=== PATIENT | male | born 1950 | race Two or more races ===

== ENCOUNTER 2016-05-16 18:52 | Inpatient (IN) | payer MEDICARE, MEDICAID ==
--- NOTE | 2016-05-16 19:26 | ED Physician Chart ---
Chief Complaint/HPI - Patient Information Date Seen:: 05/16/16 Time Seen:: 19:21 Chief Complaint:: agitation History of Present Illness:: [place] sent from [place] for difficult behavior w aggression and outbursts. pt reportely broke a window today. pt denies any major pmh. he denies any pain or recent illness or injury pt is easily aroused/upset per staff notes Allergies:: Allergies Allergy/AdvReac Type Severity Reaction Status Date / Time aspirin Allergy Verified 05/16/16 19:10 Vitals:: Vital Signs - 8 hr 05/16/16 19:12 Temp 98 F HR 63 RR 16 BP 138/62 O2 Sat % 99 Historian:: Patient, Medical Records Review:: Transfer documents Reviewed Review of Systems - Review of Systems General/Constitutional: No fever, No chills, No weight loss, No weakness, No diaphoresis, No edema, No loss of appetite Skin: No skin lesions, No rash, No bruising Head: No headache, No light-headedness Eyes: No loss of vision, No pain, No diplopia ENT: No earache, No nasal drainage, No sore throat, No tinnitus Neck: No neck pain, No swelling, No thyromegaly, No stiffness, No mass noted Cardio Vascular: No chest pain, No palpitations, No PND, No orthopnea, No edema Pulmonary: No SOB, No cough, No sputum, No wheezing GI: No nausea, No vomiting, No diarrhea, No pain, No melena, No hematochezia, No constipation, No hematemesis G/U: No dysuria, No frequency, No hematuria Musculoskeletal: No bone or joint pain, No back pain, No muscle pain Endocrine: No polyuria, No polydipsia Psychiatric: Prior psych history, No depression, No anxiety, No suicidal ideation, Other (agitation) Hematopoietic: No bruising, No lymphadenopathy Allergic/Immuno: No urticaria, No angioedema Neurological: No syncope, No focal symptoms, No weakness, No paresthesia, No headache, No seizure, No dizziness, No confusion, No vertigo Past Medical History - Past Medical History Past Medical History: DM Social History: Care Facility Psychiatricy History: Depression, Other (psychosis) Medication: Reviewed Family Medical History - Family Member Mother History Unknown: Yes Physical Exam - Physical Examination General/Constitutional: Awake, Well-developed, well-nourished, Alert, No distress, GCS 15, Non-toxic appearing, Ambulatory Other Gen/Cons comments:: currently calm and cooperative. nad oriented Head: Atraumatic Eyes: Lids, conjuctiva normal, PERRL, EOMI Skin: Nl inspection, No rash, No skin lesions, No ecchymosis, Well hydrated, No lymphadenopathy ENMT: External ears, nose nl, Nasal exam nl, Lips, teeth, gums nl Neck: Nontender, Full ROM w/o pain, No JVD, No nuchal rigidity, No bruit, No mass, No stridor Respiratory: Nl effort/Exclusion, Clear to Auscultation, No Wheeze/Rhonchi/Rales Cardio Vascular: RRR, No murmur, gallop, rubs, NL S1 S2 GI: No tenderness/rebounding/guarding, No organomegaly, No hernia, Normal BS's, Nondistended, No mass/bruits, No McBurney tenderness : No CVA tenderness Extremities: No tenderness or effusion, Full ROM, normal strength in all extremities, No edema, Normal digits & nails Neuro/Psych: Alert/oriented, DTR's symmetric, Normal sensory exam, Normal motor strength, Judgement/insight normal, Mood normal, Normal gait, No focal deficits Misc: normal gait, Normal back, No paraspinal tenderness Labs/Radiology/EKG Results - Lab Results Results: Laboratory Tests 05/16/16 05/16/16 05/16/16 19:35 19:35 19:35 WBC 6.9 RBC 4.51 Hgb 13.1 Hct 38.8 L MCV 86.1 MCH 29.1 MCHC Differential 33.8 RDW 12.5 Plt Count 222 MPV 7.9 Neutrophils % 69.3 Lymphocytes % 19.8 L Monocytes % 7.8 Eosinophils % 2.5 Basophils % 0.6 Sodium 137 Potassium 4.4 Chloride 101 Carbon Dioxide 29.8 Anion Gap 10.6 BUN 17 Creatinine 1.1 Est GFR ( Amer) > 60.0 Est GFR (Non-Af Amer) > 60.0 BUN/Creatinine Ratio 15.5 Glucose 111 H Calcium 9.7 Total Bilirubin 1.0 AST 12 L ALT 6 L Alkaline Phosphatase 91 Total Protein 7.2 Albumin 4.0 L Globulin 3.2 Albumin/Globulin Ratio 1.3 Triglycerides 179 H Cholesterol 166 LDL Cholesterol Direct 118 HDL Cholesterol 36 Urine Source CLEAN C Urine Color YELLOW Urine Clarity CLEAR Urine pH 5.5 Ur Specific Streeter 1.025 Urine Protein NEGATIVE Urine Glucose (UA) NEGATIVE Urine Ketones NEGATIVE Urine Blood NEGATIVE Urine Nitrate NEGATIVE Urine Bilirubin NEGATIVE Urine Urobilinogen 1.0 Ur Leukocyte Esterase NEGATIVE - EKG Interpretations EKG Time:: 19:45 Rhythm: nsr 60 [place]: 65 Rate: 60 Comments:: wnl ED Septic Shock - . Is Septic Shock (SBP<90, OR Lactate>4 mmol\L) present?: No - <6hrs of presentation: Vital Signs: Vital Signs - 8 hr 05/16/16 19:12 Temp 98 F HR 63 RR 16 BP 138/62 O2 Sat % 99 Reassessment (Disposition) - Reassessment Reassessment Condition:: Unchanged - Diagnosis Diagnosis:: 1 aggressive behavior 2 pt medically cleared for geripsych admission - Patient Disposition Admitted to:: [facility] Condition at Disposition:: Stable
[2016-05-16 19:49] LABS: % BASOPHILS 0.6 % (0.0-2.0); % EOSINOPHILS 2.5 % (0.0-5.0); % LYMPHOCYTES 19.8 % (20.0-50.0); % MONOCYTES 7.8 % (2.0-10.0); % NEUTROPHILS 69.3 % (40.0-80.0); HEMATOCRIT 38.8 % (39.0-49.0); HEMOGLOBIN 13.1 gm/dL (12.6-17.4); MEAN CELL VOLUME 86.1 fl (80-99); MEAN CORPUSCULAR HEMOGLOBIN 29.1 pg (27.0-31.0); MEAN CORPUSCULAR HGB CONC 33.8 pg (28.0-36.0); MEAN PLATELET VOLUME 7.9 fl; NEUTROPHILE ABSOLUTE 4.8 Th/cmm (1.8-8.0); PLATELET COUNT 222 Th/cmm (150-400); RED BLOOD COUNT 4.51 Mil/cmm (3.80-5.80); RED CELL DISTRIBUTION WIDTH 12.5 % (11.5-20.0); WHITE BLOOD COUNT 6.9 Th/cmm (4.8-10.8)
[2016-05-16 20:13] LABS: URINE BILIRUBIN NEGATIVE (NEGATIVE); URINE BLOOD NEGATIVE (NEGATIVE); URINE COLOR YELLOW; URINE GLUCOSE (UA) NEGATIVE (NEGATIVE); URINE KETONE NEGATIVE (NEGATIVE); URINE PH 5.5; URINE PROTEIN NEGATIVE (NEGATIVE)
[2016-05-16 20:14] LABS: ALB/GLOB RATIO 1.3 (1.0-1.8); ALKALINE PHOSPHATASE 91 U/L (34-104); ANION GAP 10.6 (7.0-16.0); BUN - UREA NITROGEN 17 mg/dL (7-25); BUN/CREATININE RATIO 15.5; CALCIUM SERUM 9.7 mg/dL (8.6-10.3); CARBON DIOXIDE 29.8 mEq/L (21.0-31.0); CHLORIDE 101 mEq/L (98-107); CHOLESTEROL 166 mg/dL (<200); CREATININE - SERUM 1.1 mg/dL (0.7-1.3); GLUCOSE 111 mg/dL (70-105); POTASSIUM SERUM 4.4 mEq/L (3.5-5.1); SGOT 12 U/L (13-39); SGPT/ALT 6 U/L (7-52); SODIUM SERUM 137 mEq/L (136-145); TRIGLYCERIDES 179 mg/dL (<150)
[2016-05-16] MEDS ORDERED: Maalox 30 mL Cup PO PRN (21:35)
[2016-05-16] MEDS ORDERED: Magnesium Hydroxide (MOM) 30 mL UDC PO PRN (21:35)
[2016-05-17 00:03] VITALS: BP 137/76
--- NOTE | 2016-05-17 09:42 | Psychosocial Evaluation ---
IDENTIFYING INFORMATION: The patient is a 65-year-old male. CHIEF COMPLAINT: No information from the patient. HISTORY OF PRESENT ILLNESS: The patient from [place] as the patient apparently get agitated, broke a window, he was aggressive, anger outburst, broke a window. The patient himself denies any such thing. He was a poor historian. He knew however, he is in the hospital, he knew the date. The patient reports he sleeps well and eats well. He denies any auditory or visual hallucinations. The patient is a well known case to me. I have been seeing him for the past 2 years while he was at [place]. He used to be at [place] in the past once. The patient has been demented and confused. PAST PSYCHIATRIC HISTORY: The patient was hospitalized at [place] before because of confusion and dementia. MEDICAL HISTORY: Deferred to the medical doctor. FAMILY AND SOCIAL HISTORY: The patient is . He has two children. He used to work in [employer]. He is retired. He has the [employer]. He reports he has a family that is very supportive. ALLERGIES: The patient is allergic to aspirin. MENTAL STATUS EXAMINATION: The patient is appropriately dressed, not well groomed. His mood is depressed. Affect is constricted. Thoughts are concrete. Speech is coherent. He was alert. He was oriented to place, person and time, but not to situation. He reports he sleep well and eat well. He denies any intent to harm himself or anybody though he broke a window. He was very agitated. He does not acknowledge that. He denies any auditory or visual hallucination. He is impulsive and unpredictable. Long and short term is good. He can remember his age, but recent memory is poor. He cannot remember the events led to coming here. His insight and judgment is impaired. He is impulsive, unpredictable. IMPRESSION: AXIS I: Dementia with behavior disturbances. MEDICAL DIAGNOSES: Deferred to the medical doctor. His assets he is accepting and negative poor coping ____. INITIAL TREATMENT PLAN: The patient will continue with Aricept 10 mg at bedtime. We will do group therapy, milieu therapy and individual therapy. We will watch his behavior and make sure the patient is safe. ESTIMATED LENGTH OF STAY: 3-7 days. DISCHARGE CRITERIA: Decreased agitation, no longer threatening. After discharge, outpatient treatment. [facility]# [id number]
[2016-05-17] MEDS: Multivitamin Tab PO SCH (10:09)
[2016-05-17 12:15] LABS: HEP B CORE IGM Negative (Negative); HEP C ANTIBODY <0.1 s/co ratio (0.0-0.9)
--- NOTE | 2016-05-17 14:03 | History & Physical ---
HISTORY OF PRESENT ILLNESS: The patient is a 65-year-old male with long history of chronic constipation, degenerative joint disease, dementia, admitted to [facility] under Dr. Sahh's service for evaluation and treatment. The patient has been very confused, combative. No chest pain, no shortness of breath, no nausea, no vomiting, no fever, no chills. PAST MEDICAL HISTORY: Significant for chronic constipation, degenerative joint disease, dementia. PAST SURGICAL HISTORY: No recent surgery. ALLERGIES: Aspirin. SOCIAL HISTORY: No smoking, no alcohol, no drug. FAMILY HISTORY: Noncontributory. MEDICATIONS: Follow admission reconciliation. REVIEW OF SYSTEMS: RENAL SYSTEM: No history of chronic renal disorder. CARDIOVASCULAR SYSTEM: No coronary artery disease. ENDOCRINE SYSTEM: No diabetes or thyroid problem. GASTROINTESTINAL SYSTEM: No upper or lower gastrointestinal bleed. NEUROLOGICAL: He has history of dementia. PHYSICAL EXAMINATION: GENERAL: He is awake, not coherent. VITAL SIGNS: Temperature 98, heart rate 78, blood pressure 134/84. HEENT: Normocephalic. Pupils reacting equal to light and accommodation. Sclerae clear. NECK: Supple. Negative for lymphadenopathy, JVD or bruit. CHEST: Bilateral normal. No rhonchi or wheezing. HEART: S1, S2 normal. No murmur or gallop. ABDOMEN: Soft. Bowel sounds positive. EXTREMITIES: No edema. BACK: No tenderness. SKIN: Intact. GENITALIA AND RECTAL: No complaint, ____ primary physician. NEUROLOGIC: He is awake, alert, not fully oriented. No focal motor or sensory deficits. Cranial nerves 2-12 intact. ASSESSMENT: 1. Chronic constipation. 2. Degenerative joint disease. 3. Dementia. PLAN: The patient will be admitted to the hospital under Dr. Shah's service. Medical problems to be addressed during hospitalization is dementia and psychosis. Medical problems to be addressed at discharge is constipation and degenerative joint disease. The patient is medically stable for activity. Thank you, Dr. Shah for asking me to see your patient. JOB# [id number]
[2016-05-18] MEDS: Multivitamin Tab PO SCH (09:35)
--- NOTE | 2016-05-19 03:43 | Progress Notes ---
Case was discussed with staff of the patient, reviewed records. The patient continues to be confused and depressed. Continues to stay to himself, unable to carry on a conversation or make safe plan for self-care. He is sleeping well and eating well. He is compliant with the medication with no side effects. He looked disheveled, disorganized, and internally preoccupied. I will be adding Lexapro to his medication to help with his depression, and so far, no side effects with the current medication, no sedation, no nausea, and we will continue to work with the patient in group therapy, milieu therapy, and adjust the medications as needed. JOB# [id number]
[2016-05-19] MEDS: Escitalopram Oxalate 5 mg Tab PO SCH (08:59)
[2016-05-19] MEDS: Multivitamin Tab PO SCH (09:00)
--- NOTE | 2016-05-20 01:00 | Progress Notes ---
Case was discussed with staff of the patient, reviewed records. The patient continues to be depressed, isolating himself, feeling irritable at times, unpredictable, impulsive, needing redirection. He is sleeping well and eating better. He is compliant. He still gets agitated at times, but so far, he is compliant with the medication with no side effects, no sedation, no nausea, and I initiated Lexapro on the patient for the covering psychiatrist, medication may need to be adjusted and watched for side effects. We will continue to work with the patient in group therapy, milieu therapy, and adjust medication as needed. JOB# [id number]
[2016-05-20] MEDS: Multivitamin Tab PO SCH (09:08)
[2016-05-20] MEDS: Escitalopram Oxalate 5 mg Tab PO SCH (09:08)
--- NOTE | 2016-05-20 19:26 | Progress Notes ---
SUBJECTIVE: The patient seen, chart reviewed, discussed with staff. The patient currently __in__ the hospital. Again, the patient currently in the hospital, agitation, broke window, aggressive, angry outbursts. The patient is a poor historian, history of dementia, noted to be with wandering episodes, states he is here because, "I fell down." _AO___ to name, place, not situation and he knows the year and the month. Dr. Shah has been adjusting and titrating medications. The patient is isolative, not quite sure where he is going to go upon discharge. Eating with prompting. Sleeping fairly well. ASSESSMENT: The patient remains symptomatic, wanders, history of agitation and aggression, remains impulsive and unpredictable. PLAN: Continue to monitor. The patient unable to participate in self-care planning discussions at this time due to the severity of his confusion. PLAN: We will continue to monitor and titrate medications as tolerated. [facility]# [id number]
[2016-05-21] MEDS: Escitalopram Oxalate 5 mg Tab PO SCH (09:24)
[2016-05-21] MEDS: Multivitamin Tab PO SCH (09:25)
--- NOTE | 2016-05-21 21:42 | Progress Notes ---
SUBJECTIVE: The patient was seen, chart reviewed, and discussed with staff. The patient is currently in the hospital, agitation, aggressive, angry outbursts, and history of depression. On [id number], the patient is sleeping, arousable, but not really talking to me. He remains pretty confused, disoriented, and still with the wandering episodes. Staff noting he continues to require a lot of prompting and redirection. Still isolative. Eating is with prompting. Sleeping fairly well. No overt side effects noted to the medications. ASSESSMENT: The patient remains impulsive and unpredictable. History of agitation and aggression. PLAN: Due to the persistence of the patient's symptoms that are continued with concerns for safety, we will continue to monitor and titrate his medications. The patient is to follow up with Dr. Shah in the morning. JOB# [id number]
[2016-05-22] MEDS: Escitalopram Oxalate 5 mg Tab PO SCH (09:48)
[2016-05-22] MEDS: Multivitamin Tab PO SCH (09:49)
--- NOTE | 2016-05-23 04:59 | Progress Notes ---
Case discussed with staff of the patient, reviewed records. The patient is reported by the staff that he has been isolating himself. He continues to be unpredictable, impulsive. His family wanting to be in the place where they could pacify him on the way home in [place]. I asked the staff to make sure that the case picker work on it. The patient so far is compliant with the medication with no side effects, no sedation, no nausea, ____ placement for him and he has been compliant with the medication with no side effects and his RPR is reactive and testing for ____ has been sent. His hepatitis panel was negative. His TSH within normal range. His CBC shows a low hematocrit and low lymphocytes, the rest within normal range. Urinalysis within normal range. Chemistry panel with high blood sugar. The rest is within normal range. Triglyceride is high at 179. I will be consulting the medical doctor regarding abnormal lab work and we will continue to work with the patient in group therapy, milieu therapy, adjust the medication as needed. JOB# [id number]
[2016-05-23] MEDS: Multivitamin Tab PO SCH (09:11)
[2016-05-23] MEDS: Escitalopram Oxalate 5 mg Tab PO SCH (09:11)
[2016-05-23 20:09] LABS: FTA ABS TREPONEMA PALLIDUM Non Reactive (Non Reactive)
--- NOTE | 2016-05-24 00:45 | Progress Notes ---
Case was discussed with staff of the patient, reviewed records. The patient is showing some progress. He is able to talk about his feelings. He is participating in groups. He is depressed. He wants to live on his own, though he is demented, cannot live on his own. His brother wanted him to live in a place where he could come and visit him daily and to be on his way home, which is in [place], and I asked the staff to ____ wish for the brother, so the patient could get to see his family more often and he was at [place] and I will be increasing Lexapro to 10 mg a day to help with his depression and will continue to work with the patient in group therapy, milieu therapy, and adjust medications as needed. JOB# [id number]
[2016-05-24] MEDS: Multivitamin Tab PO SCH (10:13)
--- NOTE | 2016-05-25 00:50 | Progress Notes ---
Case was discussed with staff of the patient. The patient has been described to be sundowning, continues to have episodes of confusion, continues to need redirection. He is already on Aricept 10 mg at bedtime. I increased the dose of Lexapro to 10 mg a day. I will be adding Namenda to his medication and so far, no side effects with the medication, no sedation, and no nausea. We will continue to work with the patient in group therapy, milieu therapy, and adjust the medication as needed. JOB# [id number]
[2016-05-25] MEDS: Multivitamin Tab PO SCH (09:43)
--- NOTE | 2016-05-26 02:29 | Progress Notes ---
Case was discussed with staff of the patient, reviewed records. The patient continues to be reported to have episodes where he sundowns and continues to have episodes of confusion and irritability. I did initiate Namenda on the patient. I discussed with Yadira, the chart nurse, the situation where the patient has a positive RPR; however, we do not have the results of , and I do not see any orders from Dr. Morse so far. He was informed 3 days ago about this and no side effects with the medication, no sedation, no nausea, and no extrapyramidal symptoms. We will continue to work with the patient in group therapy, milieu therapy, and adjust medication as needed. JOB# [id number]
[2016-05-26] MEDS: Multivitamin Tab PO SCH (08:55)
--- NOTE | 2016-05-27 02:43 | Progress Notes ---
Case was discussed with staff of the patient, reviewed records. The patient continues to be confused, demented with the episodes of sundowning. He continues to be unpredictable, impulsive, needing redirection. I initiated Namenda on him. Also, he started on penicillin because of the positive RPR because of syphilis. He is compliant with the medication with no side effects, no sedation, no nausea, and we will continue to work with the patient in group therapy, milieu therapy, and adjust medications as needed. JOB# [id number]
[2016-05-27] MEDS: Multivitamin Tab PO SCH (08:41)
--- NOTE | 2016-05-28 01:46 | Progress Notes ---
Dr. Jose is covering for Dr. Shah. SUBJECTIVE: Chart was reviewed and the patient interviewed. Also discussed the patient's condition with the staff and reviewed records and labs. The patient remains depressed. The patient is still pacing up and down the unit. Also, he is isolative and withdrawn. Also during my interview, the patient is guarded and he does not want to talk much. The patient's brother called me yesterday and he refused to answer his call and when asked about reasons, he said, "I do not want to do this." The patient is still extremely angry and depressed. He is still guarded. Otherwise, he is compliant with taking his medications with no side effects of medications. ASSESSMENT: The patient is still depressed and confused. TREATMENT PLAN: We will continue to monitor his behavior and his condition closely. Also, continue to work on his depression and anger, and we will continue to follow up with you. JOB# [id number]
[2016-05-28] MEDS: Multivitamin Tab PO SCH (08:47)
--- NOTE | 2016-05-29 01:54 | Progress Notes ---
SUBJECTIVE: Chart reviewed and the patient interviewed. Also, discussed the patient's condition with the staff and reviewed records and labs. The patient is still anxious and still seems to be paranoid and suspicious. The patient also is still depressed and wants to be left alone. The patient also still does not want to talk about his family and the reason for his anger towards them____. The patient also is still isolative. Otherwise, the patient continued to comply with taking his medications and the patient denies any side effects of medications. ASSESSMENT: The patient is still depressed. TREATMENT PLAN: Continue monitoring his behavior and his condition closely. Also, continue to work on his ineffective coping and followup. JOB# [id number]
[2016-05-29] MEDS: Multivitamin Tab PO SCH (08:53)
--- NOTE | 2016-05-30 00:41 | Progress Notes ---
Case was discussed with staff of the patient, reviewed records. The patient has been isolating himself. Continues to have sundowning, continues to stay to himself, poor eye contact. We are working also on placement for this patient. He is compliant with the medication with no side effects, no sedation, and no nausea. I will be increasing his Namenda to 5 mg twice a day to help improve his cognition. Hopefully, that will help him feel better and so far no side effects, no sedation, no nausea, and we will continue to work with the patient in group therapy, milieu therapy, and adjust the medication as needed. JOB# [id number]
[2016-05-30] MEDS: Multivitamin Tab PO SCH (09:02)
--- NOTE | 2016-05-31 00:25 | Progress Notes ---
Case was discussed with staff of the patient, reviewed records. The patient continues to be confused, stays to himself. Continues to be unpredictable and impulsive. He tolerated the increase in Lexapro with no side effects and I have added Namenda and increased the dose yesterday to 5 mg twice a day and so far, no side effects, no sedation, no nausea, and no extrapyramidal symptoms. We will continue to work with the patient in group therapy, milieu therapy, and adjust medication as needed. JOB# [id number]
[2016-05-31] MEDS: Multivitamin Tab PO SCH (08:59)
--- NOTE | 2016-05-31 22:46 | Progress Notes ---
Case discussed with staff of the patient, reviewed records. The patient continues to be confused and demented. Continues to have poor insight. Continues to be unable to make safe plan for self-care. Continues to need redirection, unpredictable, impulsive, depressed, isolate himself and also working on placement for patient and so far no side effects, no sedation, no nausea, no extrapyramidal symptoms and the staff reports finding place ____ see him and I will continue to work with patient in group therapy, milieu therapy, adjust medication as needed. JOB# [id number]
[2016-06-01] MEDS: Multivitamin Tab PO SCH (09:00)
--- NOTE | 2016-06-01 18:57 | Discharge Summary ---
IDENTIFYING INFORMATION: The patient is a 65-year-old male. REASON FOR HOSPITALIZATION: The patient was sent from [place] because of agitation. He has been acting depressed, having crying spells, isolating himself. He has been unable to participate in meaningful conversation or make safe plan for self-care. He has dementia. He is a well known case to me. I have seen him in the past at this facility, also seen him in [place] and also [facility]. COURSE IN THE HOSPITAL: I started the patient for his depression on Lexapro, increased the dose to 10 mg a day. He was continued with the Aricept 10 mg at bedtime and also added Namenda 5 mg, increased to 5 mg twice a day. He was found to have syphilis and he was given benzathine penicillin with the first dose being on the 05/26/2016. The patient also was continued on the thiamine, timolol optic solution. The patient progressively improved. He was sleeping well, eating well. He was no longer acting in anyway dangerous. At the beginning, the family reported that they want the patient to go to a facility in [place]; however, the family changed their mind after the manager of case management called this morning the brother. He said that he is okay with the brother going back to [place], so as we have a placement for him, the patient was discharged to a lesser level of care. FINAL DIAGNOSIS: AXIS I: Dementia with behavioral disturbances. MEDICAL DIAGNOSIS: Syphilis. The patient will be going to [place], will follow up with the psychiatrist, primary care physician and therapist. Also, he needs to get the extra injection of the benzathine penicillin.. EXPECTED OUTCOME: Stable if the patient complies with the above. JOB# [id number]
--- NOTE | 2016-06-01 20:40 | Progress Notes ---
Case was discussed with staff of the patient, reviewed records. The patient seems to be showing progress. Sleeping better and eating better. He has been in general still confused, demented, but he is not acting anyway dangerous. He is sleeping better and eating better. The staff so far is trying to work on placement. I hear it from the staff that home health care case manager was not sure that if his brother wants him to go to [place] or somewhere ____ and she will work on it and if we have a placement available today, he would be discharged. Otherwise, we will do it when the placement becomes available as we cannot live on his own because of his dementia and behavior and we will continue to work with the patient in group therapy, milieu therapy, and adjust medications as needed. JOB# [id number]
== END 2016-06-01 15:15 | DRG 884 ==
LOC: ER 18:52 → EDSEX 18:52 → GERO 20:25
PROVIDERS: ADMIT Psychiatry & Neurology Psychiatry; ATTEND Psychiatry & Neurology Psychiatry
DX: F03.91 Unspecified dementia, unspecified severity, with behavioral disturbance (principal); F32.9 Major depressive disorder, single episode, unspecified; E11.9 Type 2 diabetes mellitus without complications; K59.00 Constipation, unspecified; A53.9 Syphilis, unspecified; M19.90 Unspecified osteoarthritis, unspecified site; Z88.6 Allergy status to analgesic agent
CPT/HCPCS: 36415-UA; 80053-TC; 80061-TC; 80074-90; 81003-TC; 82948-90; 84443-TC; 85025-TC; 86592-TC; 86593-TC; 86780-90; 90899; 93005; G0410; J0561; Z7610

== ENCOUNTER 2017-03-23 17:39 | Inpatient (IN) | payer MEDICARE, MEDICAID ==
[2017-03-23 18:09] LABS: % BASOPHILS 0.3 % (0.0-2.0); % EOSINOPHILS 1.8 % (0.0-5.0); % LYMPHOCYTES 17.4 % (20.0-50.0); % MONOCYTES 6.8 % (2.0-10.0); % NEUTROPHILS 73.7 % (40.0-80.0); HEMOGLOBIN 14.6 gm/dL (12-16); MEAN CELL VOLUME 90.4 fl (80-99); MEAN CORPUSCULAR HEMOGLOBIN 30.7 pg (27.0-31.0); MEAN CORPUSCULAR HGB CONC 33.9 pg (28.0-36.0); MEAN PLATELET VOLUME 8.4 fl; NEUTROPHILE ABSOLUTE 4.1 Th/cmm (1.8-8.0); PLATELET COUNT 162 Th/cmm (150-400); RED BLOOD COUNT 4.76 Mil/cmm (3.80-5.80); RED CELL DISTRIBUTION WIDTH 12.7 % (11.5-20.0); WHITE BLOOD COUNT 5.6 Th/cmm (4.8-10.8)
[2017-03-23 18:25] LABS: URINE BILIRUBIN NEGATIVE (NEGATIVE); URINE BLOOD TRACE (NEGATIVE); URINE GLUCOSE (UA) NEGATIVE (NEGATIVE); URINE KETONE NEGATIVE (NEGATIVE); URINE PH 5.5 (4.6 - 8.0); URINE PROTEIN NEGATIVE (NEGATIVE)
[2017-03-23 18:27] LABS: ALB/GLOB RATIO 1.6 (1.0-1.8); ALKALINE PHOSPHATASE 65 U/L (34-104); ANION GAP 9.2 (7.0-16.0); BILIRUBIN,TOTAL 0.8 mg/dL (0.3-1.0); CALCIUM SERUM 9.3 mg/dL (8.6-10.3); CARBON DIOXIDE 25.7 mEq/L (21.0-31.0); CHLORIDE 104 mEq/L (98-107); CREATININE - SERUM 0.9 mg/dL (0.7-1.3); GLUCOSE 102 mg/dL (70-105); MAGNESIUM 2.1 mg/dL (1.9-2.7); POTASSIUM SERUM 3.9 mEq/L (3.5-5.1); SGOT 13 U/L (13-39); SGPT/ALT 5 U/L (7-52); SODIUM SERUM 135 mEq/L (136-145)
[2017-03-23 18:30] LABS: URINE COLOR YELLOW
[2017-03-23 18:31] LABS: URINE BACTERIA OCCASIONAL /hpf (NONE SEEN); URINE EPITHELIAL CELLS FEW /lpf (FEW); URINE WBC 0-2 /hpf (0-5)
[2017-03-23 19:45] LABS: BUN/CREATININE RATIO 24.4
[2017-03-23 19:47] LABS: BUN - UREA NITROGEN 22 mg/dL (7-25)
[2017-03-23] MEDS ORDERED: Magnesium Hydroxide (MOM) 30 mL UDC PO PRN (22:49)
[2017-03-23 23:49] VITALS: BP 141/84
[2017-03-24] MEDS ORDERED: Maalox 30 mL Cup PO PRN (01:15)
[2017-03-24] MEDS: Multivitamin w/ Minerals Tab PO SCH (08:46)
--- NOTE | 2017-03-24 12:47 | History & Physical ---
ADMIT DATE: 03/24/2017 IDENTIFYING INFORMATION: The patient is a 66-year-old male. CHIEF COMPLAINT: "I wanted to harm myself." HISTORY OF PRESENT ILLNESS: The patient was seen by me yesterday at [place], and he was upset, angry. He reports that he will find a way to kill himself. The patient has been easily agitated, irritable. Today, he was a bit calmer. He was denying any intent to harm self or anybody. He told the staff that he got upset because I keep asking about his suicidal ideation, which I usually have to do all the time. He has been sleeping well, eating well. He denies any current auditory or visual hallucination or paranoia. PAST PSYCHIATRIC HISTORY: Multiple prior admissions for similar reasons. MEDICATIONS: The patient has been on Depakote and Aricept and Namenda. He is getting demented, confused. He is on Aricept 10 mg at bedtime, Lexapro 20 mg daily, Namenda 10 mg twice a day. ALLERGIES: THE PATIENT IS ALLERGIC TO ASPIRIN. MEDICAL HISTORY: Deferred to the medical doctor. FAMILY AND SOCIAL HISTORY: The patient is , has 2 children. He has 1 son who killed himself. He used to work for a [employer]. He is retired, [employer]. Family is supportive. MENTAL STATUS EXAMINATION: The patient is appropriately dressed, appropriately groomed. Mood is depressed. Affect is sad. Thoughts are clear. Speech crying yesterday. He was suicidal today. He is better. He reports that he will be able to contract for safety, but his sleep and appetite varies. He denies any auditory or visual hallucination, not feeling paranoid. Long-term term memory and short term memory are poor. Insight and judgment are impaired. IMPRESSION: AXIS I: Major depression, recurrent, severe with no psychosis, dementia. MEDICAL DIAGNOSES: Deferred to the medical doctor. His assets, he wants to get help. Negative poor coping skills. INITIAL TREATMENT PLAN: The patient will be continued on medication. We will do group therapy, milieu therapy, individual therapy. ESTIMATED LENGTH OF STAY: 3-7 days. DISCHARGE CRITERIA: Decreasing depression, no longer suicidal, after discharge, outpatient treatment. JOB# [id number]
--- NOTE | 2017-03-24 17:00 | History & Physical ---
ADMIT DATE: REFERRING PHYSICIAN: Jordon Liu MD CHIEF COMPLAINT: Agitation. HISTORY OF PRESENT ILLNESS: A 66-year-old male with past medical history significant for diabetes and dementia who presents after apparently getting agitated and aggressive. The patient is a poor historian and denies any medical complaints. PAST MEDICAL HISTORY: The patient has history of diabetes mellitus, traumatic brain injury, dementia, anemia, and glaucoma. MEDICATIONS: As per reconciliation. ALLERGIES: The patient has allergy to aspirin. SOCIAL HISTORY: The patient lives in a [facility]. No tobacco, alcohol, or illicit drug use. FAMILY HISTORY: Noncontributory. REVIEW OF SYSTEMS: IMMUNOLOGIC: No recurrent infection. CARDIOVASCULAR: The patient has no known history of heart disease or hypertension. GI: No nausea, vomiting, or diarrhea. ENDOCRINE: The patient has diabetes. No thyroid disorder. NEUROLOGIC: No seizure or stroke. HEMATOLOGIC: No bleeding or clotting disorder. The patient has chronic anemia. PHYSICAL EXAMINATION: GENERAL: The patient is awake, alert, oriented, and in no acute distress. VITAL SIGNS: Temperature 97.3, pulse 62, respirations 20, and blood pressure 117/76. HEENT: Pupils are equally round. Anicteric sclerae. NECK: Supple. No JVD, mass, or bruit. LUNGS: Clear to auscultation. HEART: S1 and S2. Regular rate and rhythm. ABDOMEN: Soft and nontender. Positive bowel sounds. EXTREMITIES: No clubbing, cyanosis, or edema. NEUROLOGIC: Moves all extremities equally and no lateralizing sign. IMPRESSION: 1. Dementia. 2. History of traumatic brain injury. 3. Diabetes mellitus type 2. 4. Anemia. 5. Glaucoma. PLAN: Continue the patient's current medications. He is to continue his diabetic regimen. He is medically cleared to participate in activities and is to follow up with primary care physician upon discharge. JOB# [id number]
--- NOTE | 2017-03-24 21:19 | ER Physician Documentation ---
DATE OF SERVICE: EMERGENCY ROOM EVALUATION IDENTIFICATION: This patient was sent to this hospital because the patient was depressed and wanting to kill himself. He was sent by [facility], telephone [phone]. The patient has a previous history of diabetes. The patient was sent here by Dr. Chelle Morse. The patient's primary physician is Dr. Morse. Alternate physician, ____. Psychiatrist is Dr. Belen Shah. ENT is Dr. Kalin Dobson. [facility] phone number is [phone]. CHIEF COMPLAINT: The patient has some delusion, verbalizing that he wants to kill himself but he said he did not say that, they asked him and he said yes when the time comes he would kill himself but not right now, why kill now at the present moment, that is what he told me. HISTORY OF PRESENT ILLNESS: The patient seems to be comfortable, lying in bed, not in any acute distress. He has no cardiac complaints. He has no pulmonary complaints. There are no other significant complaints. 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 The other diagnosis that he carries, a diagnosis of diabetes mellitus also he carries with him. Past history otherwise is significant for dementia. PAST SURGICAL HISTORY: None. MEDICATIONS: Please follow the profile that is given. REVIEW OF SYSTEMS: EYES: No history of double vision, blurring, blindness. CENTRAL NERVOUS SYSTEM: No TIA, stroke, encephalitis, meningitis. Grossly normal. PULMONARY: No history of pneumonia, TB, pulmonary embolism. GASTROINTESTINAL: No history of diarrhea, upper or lower GI bleeding. GENERAL: The patient is awake, alert, oriented, not in any acute cardiorespiratory distress. Overall, he looks to be okay. HEENT: Normal. Conjunctivae pink. Sclerae white. Jugular venous pressure is normal. There is no cyanosis, petechia, ecchymosis. CHEST: Clear without any rales, rhonchi, or bronchial breathing. ABDOMEN: Soft, benign and negative. He denied killing himself at the present moment. His past medical problem addressed during hospitalization in the past was psychosis but he was advised cleared for physical activity. PAST PSYCHIATRIC HISTORY: The patient was hospitalized here and also at [facility] because of aggressive behavior. He is impulsive and unpredictable. This is a past history, now which is given to me. MEDICAL HISTORY: Anemia, glaucoma, dementia, and history of traumatic brain injury. ALLERGIC: Aspirin. MEDICATIONS: The patient takes vitamin D, Aricept 10 mg at bedtime, Lexapro 10 mg at bedtime, Namenda 10 mg twice daily, multivitamin, thiamine and timolol. FAMILY AND SOCIAL HISTORY: Reveals that he is . He has 2 sons, 40 years of age. He used to work in [employer]. He occasionally smokes. He occasionally drinks beer. He is retired. [employer]. No family psychiatric history. Family is supportive. The patient was seen here and did not find him to be in any aggressive behavior. Abdomen is soft and benign and negative. Central nervous system is normal. I do not see any definite blood pressure medications that he is taking. In conclusion, the patient has excessive agitation, wanting to kill himself, but he said he does not want to kill himself at the present moment. EKG was done which is within normal limits, normal sinus rhythm. The patient has many other diagnoses which include anemia, unspecified; type 2 diabetes mellitus without any complications; difficulty in walking, not elsewhere classified; unspecified lack of coordination; personal history of traumatic brain injury; unspecified glaucoma; unspecified dementia with behavioral disturbances; major depressive disorder, single episode, unspecified; unspecified psychosis, not due to substance or known physiological conditions; primary generalized osteoarthritis; primary osteoarthritis, right shoulder. The patient had lab workup done. Urine examination was showing negative and had only 2-5 wbc's present. Chemistry is showing sodium 135, potassium 3.9, chloride 104, CO2 of 25.7, BUN is not yet available, creatinine is normal or near-normal I should say at 0.9, glucose is 102, so diabetes if he has it is under control, calcium is 9.3, magnesium 2.1, bilirubin is 0.8, AST is 13, ALT is 5, alkaline phosphatase is 65, total protein 6.6, and albumin is 4.1. The patient's hematology shows white count of 5.6, hemoglobin is 14.6, hematocrit is 43, platelet count 162,000, neutrophils 73.7, lymphocytes 17.4, monocytes 6.8, eosinophils 1.8. So once we get the BUN, probably the patient could be sent to a psychiatric hospital. I do not see any acute medical condition that keeps the patient here. JOB# [id number]
[2017-03-25] MEDS: Multivitamin w/ Minerals Tab PO SCH (08:30)
--- NOTE | 2017-03-25 17:09 | General Progress Note ---
Subjective - Review of Systems Service Date: 03/25/17 Subjective: resting comfortably no distress Objective - Results Result Diagrams: 03/23/17 18:00 03/23/17 18:00 Recent Labs: Laboratory Last Values WBC 5.6 Th/cmm (4.8-10.8) 03/23/17 18:00 RBC 4.76 Mil/cmm (3.80-5.80) 03/23/17 18:00 Hgb 14.6 gm/dL (12-16) 03/23/17 18:00 Hct 43.0 % (41.0-60) 03/23/17 18:00 MCV 90.4 fl (80-99) 03/23/17 18:00 MCH 30.7 pg (27.0-31.0) 03/23/17 18:00 MCHC Differential 33.9 pg (28.0-36.0) 03/23/17 18:00 RDW 12.7 % (11.5-20.0) 03/23/17 18:00 Plt Count 162 Th/cmm (150-400) 03/23/17 18:00 MPV 8.4 fl 03/23/17 18:00 Neutrophils % 73.7 % (40.0-80.0) 03/23/17 18:00 Lymphocytes % 17.4 % (20.0-50.0) L 03/23/17 18:00 Monocytes % 6.8 % (2.0-10.0) 03/23/17 18:00 Eosinophils % 1.8 % (0.0-5.0) 03/23/17 18:00 Basophils % 0.3 % (0.0-2.0) 03/23/17 18:00 Sodium 135 mEq/L (136-145) L 03/23/17 18:00 Potassium 3.9 mEq/L (3.5-5.1) 03/23/17 18:00 Chloride 104 mEq/L (98-107) 03/23/17 18:00 Carbon Dioxide 25.7 mEq/L (21.0-31.0) 03/23/17 18:00 Anion Gap 9.2 (7.0-16.0) 03/23/17 18:00 BUN 22 mg/dL (7-25) 03/23/17 18:00 Creatinine 0.9 mg/dL (0.7-1.3) 03/23/17 18:00 Est GFR ( Amer) > 60.0 ml/min (>90) 03/23/17 18:00 Est GFR (Non-Af Amer) > 60.0 ml/min 03/23/17 18:00 BUN/Creatinine Ratio 24.4 03/23/17 18:00 Glucose 102 mg/dL (70-105) 03/23/17 18:00 POC Glucose 101 MG/DL (70 - 105) 03/25/17 06:30 Calcium 9.3 mg/dL (8.6-10.3) 03/23/17 18:00 Magnesium 2.1 mg/dL (1.9-2.7) 03/23/17 18:00 Total Bilirubin 0.8 mg/dL (0.3-1.0) 03/23/17 18:00 AST 13 U/L (13-39) 03/23/17 18:00 ALT 5 U/L (7-52) L 03/23/17 18:00 Alkaline Phosphatase 65 U/L (34-104) 03/23/17 18:00 Total Protein 6.6 gm/dL (6.0-8.3) 03/23/17 18:00 Albumin 4.1 gm/dL (4.2-5.5) L 03/23/17 18:00 Globulin 2.5 gm/dL 03/23/17 18:00 Albumin/Globulin Ratio 1.6 (1.0-1.8) 03/23/17 18:00 Urine Source CLEAN C 03/23/17 18:20 Urine Color YELLOW 03/23/17 18:20 Urine Clarity CLEAR (CLEAR) 03/23/17 18:20 Urine pH 5.5 (4.6 - 8.0) 03/23/17 18:20 Ur Specific [place] >= 1.030 (1.005-1.030) 03/23/17 18:20 Urine Protein NEGATIVE mg/dL (NEGATIVE) 03/23/17 18:20 Urine Glucose (UA) NEGATIVE mg/dL (NEGATIVE) 03/23/17 18:20 Urine Ketones NEGATIVE mg/dL (NEGATIVE) 03/23/17 18:20 Urine Blood TRACE (NEGATIVE) 03/23/17 18:20 Urine Nitrate NEGATIVE (NEGATIVE) 03/23/17 18:20 Urine Bilirubin NEGATIVE (NEGATIVE) 03/23/17 18:20 Urine Urobilinogen 1.0 E.U./dL (0.2 - 1.0) 03/23/17 18:20 Ur Leukocyte Esterase NEGATIVE (NEGATIVE) 03/23/17 18:20 Urine RBC 2-5 /hpf (0-5) H 03/23/17 18:20 Urine WBC 0-2 /hpf (0-5) 03/23/17 18:20 Ur Epithelial Cells FEW /lpf (FEW) 03/23/17 18:20 Urine Bacteria OCCASIONAL /hpf (NONE SEEN) 03/23/17 18:20 - Physical Exam Vitals and I&O: Vital Signs Temp 97.8 F 03/25/17 16:19 Pulse 90 03/25/17 16:19 Resp 20 03/25/17 16:19 BP 114/88 03/25/17 16:19 Pulse Ox 97 03/25/17 16:19 Intake & Output 03/24/17 03/25/17 03/25/17 18:59 06:59 18:59 Intake Total 700 720 Balance 700 720 Intake: Oral 700 720 Other: # Voids 4 1 # Bowel Movements 2 Stool Characteristics Soft Soft Formed Formed Active Medications: Current Medications Acetaminophen (Tylenol) 650 mg PO Q4HR PRN PRN Reason: Pain Stop: 05/22/17 22:48 Al Hydrox/Mg Hydrox/Simethicone (Maalox) 30 ml PO Q6H PRN PRN Reason: Dyspepsia Stop: 05/23/17 01:14 Cholecalciferol (Vitamin D3) 3,000 iu PO DAILY [facility] Stop: 05/23/17 08:59 Last Admin: 03/25/17 08:29 Dose: 3,000 iu Docusate Sodium (Colace) 100 mg PO BID [facility] Stop: 05/23/17 08:59 Last Admin: 03/25/17 16:42 Dose: 100 mg Donepezil HCl (Aricept) 10 mg PO HS [facility] Stop: 05/23/17 20:59 Last Admin: 03/24/17 21:01 Dose: 10 mg Escitalopram Oxalate (Lexapro) 20 mg PO DAILY [facility] PRN Reason: Protocol Stop: 05/23/17 08:59 Last Admin: 03/25/17 08:29 Dose: 20 mg Lorazepam (Ativan) 0.5 mg PO Q6H PRN; Protocol PRN Reason: Anxiety/Agitation Stop: 05/23/17 01:14 Magnesium Hydroxide (Milk Of Magnesia) 30 ml PO DAILY PRN PRN Reason: Constipation Stop: 05/22/17 22:48 Memantine (Namenda) 10 mg PO BID [facility] Stop: 05/23/17 08:59 Last Admin: 03/25/17 16:42 Dose: 10 mg Thiamine HCl (Vitamin B1) 100 mg PO DAILY [facility] Stop: 05/23/17 08:59 Last Admin: 03/25/17 08:30 Dose: 100 mg Timolol Maleate (Timoptic 0.5% Oph Soln) 1 drop EACH EYE BID [facility] Stop: 05/23/17 08:59 Last Admin: 03/25/17 16:42 Dose: 1 drop Zolpidem Tartrate (Ambien) 5 mg PO HS PRN PRN Reason: Insomnia Stop: 05/23/17 01:14 General: Alert HEENT: Atraumatic, PERRLA, EOMI Neck: Supple, JVD Cardiovascular: Regular rate, Normal S1, Normal S2 Lungs: Clear to auscultation Abdomen: Bowel sounds, Soft Assessment/Plan - Assessment Assessment: 1. Dementia. 2. History of traumatic brain injury. 3. Diabetes mellitus type 2. 4. Anemia. 5. Glaucoma. - Plan Plan: cont current treatment
--- NOTE | 2017-03-25 23:41 | Progress Notes ---
DATE: 03/25/2017 Case was discussed with staff of the patient. The patient is minimizing the events that led to coming here. He is sleeping better, eating better. He is demented, confused. He is on Lexapro 10 mg a day, Aricept 10 mg at bedtime. No side effects with the medication, no sedation, no nausea. No extrapyramidal symptoms. We will continue to work with the patient in group therapy, milieu therapy, and adjust the medication as needed. JOB# [id number]
[2017-03-26] MEDS: Multivitamin w/ Minerals Tab PO SCH (08:47)
--- NOTE | 2017-03-26 16:43 | Internal Medicine Prog Note ---
Internal Medicine Subjective - Subjective Service Date: 03/26/17 Patient seen and examined:: with staff Patient is:: awake, verbal, in bed, talking, confused Per staff patient has:: no adverse event Internal Medicine Objective - Results Result Diagrams: 03/23/17 18:00 03/23/17 18:00 Recent Labs: Laboratory Last Values WBC 5.6 Th/cmm (4.8-10.8) 03/23/17 18:00 RBC 4.76 Mil/cmm (3.80-5.80) 03/23/17 18:00 Hgb 14.6 gm/dL (12-16) 03/23/17 18:00 Hct 43.0 % (41.0-60) 03/23/17 18:00 MCV 90.4 fl (80-99) 03/23/17 18:00 MCH 30.7 pg (27.0-31.0) 03/23/17 18:00 MCHC Differential 33.9 pg (28.0-36.0) 03/23/17 18:00 RDW 12.7 % (11.5-20.0) 03/23/17 18:00 Plt Count 162 Th/cmm (150-400) 03/23/17 18:00 MPV 8.4 fl 03/23/17 18:00 Neutrophils % 73.7 % (40.0-80.0) 03/23/17 18:00 Lymphocytes % 17.4 % (20.0-50.0) L 03/23/17 18:00 Monocytes % 6.8 % (2.0-10.0) 03/23/17 18:00 Eosinophils % 1.8 % (0.0-5.0) 03/23/17 18:00 Basophils % 0.3 % (0.0-2.0) 03/23/17 18:00 Sodium 135 mEq/L (136-145) L 03/23/17 18:00 Potassium 3.9 mEq/L (3.5-5.1) 03/23/17 18:00 Chloride 104 mEq/L (98-107) 03/23/17 18:00 Carbon Dioxide 25.7 mEq/L (21.0-31.0) 03/23/17 18:00 Anion Gap 9.2 (7.0-16.0) 03/23/17 18:00 BUN 22 mg/dL (7-25) 03/23/17 18:00 Creatinine 0.9 mg/dL (0.7-1.3) 03/23/17 18:00 Est GFR ( Amer) > 60.0 ml/min (>90) 03/23/17 18:00 Est GFR (Non-Af Amer) > 60.0 ml/min 03/23/17 18:00 BUN/Creatinine Ratio 24.4 03/23/17 18:00 Glucose 102 mg/dL (70-105) 03/23/17 18:00 POC Glucose 99 MG/DL (70 - 105) 03/26/17 06:20 Calcium 9.3 mg/dL (8.6-10.3) 03/23/17 18:00 Magnesium 2.1 mg/dL (1.9-2.7) 03/23/17 18:00 Total Bilirubin 0.8 mg/dL (0.3-1.0) 03/23/17 18:00 AST 13 U/L (13-39) 03/23/17 18:00 ALT 5 U/L (7-52) L 03/23/17 18:00 Alkaline Phosphatase 65 U/L (34-104) 03/23/17 18:00 Total Protein 6.6 gm/dL (6.0-8.3) 03/23/17 18:00 Albumin 4.1 gm/dL (4.2-5.5) L 03/23/17 18:00 Globulin 2.5 gm/dL 03/23/17 18:00 Albumin/Globulin Ratio 1.6 (1.0-1.8) 03/23/17 18:00 Urine Source CLEAN C 03/23/17 18:20 Urine Color YELLOW 03/23/17 18:20 Urine Clarity CLEAR (CLEAR) 03/23/17 18:20 Urine pH 5.5 (4.6 - 8.0) 03/23/17 18:20 Ur Specific [place] >= 1.030 (1.005-1.030) 03/23/17 18:20 Urine Protein NEGATIVE mg/dL (NEGATIVE) 03/23/17 18:20 Urine Glucose (UA) NEGATIVE mg/dL (NEGATIVE) 03/23/17 18:20 Urine Ketones NEGATIVE mg/dL (NEGATIVE) 03/23/17 18:20 Urine Blood TRACE (NEGATIVE) 03/23/17 18:20 Urine Nitrate NEGATIVE (NEGATIVE) 03/23/17 18:20 Urine Bilirubin NEGATIVE (NEGATIVE) 03/23/17 18:20 Urine Urobilinogen 1.0 E.U./dL (0.2 - 1.0) 03/23/17 18:20 Ur Leukocyte Esterase NEGATIVE (NEGATIVE) 03/23/17 18:20 Urine RBC 2-5 /hpf (0-5) H 03/23/17 18:20 Urine WBC 0-2 /hpf (0-5) 03/23/17 18:20 Ur Epithelial Cells FEW /lpf (FEW) 03/23/17 18:20 Urine Bacteria OCCASIONAL /hpf (NONE SEEN) 03/23/17 18:20 - Physical Exam Vitals and I&O: Vital Signs Temp 98.2 F 03/26/17 16:35 Pulse 69 03/26/17 16:35 Resp 18 03/26/17 16:35 BP 120/78 03/26/17 16:35 Pulse Ox 98 03/26/17 16:35 Intake & Output 03/25/17 03/26/17 03/26/17 18:59 06:59 18:59 Intake Total 900 480 Balance 900 480 Intake: Oral 900 480 Other: # Voids 3 2 # Bowel Movements 1 Active Medications: Current Medications Acetaminophen (Tylenol) 650 mg PO Q4HR PRN PRN Reason: Pain Stop: 05/22/17 22:48 Al Hydrox/Mg Hydrox/Simethicone (Maalox) 30 ml PO Q6H PRN PRN Reason: Dyspepsia Stop: 05/23/17 01:14 Aripiprazole (Abilify) 2.5 mg PO DAILY [facility] PRN Reason: Protocol Stop: 05/26/17 08:59 Cholecalciferol (Vitamin D3) 3,000 iu PO DAILY [facility] Stop: 05/23/17 08:59 Last Admin: 03/26/17 08:47 Dose: 3,000 iu Docusate Sodium (Colace) 100 mg PO BID [facility] Stop: 05/23/17 08:59 Last Admin: 03/26/17 09:25 Dose: Not Given Donepezil HCl (Aricept) 10 mg PO HS [facility] Stop: 05/23/17 20:59 Last Admin: 03/25/17 20:55 Dose: 10 mg Escitalopram Oxalate (Lexapro) 20 mg PO DAILY [facility] PRN Reason: Protocol Stop: 05/23/17 08:59 Last Admin: 03/26/17 08:47 Dose: 20 mg Lorazepam (Ativan) 0.5 mg PO Q6H PRN; Protocol PRN Reason: Anxiety/Agitation Stop: 05/23/17 01:14 Magnesium Hydroxide (Milk Of Magnesia) 30 ml PO DAILY PRN PRN Reason: Constipation Stop: 05/22/17 22:48 Memantine (Namenda) 10 mg PO BID [facility] Stop: 05/23/17 08:59 Last Admin: 03/26/17 08:47 Dose: 10 mg Thiamine HCl (Vitamin B1) 100 mg PO DAILY [facility] Stop: 05/23/17 08:59 Last Admin: 03/26/17 08:48 Dose: 100 mg Timolol Maleate (Timoptic 0.5% Ophth Soln) 1 drop EACH EYE BID [facility] Stop: 05/23/17 08:59 Last Admin: 03/26/17 08:47 Dose: 1 drop Zolpidem Tartrate (Ambien) 5 mg PO HS PRN PRN Reason: Insomnia Stop: 05/23/17 01:14 General: demented HEENT: NC/AT, PERRLA, EOMI, anicteric sclerae, throat clear Neck: Supple, No JVD, No thyromegaly, +2 carotid pulse wo bruit, No LAD Lungs: CTAB Cardiovascular: RRR, Normal S1, Normal S2, without murmur Abdomen: soft, non-tender, non-distended Extremities: clear Neurological: no change Internal Medicine Assmt/Plan - Assessment Assessment: 1.DM. 2.TBI. 3.ANEMIA. 4.DEMENTIA. - Plan Plan: CONTINUE ON CURRENT MEDICATION AND DIET.
--- NOTE | 2017-03-26 21:49 | Progress Notes ---
DATE: 03/26/2017 The patient has been isolating himself. He is sleeping well. He is eating well. He tends to smile when I approach him. He is minimizing that he wants to harm himself, not the way he presented the first day when he was admitted here. He was very angry, irritable, easily agitated. He is compliant with the medication with no side effects, no sedation, no nausea, and no extrapyramidal symptoms. Because of the history of the severe depression, I will be initiating Abilify on him. As the patient is at high suicide risk especially with his son killing himself and that is something that bother him a lot. We will continue to work with the patient in group therapy, milieu therapy, adjust the medication as needed. JOB# [id number]
[2017-03-27] MEDS: Multivitamin w/ Minerals Tab PO SCH (09:00)
--- NOTE | 2017-03-27 19:47 | Internal Medicine Prog Note ---
Internal Medicine Subjective - Subjective Service Date: 03/27/17 Patient seen and examined:: with staff Patient is:: awake, verbal, in bed, talking, confused Per staff patient has:: no adverse event Internal Medicine Objective - Results Result Diagrams: 03/23/17 18:00 03/23/17 18:00 Recent Labs: Laboratory Last Values WBC 5.6 Th/cmm (4.8-10.8) 03/23/17 18:00 RBC 4.76 Mil/cmm (3.80-5.80) 03/23/17 18:00 Hgb 14.6 gm/dL (12-16) 03/23/17 18:00 Hct 43.0 % (41.0-60) 03/23/17 18:00 MCV 90.4 fl (80-99) 03/23/17 18:00 MCH 30.7 pg (27.0-31.0) 03/23/17 18:00 MCHC Differential 33.9 pg (28.0-36.0) 03/23/17 18:00 RDW 12.7 % (11.5-20.0) 03/23/17 18:00 Plt Count 162 Th/cmm (150-400) 03/23/17 18:00 MPV 8.4 fl 03/23/17 18:00 Neutrophils % 73.7 % (40.0-80.0) 03/23/17 18:00 Lymphocytes % 17.4 % (20.0-50.0) L 03/23/17 18:00 Monocytes % 6.8 % (2.0-10.0) 03/23/17 18:00 Eosinophils % 1.8 % (0.0-5.0) 03/23/17 18:00 Basophils % 0.3 % (0.0-2.0) 03/23/17 18:00 Sodium 135 mEq/L (136-145) L 03/23/17 18:00 Potassium 3.9 mEq/L (3.5-5.1) 03/23/17 18:00 Chloride 104 mEq/L (98-107) 03/23/17 18:00 Carbon Dioxide 25.7 mEq/L (21.0-31.0) 03/23/17 18:00 Anion Gap 9.2 (7.0-16.0) 03/23/17 18:00 BUN 22 mg/dL (7-25) 03/23/17 18:00 Creatinine 0.9 mg/dL (0.7-1.3) 03/23/17 18:00 Est GFR ( Amer) > 60.0 ml/min (>90) 03/23/17 18:00 Est GFR (Non-Af Amer) > 60.0 ml/min 03/23/17 18:00 BUN/Creatinine Ratio 24.4 03/23/17 18:00 Glucose 102 mg/dL (70-105) 03/23/17 18:00 POC Glucose 99 MG/DL (70 - 105) 03/26/17 06:20 Calcium 9.3 mg/dL (8.6-10.3) 03/23/17 18:00 Magnesium 2.1 mg/dL (1.9-2.7) 03/23/17 18:00 Total Bilirubin 0.8 mg/dL (0.3-1.0) 03/23/17 18:00 AST 13 U/L (13-39) 03/23/17 18:00 ALT 5 U/L (7-52) L 03/23/17 18:00 Alkaline Phosphatase 65 U/L (34-104) 03/23/17 18:00 Total Protein 6.6 gm/dL (6.0-8.3) 03/23/17 18:00 Albumin 4.1 gm/dL (4.2-5.5) L 03/23/17 18:00 Globulin 2.5 gm/dL 03/23/17 18:00 Albumin/Globulin Ratio 1.6 (1.0-1.8) 03/23/17 18:00 Urine Source CLEAN C 03/23/17 18:20 Urine Color YELLOW 03/23/17 18:20 Urine Clarity CLEAR (CLEAR) 03/23/17 18:20 Urine pH 5.5 (4.6 - 8.0) 03/23/17 18:20 Ur Specific [place] >= 1.030 (1.005-1.030) 03/23/17 18:20 Urine Protein NEGATIVE mg/dL (NEGATIVE) 03/23/17 18:20 Urine Glucose (UA) NEGATIVE mg/dL (NEGATIVE) 03/23/17 18:20 Urine Ketones NEGATIVE mg/dL (NEGATIVE) 03/23/17 18:20 Urine Blood TRACE (NEGATIVE) 03/23/17 18:20 Urine Nitrate NEGATIVE (NEGATIVE) 03/23/17 18:20 Urine Bilirubin NEGATIVE (NEGATIVE) 03/23/17 18:20 Urine Urobilinogen 1.0 E.U./dL (0.2 - 1.0) 03/23/17 18:20 Ur Leukocyte Esterase NEGATIVE (NEGATIVE) 03/23/17 18:20 Urine RBC 2-5 /hpf (0-5) H 03/23/17 18:20 Urine WBC 0-2 /hpf (0-5) 03/23/17 18:20 Ur Epithelial Cells FEW /lpf (FEW) 03/23/17 18:20 Urine Bacteria OCCASIONAL /hpf (NONE SEEN) 03/23/17 18:20 - Physical Exam Vitals and I&O: Vital Signs Temp 97.4 F 03/27/17 14:00 Pulse 69 03/27/17 14:00 Resp 20 03/27/17 14:00 BP 122/67 03/27/17 14:00 Pulse Ox 97 03/27/17 14:00 Intake & Output 03/27/17 03/27/17 03/28/17 06:59 18:59 06:59 Intake Total 480 700 Balance 480 700 Intake: Oral 480 700 Other: # Voids 3 3 # Bowel Movements 0 1 Active Medications: Current Medications Acetaminophen (Tylenol) 650 mg PO Q4HR PRN PRN Reason: Pain Stop: 05/22/17 22:48 Al Hydrox/Mg Hydrox/Simethicone (Maalox) 30 ml PO Q6H PRN PRN Reason: Dyspepsia Stop: 05/23/17 01:14 Aripiprazole (Abilify) 2.5 mg PO DAILY [facility] PRN Reason: Protocol Stop: 05/26/17 08:59 Last Admin: 03/27/17 09:00 Dose: 2.5 mg Cholecalciferol (Vitamin D3) 3,000 iu PO DAILY [facility] Stop: 05/23/17 08:59 Last Admin: 03/27/17 09:00 Dose: 3,000 iu Docusate Sodium (Colace) 100 mg PO BID [facility] Stop: 05/23/17 08:59 Last Admin: 03/27/17 17:51 Dose: 100 mg Donepezil HCl (Aricept) 10 mg PO HS [facility] Stop: 05/23/17 20:59 Last Admin: 03/26/17 20:47 Dose: 10 mg Escitalopram Oxalate (Lexapro) 20 mg PO DAILY [facility] Stop: 05/27/17 08:59 Lorazepam (Ativan) 0.5 mg PO Q6H PRN PRN Reason: Anxiety/Agitation Stop: 05/26/17 10:42 Magnesium Hydroxide (Milk Of Magnesia) 30 ml PO DAILY PRN PRN Reason: Constipation Stop: 05/22/17 22:48 Memantine (Namenda) 10 mg PO BID [facility] Stop: 05/23/17 08:59 Last Admin: 03/27/17 17:51 Dose: 10 mg Thiamine HCl (Vitamin B1) 100 mg PO DAILY [facility] Stop: 05/23/17 08:59 Last Admin: 03/27/17 09:00 Dose: 100 mg Timolol Maleate (Timoptic 0.5% Ophth Soln) 1 drop EACH EYE BID [facility] Stop: 05/23/17 08:59 Last Admin: 03/27/17 17:51 Dose: 1 drop Zolpidem Tartrate (Ambien) 5 mg PO HS PRN PRN Reason: Insomnia Stop: 05/23/17 01:14 Last Admin: 03/26/17 20:47 Dose: 5 mg General: demented HEENT: NC/AT, PERRLA, EOMI, anicteric sclerae, throat clear Neck: Supple, No JVD, No thyromegaly, +2 carotid pulse wo bruit, No LAD Lungs: CTAB Cardiovascular: RRR, Normal S1, Normal S2, without murmur Abdomen: soft, non-tender, non-distended Extremities: clear Neurological: no change Internal Medicine Assmt/Plan - Assessment Assessment: 1.DM. 2.TBI. 3.ANEMIA. 4.DEMENTIA. - Plan Plan: CONTINUE ON CURRENT MEDICATION AND DIET.
--- NOTE | 2017-03-27 22:43 | Progress Notes ---
DATE: 03/27/2017 Case was discussed with staff of the patient, reviewed records. The patient tolerated the Abilify with no side effects. He has been, however, isolating himself. He is minimizing any current intent to harm self or anybody, sleeping better, eating better. No side effects of the medication, no sedation, no nausea, no extrapyramidal symptoms. We will continue outpatient group therapy, milieu therapy, adjust medication as needed. JOB# [id number]
[2017-03-28] MEDS: Multivitamin w/ Minerals Tab PO SCH (09:08)
--- NOTE | 2017-03-28 10:37 | Progress Notes ---
DATE: 03/28/2017 Case was discussed with staff of patient, reviewed records. The patient continues to be depressed, isolating himself. Continues to have poor insight. Unable to make safe plan for self-care. He is sleeping well, eating well. No side effects from the medication, no sedation, no nausea, no extrapyramidal symptoms. He tolerated the Abilify. We continue to work the patient in group therapy, milieu therapy and adjust medications as needed. JOB# [id number]
--- NOTE | 2017-03-28 19:50 | Internal Medicine Prog Note ---
Internal Medicine Subjective - Subjective Service Date: 03/28/17 Patient seen and examined:: without staff Patient is:: awake, verbal, in bed, talking, confused Per staff patient has:: no adverse event Internal Medicine Objective - Results Result Diagrams: 03/23/17 18:00 03/23/17 18:00 Recent Labs: Laboratory Last Values WBC 5.6 Th/cmm (4.8-10.8) 03/23/17 18:00 RBC 4.76 Mil/cmm (3.80-5.80) 03/23/17 18:00 Hgb 14.6 gm/dL (12-16) 03/23/17 18:00 Hct 43.0 % (41.0-60) 03/23/17 18:00 MCV 90.4 fl (80-99) 03/23/17 18:00 MCH 30.7 pg (27.0-31.0) 03/23/17 18:00 MCHC Differential 33.9 pg (28.0-36.0) 03/23/17 18:00 RDW 12.7 % (11.5-20.0) 03/23/17 18:00 Plt Count 162 Th/cmm (150-400) 03/23/17 18:00 MPV 8.4 fl 03/23/17 18:00 Neutrophils % 73.7 % (40.0-80.0) 03/23/17 18:00 Lymphocytes % 17.4 % (20.0-50.0) L 03/23/17 18:00 Monocytes % 6.8 % (2.0-10.0) 03/23/17 18:00 Eosinophils % 1.8 % (0.0-5.0) 03/23/17 18:00 Basophils % 0.3 % (0.0-2.0) 03/23/17 18:00 Sodium 135 mEq/L (136-145) L 03/23/17 18:00 Potassium 3.9 mEq/L (3.5-5.1) 03/23/17 18:00 Chloride 104 mEq/L (98-107) 03/23/17 18:00 Carbon Dioxide 25.7 mEq/L (21.0-31.0) 03/23/17 18:00 Anion Gap 9.2 (7.0-16.0) 03/23/17 18:00 BUN 22 mg/dL (7-25) 03/23/17 18:00 Creatinine 0.9 mg/dL (0.7-1.3) 03/23/17 18:00 Est GFR ( Amer) > 60.0 ml/min (>90) 03/23/17 18:00 Est GFR (Non-Af Amer) > 60.0 ml/min 03/23/17 18:00 BUN/Creatinine Ratio 24.4 03/23/17 18:00 Glucose 102 mg/dL (70-105) 03/23/17 18:00 POC Glucose 96 MG/DL (70 - 105) 03/28/17 06:39 Calcium 9.3 mg/dL (8.6-10.3) 03/23/17 18:00 Magnesium 2.1 mg/dL (1.9-2.7) 03/23/17 18:00 Total Bilirubin 0.8 mg/dL (0.3-1.0) 03/23/17 18:00 AST 13 U/L (13-39) 03/23/17 18:00 ALT 5 U/L (7-52) L 03/23/17 18:00 Alkaline Phosphatase 65 U/L (34-104) 03/23/17 18:00 Total Protein 6.6 gm/dL (6.0-8.3) 03/23/17 18:00 Albumin 4.1 gm/dL (4.2-5.5) L 03/23/17 18:00 Globulin 2.5 gm/dL 03/23/17 18:00 Albumin/Globulin Ratio 1.6 (1.0-1.8) 03/23/17 18:00 Urine Source CLEAN C 03/23/17 18:20 Urine Color YELLOW 03/23/17 18:20 Urine Clarity CLEAR (CLEAR) 03/23/17 18:20 Urine pH 5.5 (4.6 - 8.0) 03/23/17 18:20 Ur Specific [place] >= 1.030 (1.005-1.030) 03/23/17 18:20 Urine Protein NEGATIVE mg/dL (NEGATIVE) 03/23/17 18:20 Urine Glucose (UA) NEGATIVE mg/dL (NEGATIVE) 03/23/17 18:20 Urine Ketones NEGATIVE mg/dL (NEGATIVE) 03/23/17 18:20 Urine Blood TRACE (NEGATIVE) 03/23/17 18:20 Urine Nitrate NEGATIVE (NEGATIVE) 03/23/17 18:20 Urine Bilirubin NEGATIVE (NEGATIVE) 03/23/17 18:20 Urine Urobilinogen 1.0 E.U./dL (0.2 - 1.0) 03/23/17 18:20 Ur Leukocyte Esterase NEGATIVE (NEGATIVE) 03/23/17 18:20 Urine RBC 2-5 /hpf (0-5) H 03/23/17 18:20 Urine WBC 0-2 /hpf (0-5) 03/23/17 18:20 Ur Epithelial Cells FEW /lpf (FEW) 03/23/17 18:20 Urine Bacteria OCCASIONAL /hpf (NONE SEEN) 03/23/17 18:20 - Physical Exam Vitals and I&O: Vital Signs Temp 98.2 F 03/28/17 14:00 Pulse 79 03/28/17 14:00 Resp 20 03/28/17 14:00 BP 127/80 03/28/17 14:00 Pulse Ox 97 03/28/17 14:00 Intake & Output 03/28/17 03/28/17 03/29/17 06:59 18:59 06:59 Intake Total 180 800 Balance 180 800 Intake: Oral 180 800 Other: # Voids 1 3 # Bowel Movements 0 0 Stool Characteristics Soft Formed Active Medications: Current Medications Acetaminophen (Tylenol) 650 mg PO Q4HR PRN PRN Reason: Pain Stop: 05/22/17 22:48 Al Hydrox/Mg Hydrox/Simethicone (Maalox) 30 ml PO Q6H PRN PRN Reason: Dyspepsia Stop: 05/23/17 01:14 Aripiprazole (Abilify) 2.5 mg PO DAILY [facility] PRN Reason: Protocol Stop: 05/26/17 08:59 Last Admin: 03/28/17 09:08 Dose: 2.5 mg Cholecalciferol (Vitamin D3) 3,000 iu PO DAILY [facility] Stop: 05/23/17 08:59 Last Admin: 03/28/17 09:07 Dose: 3,000 iu Docusate Sodium (Colace) 100 mg PO BID [facility] Stop: 05/23/17 08:59 Last Admin: 03/28/17 16:27 Dose: 100 mg Donepezil HCl (Aricept) 10 mg PO HS [facility] Stop: 05/23/17 20:59 Last Admin: 03/27/17 21:23 Dose: 10 mg Escitalopram Oxalate (Lexapro) 20 mg PO DAILY [facility] Stop: 05/27/17 08:59 Last Admin: 03/28/17 09:08 Dose: 20 mg Lorazepam (Ativan) 0.5 mg PO Q6H PRN PRN Reason: Anxiety/Agitation Stop: 05/26/17 10:42 Magnesium Hydroxide (Milk Of Magnesia) 30 ml PO DAILY [facility] PRN Reason: Constipation Stop: 05/22/17 22:48 Memantine (Namenda) 10 mg PO BID [facility] Stop: 05/23/17 08:59 Last Admin: 03/28/17 16:27 Dose: 10 mg Thiamine HCl (Vitamin B1) 100 mg PO DAILY [facility] Stop: 05/23/17 08:59 Last Admin: 03/28/17 09:08 Dose: 100 mg Timolol Maleate (Timoptic 0.5% Oph Soln) 1 drop EACH EYE BID [facility] Stop: 05/23/17 08:59 Last Admin: 03/28/17 16:27 Dose: 1 drop Zolpidem Tartrate (Ambien) 5 mg PO HS PRN PRN Reason: Insomnia Stop: 05/23/17 01:14 Last Admin: 03/27/17 21:23 Dose: 5 mg General: demented HEENT: NC/AT, PERRLA, EOMI, anicteric sclerae, throat clear Neck: Supple, No JVD, No thyromegaly, +2 carotid pulse wo bruit, No LAD Lungs: CTAB Cardiovascular: RRR, Normal S1, Normal S2, without murmur Abdomen: soft, non-tender, non-distended Extremities: clear Neurological: no change Internal Medicine Assmt/Plan - Assessment Assessment: 1.DM. 2.TBI. 3.ANEMIA. 4.DEMENTIA. - Plan Plan: CONTINUE ON CURRENT MEDICATION AND DIET. Nutritional Asmnt/Malnutr-PDOC - Dietary Evaluation Malnutrition Findings (Please click <Entered> for more info): Nutritional Asmnt/Malnutrition Start: 03/28/17 12: 36 Text: Status: Complete Freq: Document 03/28/17 12:36 REBECCA (Rec: 03/28/17 12:53 LCHENG [email or web address]) Nutritional Asmnt/Malnutrition Patient General Information Nutritional Screening Moderate Risk Diagnosis psychosis, agitation Pertinent Medical Hx/Surgical Hx DM, traumatic brain injury, dementia, anemia, glaucoma Subjective Information Pt seen lying on bed in his room. Spoke to nurse, pt did not eat breakfast this morning . Visited again during lunch time, pt was eating burgers brought by his brother. Per note, PO intake 100%. YUNIOR Sun reported pt POC 90-100 WNL, considering regular diet. Current Diet Order/ [facility] Pertinent Medications Vit D3, Vit B1 Pertinent Labs 03/23 Na 135L, ALT 5 L, Alb 4. 1L, Glu 102 POC 92-101 Nutritional Hx/Data Height 1.65 m Height (Calculated Centimeters) 165.1 Current Weight (lbs) 75.296 kg Weight (Calculated Kilograms) 75.3 Weight (Calculated Grams) 62422.3 [place] Body Weight 136 % [place] Body Weight 122 Body Mass Index (BMI) 27.6 Weight Status Overweight GI Symptoms GI Symptoms None Last BM 03/27 Difficult in: None Food Allergies No Usual diet at home not able to obtain Skin Integrity/Comment: intact Current %PO Fair (50-74%) Estimated Nutritional Goals BEE in Kcals: Using Current wt Calories/Kcals/Kg 25-30 Kcals Calculated 6600-6411 Protein: Using Current wt Protein g/k.8-1 Protein Calculated 60-75 Fluid: ml 0506-5694 Nutritional Problem No current Nutrition Prob Problem N/A Malnutrition Alert Protein-Calorie Malnutrition N/A Is there a minimum of two criteria No selected? Query Text:Check all the applicable criteria. A minimum of two criteria are recommended for diagnosis of either severe or non-severe malnutrition. Intervention/Recommendation Comments 1. Recommended regular diet d/ t pt has normal glucose level. YUNIOR Sun will notify when MD is here this afternoon. 2. monitor wt weekly, glucose, skin integrity 3. F/U as moderate risk in 3-5 days, 03/31-04/02 Expected Outcomes/Goals Expected Outcomes/Goals 1. PO intake continue to meet 100% of nutritional needs 2. wt stability, skin to remain intact, glucose WNL
[2017-03-29] MEDS: Multivitamin w/ Minerals Tab PO SCH (08:05)
--- NOTE | 2017-03-29 21:43 | Progress Notes ---
DATE: 03/29/2017 Case was discussed with staff of the patient, reviewed records. The patient has been isolating himself, continues to have poor insight, unable to make safe plan for self-care. He is minimizing any current intent to harm self or anybody. Denies any illicit hallucinations or paranoia. He is sleeping well, eating well. No side effects of the medication, no sedation, no nausea, no extrapyramidal symptoms and we will continue to work with the patient in group therapy, milieu therapy, adjust medication as needed. JOB# [id number]
--- NOTE | 2017-03-29 23:42 | Internal Medicine Prog Note ---
Internal Medicine Subjective - Subjective Service Date: 03/29/17 Patient seen and examined:: without staff Patient is:: awake, verbal, in bed, talking, confused Per staff patient has:: no adverse event Internal Medicine Objective - Results Result Diagrams: 03/23/17 18:00 03/23/17 18:00 Recent Labs: Laboratory Last Values WBC 5.6 Th/cmm (4.8-10.8) 03/23/17 18:00 RBC 4.76 Mil/cmm (3.80-5.80) 03/23/17 18:00 Hgb 14.6 gm/dL (12-16) 03/23/17 18:00 Hct 43.0 % (41.0-60) 03/23/17 18:00 MCV 90.4 fl (80-99) 03/23/17 18:00 MCH 30.7 pg (27.0-31.0) 03/23/17 18:00 MCHC Differential 33.9 pg (28.0-36.0) 03/23/17 18:00 RDW 12.7 % (11.5-20.0) 03/23/17 18:00 Plt Count 162 Th/cmm (150-400) 03/23/17 18:00 MPV 8.4 fl 03/23/17 18:00 Neutrophils % 73.7 % (40.0-80.0) 03/23/17 18:00 Lymphocytes % 17.4 % (20.0-50.0) L 03/23/17 18:00 Monocytes % 6.8 % (2.0-10.0) 03/23/17 18:00 Eosinophils % 1.8 % (0.0-5.0) 03/23/17 18:00 Basophils % 0.3 % (0.0-2.0) 03/23/17 18:00 Sodium 135 mEq/L (136-145) L 03/23/17 18:00 Potassium 3.9 mEq/L (3.5-5.1) 03/23/17 18:00 Chloride 104 mEq/L (98-107) 03/23/17 18:00 Carbon Dioxide 25.7 mEq/L (21.0-31.0) 03/23/17 18:00 Anion Gap 9.2 (7.0-16.0) 03/23/17 18:00 BUN 22 mg/dL (7-25) 03/23/17 18:00 Creatinine 0.9 mg/dL (0.7-1.3) 03/23/17 18:00 Est GFR ( Amer) > 60.0 ml/min (>90) 03/23/17 18:00 Est GFR (Non-Af Amer) > 60.0 ml/min 03/23/17 18:00 BUN/Creatinine Ratio 24.4 03/23/17 18:00 Glucose 102 mg/dL (70-105) 03/23/17 18:00 POC Glucose 108 MG/DL (70 - 105) H 03/28/17 21:07 Calcium 9.3 mg/dL (8.6-10.3) 03/23/17 18:00 Magnesium 2.1 mg/dL (1.9-2.7) 03/23/17 18:00 Total Bilirubin 0.8 mg/dL (0.3-1.0) 03/23/17 18:00 AST 13 U/L (13-39) 03/23/17 18:00 ALT 5 U/L (7-52) L 03/23/17 18:00 Alkaline Phosphatase 65 U/L (34-104) 03/23/17 18:00 Total Protein 6.6 gm/dL (6.0-8.3) 03/23/17 18:00 Albumin 4.1 gm/dL (4.2-5.5) L 03/23/17 18:00 Globulin 2.5 gm/dL 03/23/17 18:00 Albumin/Globulin Ratio 1.6 (1.0-1.8) 03/23/17 18:00 Urine Source CLEAN C 03/23/17 18:20 Urine Color YELLOW 03/23/17 18:20 Urine Clarity CLEAR (CLEAR) 03/23/17 18:20 Urine pH 5.5 (4.6 - 8.0) 03/23/17 18:20 Ur Specific [place] >= 1.030 (1.005-1.030) 03/23/17 18:20 Urine Protein NEGATIVE mg/dL (NEGATIVE) 03/23/17 18:20 Urine Glucose (UA) NEGATIVE mg/dL (NEGATIVE) 03/23/17 18:20 Urine Ketones NEGATIVE mg/dL (NEGATIVE) 03/23/17 18:20 Urine Blood TRACE (NEGATIVE) 03/23/17 18:20 Urine Nitrate NEGATIVE (NEGATIVE) 03/23/17 18:20 Urine Bilirubin NEGATIVE (NEGATIVE) 03/23/17 18:20 Urine Urobilinogen 1.0 E.U./dL (0.2 - 1.0) 03/23/17 18:20 Ur Leukocyte Esterase NEGATIVE (NEGATIVE) 03/23/17 18:20 Urine RBC 2-5 /hpf (0-5) H 03/23/17 18:20 Urine WBC 0-2 /hpf (0-5) 03/23/17 18:20 Ur Epithelial Cells FEW /lpf (FEW) 03/23/17 18:20 Urine Bacteria OCCASIONAL /hpf (NONE SEEN) 03/23/17 18:20 - Physical Exam Vitals and I&O: Vital Signs Temp 98.3 F 03/29/17 21:23 Pulse 83 03/29/17 21:23 Resp 19 03/29/17 21:23 BP 131/77 03/29/17 21:23 Pulse Ox 97 03/29/17 21:23 Intake & Output 03/29/17 03/29/17 03/30/17 06:59 18:59 06:59 Intake Total 120 1100 Balance 120 1100 Intake: Oral 120 1100 Other: # Voids 3 4 # Bowel Movements 1 Active Medications: Current Medications Acetaminophen (Tylenol) 650 mg PO Q4HR PRN PRN Reason: Pain Stop: 05/22/17 22:48 Al Hydrox/Mg Hydrox/Simethicone (Maalox) 30 ml PO Q6H PRN PRN Reason: Dyspepsia Stop: 05/23/17 01:14 Aripiprazole (Abilify) 2.5 mg PO DAILY [facility] PRN Reason: Protocol Stop: 05/26/17 08:59 Last Admin: 03/29/17 08:05 Dose: 2.5 mg Cholecalciferol (Vitamin D3) 3,000 iu PO DAILY [facility] Stop: 05/23/17 08:59 Last Admin: 03/29/17 08:05 Dose: 3,000 iu Docusate Sodium (Colace) 100 mg PO BID [facility] Stop: 05/23/17 08:59 Last Admin: 03/29/17 16:13 Dose: 100 mg Donepezil HCl (Aricept) 10 mg PO HS [facility] Stop: 05/23/17 20:59 Last Admin: 03/29/17 20:41 Dose: 10 mg Escitalopram Oxalate (Lexapro) 20 mg PO DAILY [facility] Stop: 05/27/17 08:59 Last Admin: 03/29/17 08:05 Dose: 20 mg Lorazepam (Ativan) 0.5 mg PO Q6H PRN PRN Reason: Anxiety/Agitation Stop: 05/26/17 10:42 Magnesium Hydroxide (Milk Of Magnesia) 30 ml PO DAILY [facility] PRN Reason: Constipation Stop: 05/22/17 22:48 Memantine (Namenda) 10 mg PO BID [facility] Stop: 05/23/17 08:59 Last Admin: 03/29/17 16:13 Dose: 10 mg Thiamine HCl (Vitamin B1) 100 mg PO DAILY [facility] Stop: 05/23/17 08:59 Last Admin: 03/29/17 08:04 Dose: 100 mg Timolol Maleate (Timoptic 0.5% Ophth Soln) 1 drop EACH EYE BID [facility] Stop: 05/23/17 08:59 Last Admin: 03/29/17 16:13 Dose: 1 drop Zolpidem Tartrate (Ambien) 5 mg PO HS PRN PRN Reason: Insomnia Stop: 05/23/17 01:14 Last Admin: 03/27/17 21:23 Dose: 5 mg General: demented HEENT: NC/AT, PERRLA, EOMI, anicteric sclerae, throat clear Neck: Supple, No JVD, No thyromegaly, +2 carotid pulse wo bruit, No LAD Lungs: CTAB Cardiovascular: RRR, Normal S1, Normal S2, without murmur Abdomen: soft, non-tender, non-distended Extremities: clear Neurological: no change Internal Medicine Assmt/Plan - Assessment Assessment: 1.DM. 2.TBI. 3.ANEMIA. 4.DEMENTIA. - Plan Plan: CONTINUE ON CURRENT MEDICATION AND DIET. Nutritional Asmnt/Malnutr-PDOC - Dietary Evaluation Malnutrition Findings (Please click <Entered> for more info): Nutritional Asmnt/Malnutrition Start: 03/28/17 12: 36 Text: Status: Complete Freq: Document 03/28/17 12:36 LCHENG (Rec: 03/28/17 12:53 LCHENG [email or web address]) Nutritional Asmnt/Malnutrition Patient General Information Nutritional Screening Moderate Risk Diagnosis psychosis, agitation Pertinent Medical Hx/Surgical Hx DM, traumatic brain injury, dementia, anemia, glaucoma Subjective Information Pt seen lying on bed in his room. Spoke to nurse, pt did not eat breakfast this morning . Visited again during lunch time, pt was eating burgers brought by his brother. Per note, PO intake 100%. YUNIOR Sun reported pt POC 90-100 WNL, considering regular diet. Current Diet Order/ Nutrition Support [facility] with HS snack Pertinent Medications Vit D3, Vit B1 Pertinent Labs 03/23 Na 135L, ALT 5 L, Alb 4. 1L, Glu 102 POC 92-101 Nutritional Hx/Data Height 1.65 m Height (Calculated Centimeters) 165.1 Current Weight (lbs) 75.296 kg Weight (Calculated Kilograms) 75.3 Weight (Calculated Grams) 84038.3 [place] Body Weight 136 % [place] Body Weight 122 Body Mass Index (BMI) 27.6 Weight Status Overweight GI Symptoms GI Symptoms None Last BM 03/27 Difficult in: None Food Allergies No Usual diet at home not able to obtain Skin Integrity/Comment: intact Current %PO Fair (50-74%) Estimated Nutritional Goals BEE in Kcals: Using Current wt Calories/Kcals/Kg 25-30 Kcals Calculated 1817-3586 Protein: Using Current wt Protein g/k.8-1 Protein Calculated 60-75 Fluid: ml [id number] Nutritional Problem No current Nutrition Prob Problem N/A Malnutrition Alert Protein-Calorie Malnutrition N/A Is there a minimum of two criteria No selected? Query Text:Check all the applicable criteria. A minimum of two criteria are recommended for diagnosis of either severe or non-severe malnutrition. Intervention/Recommendation Comments 1. Recommended regular diet d/ t pt has normal glucose level. YUN[facility] Sun will notify when MD is here this afternoon. 2. monitor wt weekly, glucose, skin integrity 3. F/U as moderate risk in 3-5 days, 03/31-04/02 Expected Outcomes/Goals Expected Outcomes/Goals 1. PO intake continue to meet 100% of nutritional needs 2. wt stability, skin to remain intact, glucose WNL
[2017-03-30] MEDS: Multivitamin w/ Minerals Tab PO SCH (08:18)
--- NOTE | 2017-03-30 20:46 | Internal Medicine Prog Note ---
Internal Medicine Subjective - Subjective Service Date: 03/30/17 Patient seen and examined:: with staff Patient is:: awake, verbal, in bed, talking, confused Per staff patient has:: no adverse event Internal Medicine Objective - Results Result Diagrams: 03/23/17 18:00 03/23/17 18:00 Recent Labs: Laboratory Last Values WBC 5.6 Th/cmm (4.8-10.8) 03/23/17 18:00 RBC 4.76 Mil/cmm (3.80-5.80) 03/23/17 18:00 Hgb 14.6 gm/dL (12-16) 03/23/17 18:00 Hct 43.0 % (41.0-60) 03/23/17 18:00 MCV 90.4 fl (80-99) 03/23/17 18:00 MCH 30.7 pg (27.0-31.0) 03/23/17 18:00 MCHC Differential 33.9 pg (28.0-36.0) 03/23/17 18:00 RDW 12.7 % (11.5-20.0) 03/23/17 18:00 Plt Count 162 Th/cmm (150-400) 03/23/17 18:00 MPV 8.4 fl 03/23/17 18:00 Neutrophils % 73.7 % (40.0-80.0) 03/23/17 18:00 Lymphocytes % 17.4 % (20.0-50.0) L 03/23/17 18:00 Monocytes % 6.8 % (2.0-10.0) 03/23/17 18:00 Eosinophils % 1.8 % (0.0-5.0) 03/23/17 18:00 Basophils % 0.3 % (0.0-2.0) 03/23/17 18:00 Sodium 135 mEq/L (136-145) L 03/23/17 18:00 Potassium 3.9 mEq/L (3.5-5.1) 03/23/17 18:00 Chloride 104 mEq/L (98-107) 03/23/17 18:00 Carbon Dioxide 25.7 mEq/L (21.0-31.0) 03/23/17 18:00 Anion Gap 9.2 (7.0-16.0) 03/23/17 18:00 BUN 22 mg/dL (7-25) 03/23/17 18:00 Creatinine 0.9 mg/dL (0.7-1.3) 03/23/17 18:00 Est GFR ( Amer) > 60.0 ml/min (>90) 03/23/17 18:00 Est GFR (Non-Af Amer) > 60.0 ml/min 03/23/17 18:00 BUN/Creatinine Ratio 24.4 03/23/17 18:00 Glucose 102 mg/dL (70-105) 03/23/17 18:00 POC Glucose 99 MG/DL (70 - 105) 03/30/17 16:54 Calcium 9.3 mg/dL (8.6-10.3) 03/23/17 18:00 Magnesium 2.1 mg/dL (1.9-2.7) 03/23/17 18:00 Total Bilirubin 0.8 mg/dL (0.3-1.0) 03/23/17 18:00 AST 13 U/L (13-39) 03/23/17 18:00 ALT 5 U/L (7-52) L 03/23/17 18:00 Alkaline Phosphatase 65 U/L (34-104) 03/23/17 18:00 Total Protein 6.6 gm/dL (6.0-8.3) 03/23/17 18:00 Albumin 4.1 gm/dL (4.2-5.5) L 03/23/17 18:00 Globulin 2.5 gm/dL 03/23/17 18:00 Albumin/Globulin Ratio 1.6 (1.0-1.8) 03/23/17 18:00 Urine Source CLEAN C 03/23/17 18:20 Urine Color YELLOW 03/23/17 18:20 Urine Clarity CLEAR (CLEAR) 03/23/17 18:20 Urine pH 5.5 (4.6 - 8.0) 03/23/17 18:20 Ur Specific [place] >= 1.030 (1.005-1.030) 03/23/17 18:20 Urine Protein NEGATIVE mg/dL (NEGATIVE) 03/23/17 18:20 Urine Glucose (UA) NEGATIVE mg/dL (NEGATIVE) 03/23/17 18:20 Urine Ketones NEGATIVE mg/dL (NEGATIVE) 03/23/17 18:20 Urine Blood TRACE (NEGATIVE) 03/23/17 18:20 Urine Nitrate NEGATIVE (NEGATIVE) 03/23/17 18:20 Urine Bilirubin NEGATIVE (NEGATIVE) 03/23/17 18:20 Urine Urobilinogen 1.0 E.U./dL (0.2 - 1.0) 03/23/17 18:20 Ur Leukocyte Esterase NEGATIVE (NEGATIVE) 03/23/17 18:20 Urine RBC 2-5 /hpf (0-5) H 03/23/17 18:20 Urine WBC 0-2 /hpf (0-5) 03/23/17 18:20 Ur Epithelial Cells FEW /lpf (FEW) 03/23/17 18:20 Urine Bacteria OCCASIONAL /hpf (NONE SEEN) 03/23/17 18:20 - Physical Exam Vitals and I&O: Vital Signs Temp 97.6 F 03/30/17 15:34 Pulse 66 03/30/17 15:34 Resp 18 03/30/17 15:34 BP 120/75 03/30/17 15:34 Pulse Ox 97 03/30/17 15:34 Intake & Output 03/30/17 03/30/17 03/31/17 06:59 18:59 06:59 Intake Total 1200 Balance 1200 Intake: Oral 1200 Other: # Voids 5 # Bowel Movements 1 Active Medications: Current Medications Acetaminophen (Tylenol) 650 mg PO Q4HR PRN PRN Reason: Pain Stop: 05/22/17 22:48 Al Hydrox/Mg Hydrox/Simethicone (Maalox) 30 ml PO Q6H PRN PRN Reason: Dyspepsia Stop: 05/23/17 01:14 Aripiprazole (Abilify) 5 mg PO DAILY [facility] PRN Reason: Protocol Stop: 05/29/17 10:58 Cholecalciferol (Vitamin D3) 3,000 iu PO DAILY [facility] Stop: 05/23/17 08:59 Last Admin: 03/30/17 08:19 Dose: 3,000 iu Docusate Sodium (Colace) 100 mg PO BID [facility] Stop: 05/23/17 08:59 Last Admin: 03/30/17 16:22 Dose: 100 mg Donepezil HCl (Aricept) 10 mg PO HS [facility] Stop: 05/23/17 20:59 Last Admin: 03/29/17 20:41 Dose: 10 mg Escitalopram Oxalate (Lexapro) 20 mg PO DAILY [facility] Stop: 05/27/17 08:59 Last Admin: 03/30/17 08:18 Dose: 20 mg Lorazepam (Ativan) 0.5 mg PO Q6H PRN PRN Reason: Anxiety/Agitation Stop: 05/26/17 10:42 Magnesium Hydroxide (Milk Of Magnesia) 30 ml PO DAILY PRN PRN Reason: Constipation Stop: 05/22/17 22:48 Memantine (Namenda) 10 mg PO BID [facility] Stop: 05/23/17 08:59 Last Admin: 03/30/17 16:22 Dose: 10 mg Thiamine HCl (Vitamin B1) 100 mg PO DAILY [facility] Stop: 05/23/17 08:59 Last Admin: 03/30/17 08:20 Dose: 100 mg Timolol Maleate (Timoptic 0.5% Ophth Soln) 1 drop EACH EYE BID [facility] Stop: 05/23/17 08:59 Last Admin: 03/30/17 16:24 Dose: 1 drop Zolpidem Tartrate (Ambien) 5 mg PO HS PRN PRN Reason: Insomnia Stop: 05/23/17 01:14 Last Admin: 03/27/17 21:23 Dose: 5 mg General: demented HEENT: NC/AT, PERRLA, EOMI, anicteric sclerae, throat clear Neck: Supple, No JVD, No thyromegaly, +2 carotid pulse wo bruit, No LAD Lungs: CTAB Cardiovascular: RRR, Normal S1, Normal S2, without murmur Abdomen: soft, non-tender, non-distended Extremities: clear Neurological: no change Internal Medicine Assmt/Plan - Assessment Assessment: 1.DM. 2.TBI. 3.ANEMIA. 4.DEMENTIA. - Plan Plan: CONTINUE ON CURRENT MEDICATION AND DIET. Nutritional Asmnt/Malnutr-PDOC - Dietary Evaluation Malnutrition Findings (Please click <Entered> for more info): Nutritional Asmnt/Malnutrition Start: 03/28/17 12: 36 Text: Status: Complete Freq: Document 03/28/17 12:36 MARLEN (Rec: 03/28/17 12:53 MARLEN [email or web address]) Nutritional Asmnt/Malnutrition Patient General Information Nutritional Screening Moderate Risk Diagnosis psychosis, agitation Pertinent Medical Hx/Surgical Hx DM, traumatic brain injury, dementia, anemia, glaucoma Subjective Information Pt seen lying on bed in his room. Spoke to nurse, pt did not eat breakfast this morning . Visited again during lunch time, pt was eating burgers brought by his brother. Per note, PO intake 100%. YUNIOR Sun reported pt POC 90-100 WNL, considering regular diet. Current Diet Order/ Nutrition Support CCHO with HS snack Pertinent Medications Vit D3, Vit B1 Pertinent Labs 03/23 Na 135L, ALT 5 L, Alb 4. 1L, Glu 102 POC 92-101 Nutritional Hx/Data Height 1.65 m Height (Calculated Centimeters) 165.1 Current Weight (lbs) 75.296 kg Weight (Calculated Kilograms) 75.3 Weight (Calculated Grams) 21021.3 [place] Body Weight 136 % [place] Body Weight 122 Body Mass Index (BMI) 27.6 Weight Status Overweight GI Symptoms GI Symptoms None Last BM 03/27 Difficult in: None Food Allergies No Usual diet at home not able to obtain Skin Integrity/Comment: intact Current %PO Fair (50-74%) Estimated Nutritional Goals BEE in Kcals: Using Current wt Calories/Kcals/Kg 25-30 Kcals Calculated 8542-0565 Protein: Using Current wt Protein g/k.8-1 Protein Calculated 60-75 Fluid: ml 0071-9514 Nutritional Problem No current Nutrition Prob Problem N/A Malnutrition Alert Protein-Calorie Malnutrition N/A Is there a minimum of two criteria No selected? Query Text:Check all the applicable criteria. A minimum of two criteria are recommended for diagnosis of either severe or non-severe malnutrition. Intervention/Recommendation Comments 1. Recommended regular diet d/ t pt has normal glucose level. YUNIOR Sun will notify when MD is here this afternoon. 2. monitor wt weekly, glucose, skin integrity 3. F/U as moderate risk in 3-5 days, 03/31-04/02 Expected Outcomes/Goals Expected Outcomes/Goals 1. PO intake continue to meet 100% of nutritional needs 2. wt stability, skin to remain intact, glucose WNL
--- NOTE | 2017-03-31 02:08 | Progress Notes ---
DATE: 03/30/2017 Case was discussed with staff of patient's records. The patient continues to stay in bed. He tends to minimize his symptoms. He continues to be unpredictable, impulsive, needing redirection, internally preoccupied, but he denies that he is hearing voices or seeing things. He is already on Lexapro 20 mg a day, and I did initiate Abilify on him because of his severe depression. I will be increasing the dose to 5 mg a day and so far no side effects, no sedation, no nausea and no extrapyramidal symptoms. We will continue to work with the patient in group therapy, milieu therapy, adjust the medication as needed. JOB# [id number]
[2017-03-31] MEDS: Multivitamin w/ Minerals Tab PO SCH (09:59)
--- NOTE | 2017-03-31 16:36 | Internal Medicine Prog Note ---
Internal Medicine Subjective - Subjective Service Date: 03/31/17 Patient seen and examined:: without staff Patient is:: awake, verbal, in bed, talking, confused Per staff patient has:: no adverse event Internal Medicine Objective - Results Result Diagrams: 03/23/17 18:00 03/23/17 18:00 Recent Labs: Laboratory Last Values WBC 5.6 Th/cmm (4.8-10.8) 03/23/17 18:00 RBC 4.76 Mil/cmm (3.80-5.80) 03/23/17 18:00 Hgb 14.6 gm/dL (12-16) 03/23/17 18:00 Hct 43.0 % (41.0-60) 03/23/17 18:00 MCV 90.4 fl (80-99) 03/23/17 18:00 MCH 30.7 pg (27.0-31.0) 03/23/17 18:00 MCHC Differential 33.9 pg (28.0-36.0) 03/23/17 18:00 RDW 12.7 % (11.5-20.0) 03/23/17 18:00 Plt Count 162 Th/cmm (150-400) 03/23/17 18:00 MPV 8.4 fl 03/23/17 18:00 Neutrophils % 73.7 % (40.0-80.0) 03/23/17 18:00 Lymphocytes % 17.4 % (20.0-50.0) L 03/23/17 18:00 Monocytes % 6.8 % (2.0-10.0) 03/23/17 18:00 Eosinophils % 1.8 % (0.0-5.0) 03/23/17 18:00 Basophils % 0.3 % (0.0-2.0) 03/23/17 18:00 Sodium 135 mEq/L (136-145) L 03/23/17 18:00 Potassium 3.9 mEq/L (3.5-5.1) 03/23/17 18:00 Chloride 104 mEq/L (98-107) 03/23/17 18:00 Carbon Dioxide 25.7 mEq/L (21.0-31.0) 03/23/17 18:00 Anion Gap 9.2 (7.0-16.0) 03/23/17 18:00 BUN 22 mg/dL (7-25) 03/23/17 18:00 Creatinine 0.9 mg/dL (0.7-1.3) 03/23/17 18:00 Est GFR ( Amer) > 60.0 ml/min (>90) 03/23/17 18:00 Est GFR (Non-Af Amer) > 60.0 ml/min 03/23/17 18:00 BUN/Creatinine Ratio 24.4 03/23/17 18:00 Glucose 102 mg/dL (70-105) 03/23/17 18:00 POC Glucose 101 MG/DL (70 - 105) 03/30/17 21:49 Calcium 9.3 mg/dL (8.6-10.3) 03/23/17 18:00 Magnesium 2.1 mg/dL (1.9-2.7) 03/23/17 18:00 Total Bilirubin 0.8 mg/dL (0.3-1.0) 03/23/17 18:00 AST 13 U/L (13-39) 03/23/17 18:00 ALT 5 U/L (7-52) L 03/23/17 18:00 Alkaline Phosphatase 65 U/L (34-104) 03/23/17 18:00 Total Protein 6.6 gm/dL (6.0-8.3) 03/23/17 18:00 Albumin 4.1 gm/dL (4.2-5.5) L 03/23/17 18:00 Globulin 2.5 gm/dL 03/23/17 18:00 Albumin/Globulin Ratio 1.6 (1.0-1.8) 03/23/17 18:00 Urine Source CLEAN C 03/23/17 18:20 Urine Color YELLOW 03/23/17 18:20 Urine Clarity CLEAR (CLEAR) 03/23/17 18:20 Urine pH 5.5 (4.6 - 8.0) 03/23/17 18:20 Ur Specific [place] >= 1.030 (1.005-1.030) 03/23/17 18:20 Urine Protein NEGATIVE mg/dL (NEGATIVE) 03/23/17 18:20 Urine Glucose (UA) NEGATIVE mg/dL (NEGATIVE) 03/23/17 18:20 Urine Ketones NEGATIVE mg/dL (NEGATIVE) 03/23/17 18:20 Urine Blood TRACE (NEGATIVE) 03/23/17 18:20 Urine Nitrate NEGATIVE (NEGATIVE) 03/23/17 18:20 Urine Bilirubin NEGATIVE (NEGATIVE) 03/23/17 18:20 Urine Urobilinogen 1.0 E.U./dL (0.2 - 1.0) 03/23/17 18:20 Ur Leukocyte Esterase NEGATIVE (NEGATIVE) 03/23/17 18:20 Urine RBC 2-5 /hpf (0-5) H 03/23/17 18:20 Urine WBC 0-2 /hpf (0-5) 03/23/17 18:20 Ur Epithelial Cells FEW /lpf (FEW) 03/23/17 18:20 Urine Bacteria OCCASIONAL /hpf (NONE SEEN) 03/23/17 18:20 - Physical Exam Vitals and I&O: Vital Signs Temp 97.6 F 03/30/17 15:34 Pulse 66 03/30/17 15:34 Resp 18 03/30/17 15:34 BP 120/75 03/30/17 15:34 Pulse Ox 97 03/30/17 15:34 Intake & Output 03/30/17 03/31/17 03/31/17 18:59 06:59 18:59 Intake Total 1200 Balance 1200 Intake: Oral 1200 Other: # Voids 5 # Bowel Movements 1 Active Medications: Current Medications Acetaminophen (Tylenol) 650 mg PO Q4HR PRN PRN Reason: Pain Stop: 05/22/17 22:48 Al Hydrox/Mg Hydrox/Simethicone (Maalox) 30 ml PO Q6H PRN PRN Reason: Dyspepsia Stop: 05/23/17 01:14 Aripiprazole (Abilify) 5 mg PO DAILY [facility] PRN Reason: Protocol Stop: 05/29/17 10:58 Last Admin: 03/31/17 09:59 Dose: 5 mg Cholecalciferol (Vitamin D3) 3,000 iu PO DAILY [facility] Stop: 05/23/17 08:59 Last Admin: 03/31/17 09:59 Dose: 3,000 iu Docusate Sodium (Colace) 100 mg PO BID [facility] Stop: 05/23/17 08:59 Last Admin: 03/31/17 16:09 Dose: 100 mg Donepezil HCl (Aricept) 10 mg PO HS [facility] Stop: 05/23/17 20:59 Last Admin: 03/30/17 21:28 Dose: 10 mg Escitalopram Oxalate (Lexapro) 20 mg PO DAILY [facility] Stop: 05/27/17 08:59 Last Admin: 03/31/17 09:59 Dose: 20 mg Lorazepam (Ativan) 0.5 mg PO Q6H PRN PRN Reason: Anxiety/Agitation Stop: 05/26/17 10:42 Magnesium Hydroxide (Milk Of Magnesia) 30 ml PO DAILY PRN PRN Reason: Constipation Stop: 05/22/17 22:48 Memantine (Namenda) 10 mg PO BID [facility] Stop: 05/23/17 08:59 Last Admin: 03/31/17 16:09 Dose: 10 mg Thiamine HCl (Vitamin B1) 100 mg PO DAILY [facility] Stop: 05/23/17 08:59 Last Admin: 03/31/17 09:59 Dose: 100 mg Timolol Maleate (Timoptic 0.5% Ophth Soln) 1 drop EACH EYE BID [facility] Stop: 05/23/17 08:59 Last Admin: 03/31/17 16:09 Dose: 1 drop Zolpidem Tartrate (Ambien) 5 mg PO HS PRN PRN Reason: Insomnia Stop: 05/23/17 01:14 Last Admin: 03/27/17 21:23 Dose: 5 mg General: demented HEENT: NC/AT, PERRLA, EOMI, anicteric sclerae, throat clear Neck: Supple, No JVD, No thyromegaly, +2 carotid pulse wo bruit, No LAD Lungs: CTAB Cardiovascular: RRR, Normal S1, Normal S2, without murmur Abdomen: soft, non-tender, non-distended Extremities: clear Neurological: no change Internal Medicine Assmt/Plan - Assessment Assessment: 1.DM. 2.TBI. 3.ANEMIA. 4.DEMENTIA. - Plan Plan: CONTINUE ON CURRENT MEDICATION AND DIET. Nutritional Asmnt/Malnutr-PDOC - Dietary Evaluation Malnutrition Findings (Please click <Entered> for more info): Nutritional Asmnt/Malnutrition Start: 03/28/17 12: 36 Text: Status: Complete Freq: Document 03/28/17 12:36 DIANA (Rec: 03/28/17 12:53 DIANA MARIN-FN) Nutritional Asmnt/Malnutrition Patient General Information Nutritional Screening Moderate Risk Diagnosis psychosis, agitation Pertinent Medical Hx/Surgical Hx DM, traumatic brain injury, dementia, anemia, glaucoma Subjective Information Pt seen lying on bed in his room. Spoke to nurse, pt did not eat breakfast this morning . Visited again during lunch time, pt was eating burgers brought by his brother. Per note, PO intake 100%. YUNIOR Sun reported pt POC 90-100 WNL, considering regular diet. Current Diet Order/ Nutrition Support CCHO with HS snack Pertinent Medications Vit D3, Vit B1 Pertinent Labs 03/23 Na 135L, ALT 5 L, Alb 4. 1L, Glu 102 POC 92-101 Nutritional Hx/Data Height 1.65 m Height (Calculated Centimeters) 165.1 Current Weight (lbs) 75.296 kg Weight (Calculated Kilograms) 75.3 Weight (Calculated Grams) 10885.3 [place] Body Weight 136 % [place] Body Weight 122 Body Mass Index (BMI) 27.6 Weight Status Overweight GI Symptoms GI Symptoms None Last BM 03/27 Difficult in: None Food Allergies No Usual diet at home not able to obtain Skin Integrity/Comment: intact Current %PO Fair (50-74%) Estimated Nutritional Goals BEE in Kcals: Using Current wt Calories/Kcals/Kg 25-30 Kcals Calculated Protein: Using Current wt Protein g/k.8-1 Protein Calculated 60-75 Fluid: ml 5024-8268 Nutritional Problem No current Nutrition Prob Problem N/A Malnutrition Alert Protein-Calorie Malnutrition N/A Is there a minimum of two criteria No selected? Query Text:Check all the applicable criteria. A minimum of two criteria are recommended for diagnosis of either severe or non-severe malnutrition. Intervention/Recommendation Comments 1. Recommended regular diet d/ t pt has normal glucose level. YUNIOR Sun will notify when MD is here this afternoon. 2. monitor wt weekly, glucose, skin integrity 3. F/U as moderate risk in 3-5 days, 03/31-04/02 Expected Outcomes/Goals Expected Outcomes/Goals 1. PO intake continue to meet 100% of nutritional needs 2. wt stability, skin to remain intact, glucose WNL
[2017-04-01] MEDS: Multivitamin w/ Minerals Tab PO SCH (08:20)
--- NOTE | 2017-04-01 21:53 | Internal Medicine Prog Note ---
Internal Medicine Subjective - Subjective Service Date: 04/01/17 Patient seen and examined:: without staff Patient is:: awake, verbal, in bed, talking, confused Per staff patient has:: no adverse event Internal Medicine Objective - Results Result Diagrams: 03/23/17 18:00 03/23/17 18:00 Recent Labs: Laboratory Last Values WBC 5.6 Th/cmm (4.8-10.8) 03/23/17 18:00 RBC 4.76 Mil/cmm (3.80-5.80) 03/23/17 18:00 Hgb 14.6 gm/dL (12-16) 03/23/17 18:00 Hct 43.0 % (41.0-60) 03/23/17 18:00 MCV 90.4 fl (80-99) 03/23/17 18:00 MCH 30.7 pg (27.0-31.0) 03/23/17 18:00 MCHC Differential 33.9 pg (28.0-36.0) 03/23/17 18:00 RDW 12.7 % (11.5-20.0) 03/23/17 18:00 Plt Count 162 Th/cmm (150-400) 03/23/17 18:00 MPV 8.4 fl 03/23/17 18:00 Neutrophils % 73.7 % (40.0-80.0) 03/23/17 18:00 Lymphocytes % 17.4 % (20.0-50.0) L 03/23/17 18:00 Monocytes % 6.8 % (2.0-10.0) 03/23/17 18:00 Eosinophils % 1.8 % (0.0-5.0) 03/23/17 18:00 Basophils % 0.3 % (0.0-2.0) 03/23/17 18:00 Sodium 135 mEq/L (136-145) L 03/23/17 18:00 Potassium 3.9 mEq/L (3.5-5.1) 03/23/17 18:00 Chloride 104 mEq/L (98-107) 03/23/17 18:00 Carbon Dioxide 25.7 mEq/L (21.0-31.0) 03/23/17 18:00 Anion Gap 9.2 (7.0-16.0) 03/23/17 18:00 BUN 22 mg/dL (7-25) 03/23/17 18:00 Creatinine 0.9 mg/dL (0.7-1.3) 03/23/17 18:00 Est GFR ( Amer) > 60.0 ml/min (>90) 03/23/17 18:00 Est GFR (Non-Af Amer) > 60.0 ml/min 03/23/17 18:00 BUN/Creatinine Ratio 24.4 03/23/17 18:00 Glucose 102 mg/dL (70-105) 03/23/17 18:00 POC Glucose 86 MG/DL (70 - 105) 04/01/17 05:56 Calcium 9.3 mg/dL (8.6-10.3) 03/23/17 18:00 Magnesium 2.1 mg/dL (1.9-2.7) 03/23/17 18:00 Total Bilirubin 0.8 mg/dL (0.3-1.0) 03/23/17 18:00 AST 13 U/L (13-39) 03/23/17 18:00 ALT 5 U/L (7-52) L 03/23/17 18:00 Alkaline Phosphatase 65 U/L (34-104) 03/23/17 18:00 Total Protein 6.6 gm/dL (6.0-8.3) 03/23/17 18:00 Albumin 4.1 gm/dL (4.2-5.5) L 03/23/17 18:00 Globulin 2.5 gm/dL 03/23/17 18:00 Albumin/Globulin Ratio 1.6 (1.0-1.8) 03/23/17 18:00 Urine Source CLEAN C 03/23/17 18:20 Urine Color YELLOW 03/23/17 18:20 Urine Clarity CLEAR (CLEAR) 03/23/17 18:20 Urine pH 5.5 (4.6 - 8.0) 03/23/17 18:20 Ur Specific [place] >= 1.030 (1.005-1.030) 03/23/17 18:20 Urine Protein NEGATIVE mg/dL (NEGATIVE) 03/23/17 18:20 Urine Glucose (UA) NEGATIVE mg/dL (NEGATIVE) 03/23/17 18:20 Urine Ketones NEGATIVE mg/dL (NEGATIVE) 03/23/17 18:20 Urine Blood TRACE (NEGATIVE) 03/23/17 18:20 Urine Nitrate NEGATIVE (NEGATIVE) 03/23/17 18:20 Urine Bilirubin NEGATIVE (NEGATIVE) 03/23/17 18:20 Urine Urobilinogen 1.0 E.U./dL (0.2 - 1.0) 03/23/17 18:20 Ur Leukocyte Esterase NEGATIVE (NEGATIVE) 03/23/17 18:20 Urine RBC 2-5 /hpf (0-5) H 03/23/17 18:20 Urine WBC 0-2 /hpf (0-5) 03/23/17 18:20 Ur Epithelial Cells FEW /lpf (FEW) 03/23/17 18:20 Urine Bacteria OCCASIONAL /hpf (NONE SEEN) 03/23/17 18:20 - Physical Exam Vitals and I&O: Vital Signs Temp 98.5 F 04/01/17 20:52 Pulse 75 04/01/17 20:52 Resp 19 04/01/17 20:52 BP 111/66 04/01/17 20:52 Pulse Ox 96 04/01/17 20:52 Intake & Output 04/01/17 04/01/17 04/02/17 06:59 18:59 06:59 Intake Total 120 120 Balance 120 120 Intake: Oral 120 120 Other: # Voids 3 3 # Bowel Movements 0 Stool Characteristics Formed Formed [place] Active Medications: Current Medications Acetaminophen (Tylenol) 650 mg PO Q4HR PRN PRN Reason: Pain Stop: 05/22/17 22:48 Al Hydrox/Mg Hydrox/Simethicone (Maalox) 30 ml PO Q6H PRN PRN Reason: Dyspepsia Stop: 05/23/17 01:14 Aripiprazole (Abilify) 5 mg PO DAILY [facility] PRN Reason: Protocol Stop: 05/29/17 10:58 Last Admin: 04/01/17 08:19 Dose: 5 mg Cholecalciferol (Vitamin D3) 3,000 iu PO DAILY [facility] Stop: 05/23/17 08:59 Last Admin: 04/01/17 08:21 Dose: 3,000 iu Docusate Sodium (Colace) 100 mg PO BID [facility] Stop: 05/23/17 08:59 Last Admin: 04/01/17 17:35 Dose: 100 mg Donepezil HCl (Aricept) 10 mg PO HS [facility] Stop: 05/23/17 20:59 Last Admin: 04/01/17 20:53 Dose: 10 mg Escitalopram Oxalate (Lexapro) 20 mg PO DAILY [facility] Stop: 05/27/17 08:59 Last Admin: 04/01/17 08:20 Dose: 20 mg Lorazepam (Ativan) 0.5 mg PO Q6H PRN PRN Reason: Anxiety/Agitation Stop: 05/26/17 10:42 Magnesium Hydroxide (Milk Of Magnesia) 30 ml PO DAILY [facility]N PRN Reason: Constipation Stop: 05/22/17 22:48 Memantine (Namenda) 10 mg PO BID [facility] Stop: 05/23/17 08:59 Last Admin: 04/01/17 17:35 Dose: 10 mg Thiamine HCl (Vitamin B1) 100 mg PO DAILY [facility] Stop: 05/23/17 08:59 Last Admin: 04/01/17 08:20 Dose: 100 mg Timolol Maleate (Timoptic 0.5% Ophth Soln) 1 drop EACH EYE BID [facility] Stop: 05/23/17 08:59 Last Admin: 04/01/17 17:37 Dose: 1 drop Zolpidem Tartrate (Ambien) 5 mg PO HS PRN PRN Reason: Insomnia Stop: 05/23/17 01:14 Last Admin: 03/27/17 21:23 Dose: 5 mg General: demented HEENT: NC/AT, PERRLA, EOMI, anicteric sclerae, throat clear Neck: Supple, No JVD, No thyromegaly, +2 carotid pulse wo bruit, No LAD Lungs: CTAB Cardiovascular: RRR, Normal S1, Normal S2, without murmur Abdomen: soft, non-tender, non-distended Extremities: clear Neurological: no change Internal Medicine Assmt/Plan - Assessment Assessment: 1.DM. 2.TBI. 3.ANEMIA. 4.DEMENTIA. - Plan Plan: CONTINUE ON CURRENT MEDICATION AND DIET. Nutritional Asmnt/Malnutr-PDOC - Dietary Evaluation Malnutrition Findings (Please click <Entered> for more info): Nutritional Asmnt/Malnutrition Start: 03/28/17 12: 36 Text: Status: Complete Freq: Document 03/28/17 12:36 LCHENG (Rec: 03/28/17 12:53 LCHENG [email or web address]) Nutritional Asmnt/Malnutrition Patient General Information Nutritional Screening Moderate Risk Diagnosis psychosis, agitation Pertinent Medical Hx/Surgical Hx DM, traumatic brain injury, dementia, anemia, glaucoma Subjective Information Pt seen lying on bed in his room. Spoke to nurse, pt did not eat breakfast this morning . Visited again during lunch time, pt was eating burgers brought by his brother. Per note, PO intake 100%. YUNIOR Sun reported pt POC 90-100 WNL, considering regular diet. Current Diet Order/ Nutrition Support CCHO with HS snack Pertinent Medications Vit D3, Vit B1 Pertinent Labs 03/23 Na 135L, ALT 5 L, Alb 4. 1L, Glu 102 POC 92-101 Nutritional Hx/Data Height 1.65 m Height (Calculated Centimeters) 165.1 Current Weight (lbs) 75.296 kg Weight (Calculated Kilograms) 75.3 Weight (Calculated Grams) 98367.3 Pratts Body Weight 136 % Pratts Body Weight 122 Body Mass Index (BMI) 27.6 Weight Status Overweight GI Symptoms GI Symptoms None Last BM 03/27 Difficult in: None Food Allergies No Usual diet at home not able to obtain Skin Integrity/Comment: intact Current %PO Fair (50-74%) Estimated Nutritional Goals BEE in Kcals: Using Current wt Calories/Kcals/Kg 25-30 Kcals Calculated 9261-4228 Protein: Using Current wt Protein g/k.8-1 Protein Calculated 60-75 Fluid: ml 7573-5765 Nutritional Problem No current Nutrition Prob Problem N/A Malnutrition Alert Protein-Calorie Malnutrition N/A Is there a minimum of two criteria No selected? Query Text:Check all the applicable criteria. A minimum of two criteria are recommended for diagnosis of either severe or non-severe malnutrition. Intervention/Recommendation Comments 1. Recommended regular diet d/ t pt has normal glucose level. YUNIOR Sun will notify when MD is here this afternoon. 2. monitor wt weekly, glucose, skin integrity 3. F/U as moderate risk in 3-5 days, 03/31-04/02 Expected Outcomes/Goals Expected Outcomes/Goals 1. PO intake continue to meet 100% of nutritional needs 2. wt stability, skin to remain intact, glucose WNL
--- NOTE | 2017-04-02 02:32 | Progress Notes ---
DATE: 03/31/2017 Dr. Jose covering for Dr. Shah. SUBJECTIVE: Chart reviewed and the patient interviewed. Also discussed the patient's condition with the staff and reviewed records and labs. The patient is still isolative and withdrawn. The patient also is still in a depressed mood. She also wants to be left alone. She is complaining about her roommate and she does not like her roommate. The patient also is impulsive and unpredictable behavior continues. ASSESSMENT: The patient is still psychotic. TREATMENT PLAN: We will continue to monitor her behavior and her condition closely. Also, continue ___ and psychotropic medications and the patient is compliant with taking Lexapro in a dose of 20 mg every day as well as Aricept 10 mg at bedtime and Abilify 5 mg everyday and we will continue to follow up closely. JOB# [id number]
--- NOTE | 2017-04-02 03:48 | Progress Notes ---
DATE: 04/01/2017 PSYCHIATRIC PROGRESS NOTE SUBJECTIVE: Chart reviewed and the patient interviewed. Also discussed the patient's condition with the staff and reviewed records and labs. The patient is still impulsive and he is still intrusive and needs lots of redirections. The patient also has been having unpredictable behavior and he is still reporting auditory hallucinations and seeing things that were not there. The patient also is still suspicious and is still paranoid. He also is still easily agitated and restless. Otherwise, the patient is compliant with taking his medications with no side effect of medications. ASSESSMENT: The patient is still psychotic. TREATMENT PLAN: We will continue to monitor his behavior and his condition closely. Also, continue adjusting psychotropic medications and work on behavioral agitation and continue to follow up. JOB# [id number]
[2017-04-02] MEDS: Multivitamin w/ Minerals Tab PO SCH (08:09)
--- NOTE | 2017-04-02 20:40 | Internal Medicine Prog Note ---
Internal Medicine Subjective - Subjective Service Date: 04/02/17 Patient seen and examined:: with staff Patient is:: awake, verbal, in bed, talking, confused Per staff patient has:: no adverse event Internal Medicine Objective - Results Result Diagrams: 03/23/17 18:00 03/23/17 18:00 Recent Labs: Laboratory Last Values WBC 5.6 Th/cmm (4.8-10.8) 03/23/17 18:00 RBC 4.76 Mil/cmm (3.80-5.80) 03/23/17 18:00 Hgb 14.6 gm/dL (12-16) 03/23/17 18:00 Hct 43.0 % (41.0-60) 03/23/17 18:00 MCV 90.4 fl (80-99) 03/23/17 18:00 MCH 30.7 pg (27.0-31.0) 03/23/17 18:00 MCHC Differential 33.9 pg (28.0-36.0) 03/23/17 18:00 RDW 12.7 % (11.5-20.0) 03/23/17 18:00 Plt Count 162 Th/cmm (150-400) 03/23/17 18:00 MPV 8.4 fl 03/23/17 18:00 Neutrophils % 73.7 % (40.0-80.0) 03/23/17 18:00 Lymphocytes % 17.4 % (20.0-50.0) L 03/23/17 18:00 Monocytes % 6.8 % (2.0-10.0) 03/23/17 18:00 Eosinophils % 1.8 % (0.0-5.0) 03/23/17 18:00 Basophils % 0.3 % (0.0-2.0) 03/23/17 18:00 Sodium 135 mEq/L (136-145) L 03/23/17 18:00 Potassium 3.9 mEq/L (3.5-5.1) 03/23/17 18:00 Chloride 104 mEq/L (98-107) 03/23/17 18:00 Carbon Dioxide 25.7 mEq/L (21.0-31.0) 03/23/17 18:00 Anion Gap 9.2 (7.0-16.0) 03/23/17 18:00 BUN 22 mg/dL (7-25) 03/23/17 18:00 Creatinine 0.9 mg/dL (0.7-1.3) 03/23/17 18:00 Est GFR ( Amer) > 60.0 ml/min (>90) 03/23/17 18:00 Est GFR (Non-Af Amer) > 60.0 ml/min 03/23/17 18:00 BUN/Creatinine Ratio 24.4 03/23/17 18:00 Glucose 102 mg/dL (70-105) 03/23/17 18:00 POC Glucose 104 MG/DL (70 - 105) 04/01/17 20:55 Calcium 9.3 mg/dL (8.6-10.3) 03/23/17 18:00 Magnesium 2.1 mg/dL (1.9-2.7) 03/23/17 18:00 Total Bilirubin 0.8 mg/dL (0.3-1.0) 03/23/17 18:00 AST 13 U/L (13-39) 03/23/17 18:00 ALT 5 U/L (7-52) L 03/23/17 18:00 Alkaline Phosphatase 65 U/L (34-104) 03/23/17 18:00 Total Protein 6.6 gm/dL (6.0-8.3) 03/23/17 18:00 Albumin 4.1 gm/dL (4.2-5.5) L 03/23/17 18:00 Globulin 2.5 gm/dL 03/23/17 18:00 Albumin/Globulin Ratio 1.6 (1.0-1.8) 03/23/17 18:00 Urine Source CLEAN C 03/23/17 18:20 Urine Color YELLOW 03/23/17 18:20 Urine Clarity CLEAR (CLEAR) 03/23/17 18:20 Urine pH 5.5 (4.6 - 8.0) 03/23/17 18:20 Ur Specific [place] >= 1.030 (1.005-1.030) 03/23/17 18:20 Urine Protein NEGATIVE mg/dL (NEGATIVE) 03/23/17 18:20 Urine Glucose (UA) NEGATIVE mg/dL (NEGATIVE) 03/23/17 18:20 Urine Ketones NEGATIVE mg/dL (NEGATIVE) 03/23/17 18:20 Urine Blood TRACE (NEGATIVE) 03/23/17 18:20 Urine Nitrate NEGATIVE (NEGATIVE) 03/23/17 18:20 Urine Bilirubin NEGATIVE (NEGATIVE) 03/23/17 18:20 Urine Urobilinogen 1.0 E.U./dL (0.2 - 1.0) 03/23/17 18:20 Ur Leukocyte Esterase NEGATIVE (NEGATIVE) 03/23/17 18:20 Urine RBC 2-5 /hpf (0-5) H 03/23/17 18:20 Urine WBC 0-2 /hpf (0-5) 03/23/17 18:20 Ur Epithelial Cells FEW /lpf (FEW) 03/23/17 18:20 Urine Bacteria OCCASIONAL /hpf (NONE SEEN) 03/23/17 18:20 - Physical Exam Vitals and I&O: Vital Signs Temp 98.4 F 04/02/17 20:27 Pulse 70 04/02/17 20:27 Resp 17 04/02/17 20:27 BP 121/76 04/02/17 20:27 Pulse Ox 98 04/02/17 20:27 Intake & Output 04/02/17 04/02/17 04/03/17 06:59 18:59 06:59 Intake Total 240 Balance 240 Intake: Oral 240 Other: # Voids 1 # Bowel Movements 0 Stool Characteristics Formed Soft Formed Brown Formed Brown Active Medications: Current Medications Acetaminophen (Tylenol) 650 mg PO Q4HR PRN PRN Reason: Pain Stop: 05/22/17 22:48 Al Hydrox/Mg Hydrox/Simethicone (Maalox) 30 ml PO Q6H PRN PRN Reason: Dyspepsia Stop: 05/23/17 01:14 Aripiprazole (Abilify) 5 mg PO DAILY [facility] PRN Reason: Protocol Stop: 05/29/17 10:58 Last Admin: 04/02/17 08:09 Dose: 5 mg Cholecalciferol (Vitamin D3) 3,000 iu PO DAILY [facility] Stop: 05/23/17 08:59 Last Admin: 04/02/17 08:09 Dose: 3,000 iu Docusate Sodium (Colace) 100 mg PO BID [facility] Stop: 05/23/17 08:59 Last Admin: 04/02/17 16:45 Dose: 100 mg Donepezil HCl (Aricept) 10 mg PO HS [facility] Stop: 05/23/17 20:59 Last Admin: 04/01/17 20:53 Dose: 10 mg Escitalopram Oxalate (Lexapro) 20 mg PO DAILY [facility] Stop: 05/27/17 08:59 Last Admin: 04/02/17 08:09 Dose: 20 mg Lorazepam (Ativan) 0.5 mg PO Q6H PRN PRN Reason: Anxiety/Agitation Stop: 05/26/17 10:42 Magnesium Hydroxide (Milk Of Magnesia) 30 ml PO DAILY PRN PRN Reason: Constipation Stop: 05/22/17 22:48 Memantine (Namenda) 10 mg PO BID [facility] Stop: 05/23/17 08:59 Last Admin: 04/02/17 16:46 Dose: 10 mg Thiamine HCl (Vitamin B1) 100 mg PO DAILY [facility] Stop: 05/23/17 08:59 Last Admin: 04/02/17 08:09 Dose: 100 mg Timolol Maleate (Timoptic 0.5% Ophth Soln) 1 drop EACH EYE BID [facility] Stop: 05/23/17 08:59 Last Admin: 04/02/17 16:51 Dose: 1 drop Zolpidem Tartrate (Ambien) 5 mg PO HS PRN PRN Reason: Insomnia Stop: 05/23/17 01:14 Last Admin: 03/27/17 21:23 Dose: 5 mg General: demented HEENT: NC/AT, PERRLA, EOMI, anicteric sclerae, throat clear Neck: Supple, No JVD, No thyromegaly, +2 carotid pulse wo bruit, No LAD Lungs: CTAB Cardiovascular: RRR, Normal S1, Normal S2, without murmur Abdomen: soft, non-tender, non-distended Extremities: clear Neurological: no change Internal Medicine Assmt/Plan - Assessment Assessment: 1.DM. 2.TBI. 3.ANEMIA. 4.DEMENTIA. - Plan Plan: CONTINUE ON CURRENT MEDICATION AND DIET. Nutritional Asmnt/Malnutr-PDOC - Dietary Evaluation Malnutrition Findings (Please click <Entered> for more info): Nutritional Asmnt/Malnutrition Start: 03/28/17 12: 36 Text: Status: Complete Freq: Document 03/28/17 12:36 LCHENG (Rec: 03/28/17 12:53 LCHENG [email or web address]) Nutritional Asmnt/Malnutrition Patient General Information Nutritional Screening Moderate Risk Diagnosis psychosis, agitation Pertinent Medical Hx/Surgical Hx DM, traumatic brain injury, dementia, anemia, glaucoma Subjective Information Pt seen lying on bed in his room. Spoke to nurse, pt did not eat breakfast this morning . Visited again during lunch time, pt was eating burgers brought by his brother. Per note, PO intake 100%. YUNIOR Sun reported pt POC 90-100 WNL, considering regular diet. Current Diet Order/ Nutrition Support CCHO with HS snack Pertinent Medications Vit D3, Vit B1 Pertinent Labs 03/23 Na 135L, ALT 5 L, Alb 4. 1L, Glu 102 POC 92-101 Nutritional Hx/Data Height 1.65 m Height (Calculated Centimeters) 165.1 Current Weight (lbs) 75.296 kg Weight (Calculated Kilograms) 75.3 Weight (Calculated Grams) 25848.3 [place] Body Weight 136 % [place] Body Weight 122 Body Mass Index (BMI) 27.6 Weight Status Overweight GI Symptoms GI Symptoms None Last BM 03/27 Difficult in: None Food Allergies No Usual diet at home not able to obtain Skin Integrity/Comment: intact Current %PO Fair (50-74%) Estimated Nutritional Goals BEE in Kcals: Using Current wt Calories/Kcals/Kg 25-30 Kcals Calculated 3692-9516 Protein: Using Current wt Protein g/k.8-1 Protein Calculated 60-75 Fluid: ml 2184-5552 Nutritional Problem No current Nutrition Prob Problem N/A Malnutrition Alert Protein-Calorie Malnutrition N/A Is there a minimum of two criteria No selected? Query Text:Check all the applicable criteria. A minimum of two criteria are recommended for diagnosis of either severe or non-severe malnutrition. Intervention/Recommendation Comments 1. Recommended regular diet d/ t pt has normal glucose level. YUNIOR Sun will notify when MD is here this afternoon. 2. monitor wt weekly, glucose, skin integrity 3. F/U as moderate risk in 3-5 days, 03/31-04/02 Expected Outcomes/Goals Expected Outcomes/Goals 1. PO intake continue to meet 100% of nutritional needs 2. wt stability, skin to remain intact, glucose WNL
--- NOTE | 2017-04-02 21:58 | Progress Notes ---
DATE: 04/02/2017 Case discussed with staff and reviewed records. The patient continually progressed. He is more animated. He is out of his room. He is actually engaging in conversation with another female patient. He seems to be more appropriate, able to smile. He is sleeping well, eating well. He is compliant with the medication with no side effects, no sedation, no nausea, no extrapyramidal symptoms. We will continue outpatient group therapy, milieu therapy, and adjust medication as needed. [facility]# [id number]
[2017-04-03] MEDS: Multivitamin w/ Minerals Tab PO SCH (09:56)
--- NOTE | 2017-04-03 10:37 | Internal Medicine Prog Note ---
Internal Medicine Subjective - Subjective Service Date: 04/03/17 Patient seen and examined:: with staff Patient is:: awake, verbal, in bed, talking, confused Per staff patient has:: no adverse event Internal Medicine Objective - Results Result Diagrams: 03/23/17 18:00 03/23/17 18:00 Recent Labs: Laboratory Last Values WBC 5.6 Th/cmm (4.8-10.8) 03/23/17 18:00 RBC 4.76 Mil/cmm (3.80-5.80) 03/23/17 18:00 Hgb 14.6 gm/dL (12-16) 03/23/17 18:00 Hct 43.0 % (41.0-60) 03/23/17 18:00 MCV 90.4 fl (80-99) 03/23/17 18:00 MCH 30.7 pg (27.0-31.0) 03/23/17 18:00 MCHC Differential 33.9 pg (28.0-36.0) 03/23/17 18:00 RDW 12.7 % (11.5-20.0) 03/23/17 18:00 Plt Count 162 Th/cmm (150-400) 03/23/17 18:00 MPV 8.4 fl 03/23/17 18:00 Neutrophils % 73.7 % (40.0-80.0) 03/23/17 18:00 Lymphocytes % 17.4 % (20.0-50.0) L 03/23/17 18:00 Monocytes % 6.8 % (2.0-10.0) 03/23/17 18:00 Eosinophils % 1.8 % (0.0-5.0) 03/23/17 18:00 Basophils % 0.3 % (0.0-2.0) 03/23/17 18:00 Sodium 135 mEq/L (136-145) L 03/23/17 18:00 Potassium 3.9 mEq/L (3.5-5.1) 03/23/17 18:00 Chloride 104 mEq/L (98-107) 03/23/17 18:00 Carbon Dioxide 25.7 mEq/L (21.0-31.0) 03/23/17 18:00 Anion Gap 9.2 (7.0-16.0) 03/23/17 18:00 BUN 22 mg/dL (7-25) 03/23/17 18:00 Creatinine 0.9 mg/dL (0.7-1.3) 03/23/17 18:00 Est GFR ( Amer) > 60.0 ml/min (>90) 03/23/17 18:00 Est GFR (Non-Af Amer) > 60.0 ml/min 03/23/17 18:00 BUN/Creatinine Ratio 24.4 03/23/17 18:00 Glucose 102 mg/dL (70-105) 03/23/17 18:00 POC Glucose 117 MG/DL (70 - 105) H 04/02/17 20:59 Calcium 9.3 mg/dL (8.6-10.3) 03/23/17 18:00 Magnesium 2.1 mg/dL (1.9-2.7) 03/23/17 18:00 Total Bilirubin 0.8 mg/dL (0.3-1.0) 03/23/17 18:00 AST 13 U/L (13-39) 03/23/17 18:00 ALT 5 U/L (7-52) L 03/23/17 18:00 Alkaline Phosphatase 65 U/L (34-104) 03/23/17 18:00 Total Protein 6.6 gm/dL (6.0-8.3) 03/23/17 18:00 Albumin 4.1 gm/dL (4.2-5.5) L 03/23/17 18:00 Globulin 2.5 gm/dL 03/23/17 18:00 Albumin/Globulin Ratio 1.6 (1.0-1.8) 03/23/17 18:00 Urine Source CLEAN C 03/23/17 18:20 Urine Color YELLOW 03/23/17 18:20 Urine Clarity CLEAR (CLEAR) 03/23/17 18:20 Urine pH 5.5 (4.6 - 8.0) 03/23/17 18:20 Ur Specific [place] >= 1.030 (1.005-1.030) 03/23/17 18:20 Urine Protein NEGATIVE mg/dL (NEGATIVE) 03/23/17 18:20 Urine Glucose (UA) NEGATIVE mg/dL (NEGATIVE) 03/23/17 18:20 Urine Ketones NEGATIVE mg/dL (NEGATIVE) 03/23/17 18:20 Urine Blood TRACE (NEGATIVE) 03/23/17 18:20 Urine Nitrate NEGATIVE (NEGATIVE) 03/23/17 18:20 Urine Bilirubin NEGATIVE (NEGATIVE) 03/23/17 18:20 Urine Urobilinogen 1.0 E.U./dL (0.2 - 1.0) 03/23/17 18:20 Ur Leukocyte Esterase NEGATIVE (NEGATIVE) 03/23/17 18:20 Urine RBC 2-5 /hpf (0-5) H 03/23/17 18:20 Urine WBC 0-2 /hpf (0-5) 03/23/17 18:20 Ur Epithelial Cells FEW /lpf (FEW) 03/23/17 18:20 Urine Bacteria OCCASIONAL /hpf (NONE SEEN) 03/23/17 18:20 - Physical Exam Vitals and I&O: Vital Signs Temp 98.1 F 04/03/17 07:00 Pulse 72 04/03/17 07:00 Resp 18 04/03/17 07:00 BP 124/82 04/03/17 07:00 Pulse Ox 99 04/03/17 07:00 Intake & Output 04/02/17 04/03/17 04/03/17 18:59 06:59 18:59 Other: Stool Characteristics Soft Formed Formed Brown Active Medications: Current Medications Acetaminophen (Tylenol) 650 mg PO Q4HR PRN PRN Reason: Pain Stop: 05/22/17 22:48 Al Hydrox/Mg Hydrox/Simethicone (Maalox) 30 ml PO Q6H PRN PRN Reason: Dyspepsia Stop: 05/23/17 01:14 Aripiprazole (Abilify) 5 mg PO DAILY [facility] PRN Reason: Protocol Stop: 05/29/17 10:58 Last Admin: 04/03/17 09:56 Dose: 5 mg Cholecalciferol (Vitamin D3) 3,000 iu PO DAILY [facility] Stop: 05/23/17 08:59 Last Admin: 04/03/17 09:58 Dose: 3,000 iu Docusate Sodium (Colace) 100 mg PO BID [facility] Stop: 05/23/17 08:59 Last Admin: 04/03/17 09:59 Dose: 100 mg Donepezil HCl (Aricept) 10 mg PO HS [facility] Stop: 05/23/17 20:59 Last Admin: 04/02/17 20:53 Dose: 10 mg Escitalopram Oxalate (Lexapro) 20 mg PO DAILY [facility] Stop: 05/27/17 08:59 Last Admin: 04/03/17 09:58 Dose: 20 mg Lorazepam (Ativan) 0.5 mg PO Q6H PRN PRN Reason: Anxiety/Agitation Stop: 05/26/17 10:42 Magnesium Hydroxide (Milk Of Magnesia) 30 ml PO DAILY PRN PRN Reason: Constipation Stop: 05/22/17 22:48 Memantine (Namenda) 10 mg PO BID [facility] Stop: 05/23/17 08:59 Last Admin: 04/03/17 09:56 Dose: 10 mg Thiamine HCl (Vitamin B1) 100 mg PO DAILY [facility] Stop: 05/23/17 08:59 Last Admin: 04/03/17 09:58 Dose: 100 mg Timolol Maleate (Timoptic 0.5% Ophth Soln) 1 drop EACH EYE BID [facility] Stop: 05/23/17 08:59 Last Admin: 04/03/17 10:00 Dose: 1 drop Zolpidem Tartrate (Ambien) 5 mg PO HS PRN PRN Reason: Insomnia Stop: 05/23/17 01:14 Last Admin: 03/27/17 21:23 Dose: 5 mg General: demented HEENT: NC/AT, PERRLA, EOMI, anicteric sclerae, throat clear Neck: Supple, No JVD, No thyromegaly, +2 carotid pulse wo bruit, No LAD Lungs: CTAB Cardiovascular: RRR, Normal S1, Normal S2, without murmur Abdomen: soft, non-tender, non-distended Extremities: clear Neurological: no change Internal Medicine Assmt/Plan - Assessment Assessment: 1.DM. 2.TBI. 3.ANEMIA. 4.DEMENTIA. - Plan Plan: CONTINUE ON CURRENT MEDICATION AND DIET. Nutritional Asmnt/Malnutr-PDOC - Dietary Evaluation Malnutrition Findings (Please click <Entered> for more info): Nutritional Asmnt/Malnutrition Start: 03/28/17 12: 36 Text: Status: Complete Freq: Document 03/28/17 12:36 MARLEN (Rec: 03/28/17 12:53 MARLEN [email or web address]) Nutritional Asmnt/Malnutrition Patient General Information Nutritional Screening Moderate Risk Diagnosis psychosis, agitation Pertinent Medical Hx/Surgical Hx DM, traumatic brain injury, dementia, anemia, glaucoma Subjective Information Pt seen lying on bed in his room. Spoke to nurse, pt did not eat breakfast this morning . Visited again during lunch time, pt was eating burgers brought by his brother. Per note, PO intake 100%. YUNIOR Sun reported pt POC 90-100 WNL, considering regular diet. Current Diet Order/ Nutrition Support CCHO with HS snack Pertinent Medications Vit D3, Vit B1 Pertinent Labs 03/23 Na 135L, ALT 5 L, Alb 4. 1L, Glu 102 POC 92-101 Nutritional Hx/Data Height 1.65 m Height (Calculated Centimeters) 165.1 Current Weight (lbs) 75.296 kg Weight (Calculated Kilograms) 75.3 Weight (Calculated Grams) 45269.3 [place] Body Weight 136 % [place] Body Weight 122 Body Mass Index (BMI) 27.6 Weight Status Overweight GI Symptoms GI Symptoms None Last BM 03/27 Difficult in: None Food Allergies No Usual diet at home not able to obtain Skin Integrity/Comment: intact Current %PO Fair (50-74%) Estimated Nutritional Goals BEE in Kcals: Using Current wt Calories/Kcals/Kg 25-30 Kcals Calculated 6932-5852 Protein: Using Current wt Protein g/k.8-1 Protein Calculated 60-75 Fluid: ml 2496-9554 Nutritional Problem No current Nutrition Prob Problem N/A Malnutrition Alert Protein-Calorie Malnutrition N/A Is there a minimum of two criteria No selected? Query Text:Check all the applicable criteria. A minimum of two criteria are recommended for diagnosis of either severe or non-severe malnutrition. Intervention/Recommendation Comments 1. Recommended regular diet d/ t pt has normal glucose level. YUNIOR Sun will notify when MD is here this afternoon. 2. monitor wt weekly, glucose, skin integrity 3. F/U as moderate risk in 3-5 days, 03/31-04/02 Expected Outcomes/Goals Expected Outcomes/Goals 1. PO intake continue to meet 100% of nutritional needs 2. wt stability, skin to remain intact, glucose WNL
--- NOTE | 2017-04-03 23:04 | Progress Notes ---
DATE: 04/03/2017 Case was discussed with staff of the patient, reviewed records. The patient is reported by the staff to be unpredictable, impulsive, needing redirection. He has been trying to make friends on some female patients here. However, the staff feel that he needs to be supervised because of his unpredictable behavior. He is sleeping better, eating better. He is compliant with the medication with no side effects, no sedation, no nausea, no extrapyramidal symptoms. We will be increasing Abilify to 7.5 mg a day and we will continue to work with the patient in group therapy, milieu therapy, adjust medication as needed. JOB# [id number]
[2017-04-04] MEDS: Multivitamin w/ Minerals Tab PO SCH (08:35)
--- NOTE | 2017-04-04 09:52 | Progress Notes ---
DATE: The case was discussed with staff and reviewed the records. The patient continues to be ruth, irritable; however, he is able to smile more. He is sleeping better, eating better. He is tolerating increase in Abilify with no side effects, no sedation, no nausea, no extrapyramidal symptoms. He is currently a little bit more mellow and we will continue outpatient group therapy, milieu therapy, adjust medications as required. [facility]# [id number]
--- NOTE | 2017-04-04 19:58 | Internal Medicine Prog Note ---
Internal Medicine Subjective - Subjective Service Date: 04/04/17 Patient seen and examined:: with staff Patient is:: awake, verbal, in bed, talking, confused Per staff patient has:: no adverse event Internal Medicine Objective - Results Result Diagrams: 03/23/17 18:00 03/23/17 18:00 Recent Labs: Laboratory Last Values WBC 5.6 Th/cmm (4.8-10.8) 03/23/17 18:00 RBC 4.76 Mil/cmm (3.80-5.80) 03/23/17 18:00 Hgb 14.6 gm/dL (12-16) 03/23/17 18:00 Hct 43.0 % (41.0-60) 03/23/17 18:00 MCV 90.4 fl (80-99) 03/23/17 18:00 MCH 30.7 pg (27.0-31.0) 03/23/17 18:00 MCHC Differential 33.9 pg (28.0-36.0) 03/23/17 18:00 RDW 12.7 % (11.5-20.0) 03/23/17 18:00 Plt Count 162 Th/cmm (150-400) 03/23/17 18:00 MPV 8.4 fl 03/23/17 18:00 Neutrophils % 73.7 % (40.0-80.0) 03/23/17 18:00 Lymphocytes % 17.4 % (20.0-50.0) L 03/23/17 18:00 Monocytes % 6.8 % (2.0-10.0) 03/23/17 18:00 Eosinophils % 1.8 % (0.0-5.0) 03/23/17 18:00 Basophils % 0.3 % (0.0-2.0) 03/23/17 18:00 Sodium 135 mEq/L (136-145) L 03/23/17 18:00 Potassium 3.9 mEq/L (3.5-5.1) 03/23/17 18:00 Chloride 104 mEq/L (98-107) 03/23/17 18:00 Carbon Dioxide 25.7 mEq/L (21.0-31.0) 03/23/17 18:00 Anion Gap 9.2 (7.0-16.0) 03/23/17 18:00 BUN 22 mg/dL (7-25) 03/23/17 18:00 Creatinine 0.9 mg/dL (0.7-1.3) 03/23/17 18:00 Est GFR ( Amer) > 60.0 ml/min (>90) 03/23/17 18:00 Est GFR (Non-Af Amer) > 60.0 ml/min 03/23/17 18:00 BUN/Creatinine Ratio 24.4 03/23/17 18:00 Glucose 102 mg/dL (70-105) 03/23/17 18:00 POC Glucose 112 MG/DL (70 - 105) H 04/04/17 16:40 Calcium 9.3 mg/dL (8.6-10.3) 03/23/17 18:00 Magnesium 2.1 mg/dL (1.9-2.7) 03/23/17 18:00 Total Bilirubin 0.8 mg/dL (0.3-1.0) 03/23/17 18:00 AST 13 U/L (13-39) 03/23/17 18:00 ALT 5 U/L (7-52) L 03/23/17 18:00 Alkaline Phosphatase 65 U/L (34-104) 03/23/17 18:00 Total Protein 6.6 gm/dL (6.0-8.3) 03/23/17 18:00 Albumin 4.1 gm/dL (4.2-5.5) L 03/23/17 18:00 Globulin 2.5 gm/dL 03/23/17 18:00 Albumin/Globulin Ratio 1.6 (1.0-1.8) 03/23/17 18:00 Urine Source CLEAN C 03/23/17 18:20 Urine Color YELLOW 03/23/17 18:20 Urine Clarity CLEAR (CLEAR) 03/23/17 18:20 Urine pH 5.5 (4.6 - 8.0) 03/23/17 18:20 Ur Specific [place] >= 1.030 (1.005-1.030) 03/23/17 18:20 Urine Protein NEGATIVE mg/dL (NEGATIVE) 03/23/17 18:20 Urine Glucose (UA) NEGATIVE mg/dL (NEGATIVE) 03/23/17 18:20 Urine Ketones NEGATIVE mg/dL (NEGATIVE) 03/23/17 18:20 Urine Blood TRACE (NEGATIVE) 03/23/17 18:20 Urine Nitrate NEGATIVE (NEGATIVE) 03/23/17 18:20 Urine Bilirubin NEGATIVE (NEGATIVE) 03/23/17 18:20 Urine Urobilinogen 1.0 E.U./dL (0.2 - 1.0) 03/23/17 18:20 Ur Leukocyte Esterase NEGATIVE (NEGATIVE) 03/23/17 18:20 Urine RBC 2-5 /hpf (0-5) H 03/23/17 18:20 Urine WBC 0-2 /hpf (0-5) 03/23/17 18:20 Ur Epithelial Cells FEW /lpf (FEW) 03/23/17 18:20 Urine Bacteria OCCASIONAL /hpf (NONE SEEN) 03/23/17 18:20 - Physical Exam Vitals and I&O: Vital Signs Temp 97.9 F 04/04/17 14:00 Pulse 86 04/04/17 14:00 Resp 18 04/04/17 14:00 BP 107/69 04/04/17 14:00 Pulse Ox 97 04/04/17 14:00 Intake & Output 04/04/17 04/04/17 04/05/17 06:59 18:59 06:59 Intake Total 600 1200 Balance 600 1200 Intake: Oral 600 1200 Other: # Voids 1 # Bowel Movements 0 1 Stool Characteristics Formed Brown Active Medications: Current Medications Acetaminophen (Tylenol) 650 mg PO Q4HR PRN PRN Reason: Pain Stop: 05/22/17 22:48 Al Hydrox/Mg Hydrox/Simethicone (Maalox) 30 ml PO Q6H PRN PRN Reason: Dyspepsia Stop: 05/23/17 01:14 Aripiprazole (Abilify) 7.5 mg PO DAILY [facility] PRN Reason: Protocol Stop: 06/02/17 11:50 Last Admin: 04/04/17 08:35 Dose: 7.5 mg Cholecalciferol (Vitamin D3) 3,000 iu PO DAILY [facility] Stop: 05/23/17 08:59 Last Admin: 04/04/17 08:36 Dose: 3,000 iu Docusate Sodium (Colace) 100 mg PO BID [facility] Stop: 05/23/17 08:59 Last Admin: 04/04/17 16:37 Dose: 100 mg Donepezil HCl (Aricept) 10 mg PO HS [facility] Stop: 05/23/17 20:59 Last Admin: 04/03/17 20:33 Dose: 10 mg Escitalopram Oxalate (Lexapro) 20 mg PO DAILY [facility] Stop: 05/27/17 08:59 Last Admin: 04/04/17 08:35 Dose: 20 mg Lorazepam (Ativan) 0.5 mg PO Q6H PRN PRN Reason: Anxiety/Agitation Stop: 05/26/17 10:42 Magnesium Hydroxide (Milk Of Magnesia) 30 ml PO DAILY [facility] PRN Reason: Constipation Stop: 05/22/17 22:48 Memantine (Namenda) 10 mg PO BID [facility] Stop: 05/23/17 08:59 Last Admin: 04/04/17 16:37 Dose: 10 mg Thiamine HCl (Vitamin B1) 100 mg PO DAILY [facility] Stop: 05/23/17 08:59 Last Admin: 04/04/17 08:35 Dose: 100 mg Timolol Maleate (Timoptic 0.5% Oph Soln) 1 drop EACH EYE BID [facility] Stop: 05/23/17 08:59 Last Admin: 04/04/17 16:37 Dose: 1 drop Zolpidem Tartrate (Ambien) 5 mg PO HS PRN PRN Reason: Insomnia Stop: 05/23/17 01:14 Last Admin: 03/27/17 21:23 Dose: 5 mg General: demented HEENT: NC/AT, PERRLA, EOMI, anicteric sclerae, throat clear Neck: Supple, No JVD, No thyromegaly, +2 carotid pulse wo bruit, No LAD Lungs: CTAB Cardiovascular: RRR, Normal S1, Normal S2, without murmur Abdomen: soft, non-tender, non-distended Extremities: clear Neurological: no change Internal Medicine Assmt/Plan - Assessment Assessment: 1.DM. 2.TBI. 3.ANEMIA. 4.DEMENTIA. - Plan Plan: CONTINUE ON CURRENT MEDICATION AND DIET. Nutritional Asmnt/Malnutr-PDOC - Dietary Evaluation Malnutrition Findings (Please click <Entered> for more info): Nutritional Asmnt/Malnutrition Start: 03/28/17 12: 36 Text: Status: Complete Freq: Document 03/28/17 12:36 REBECCA (Rec: 03/28/17 12:53 LCHEN [email or web address]) Nutritional Asmnt/Malnutrition Patient General Information Nutritional Screening Moderate Risk Diagnosis psychosis, agitation Pertinent Medical Hx/Surgical Hx DM, traumatic brain injury, dementia, anemia, glaucoma Subjective Information Pt seen lying on bed in his room. Spoke to nurse, pt did not eat breakfast this morning . Visited again during lunch time, pt was eating burgers brought by his brother. Per note, PO intake 100%. YUNIOR Sun reported pt POC 90-100 WNL, considering regular diet. Current Diet Order/ [facility] Pertinent Medications Vit D3, Vit B1 Pertinent Labs 03/23 Na 135L, ALT 5 L, Alb 4. 1L, Glu 102 POC 92-101 Nutritional Hx/Data Height 1.65 m Height (Calculated Centimeters) 165.1 Current Weight (lbs) 75.296 kg Weight (Calculated Kilograms) 75.3 Weight (Calculated Grams) 05491.3 [place] Body Weight 136 % [place] Body Weight 122 Body Mass Index (BMI) 27.6 Weight Status Overweight GI Symptoms GI Symptoms None Last BM 03/27 Difficult in: None Food Allergies No Usual diet at home not able to obtain Skin Integrity/Comment: intact Current %PO Fair (50-74%) Estimated Nutritional Goals BEE in Kcals: Using Current wt Calories/Kcals/Kg 25-30 Kcals Calculated 1452-1417 Protein: Using Current wt Protein g/k.8-1 Protein Calculated 60-75 Fluid: ml 1698-8838 Nutritional Problem No current Nutrition Prob Problem N/A Malnutrition Alert Protein-Calorie Malnutrition N/A Is there a minimum of two criteria No selected? Query Text:Check all the applicable criteria. A minimum of two criteria are recommended for diagnosis of either severe or non-severe malnutrition. Intervention/Recommendation Comments 1. Recommended regular diet d/ t pt has normal glucose level. YUNIOR Sun will notify when MD is here this afternoon. 2. monitor wt weekly, glucose, skin integrity 3. F/U as moderate risk in 3-5 days, 03/31-04/02 Expected Outcomes/Goals Expected Outcomes/Goals 1. PO intake continue to meet 100% of nutritional needs 2. wt stability, skin to remain intact, glucose WNL
[2017-04-05] MEDS: Multivitamin w/ Minerals Tab PO SCH (08:43)
--- NOTE | 2017-04-05 09:45 | Progress Notes ---
DATE: 04/05/2017 The patient is currently in the hospital. The patient was apparently upset, suicidal, agitated, irritable. On [id number], the patient depressed, still isolating, labile mood, still not daniela for safety, some confusion noted, history of dementia, major depression. Medications were reviewed. No overt side effects. ASSESSMENT: The patient remains symptomatic, depressed, withdrawn, isolative, confusion noted. PLAN: We will continue to monitor given ongoing symptoms, not safe for discharge. [facility]# [id number]
--- NOTE | 2017-04-05 20:21 | General Progress Note ---
Subjective - Review of Systems Service Date: 04/05/17 Subjective: resting comfortably no distress Objective - Results Result Diagrams: 03/23/17 18:00 03/23/17 18:00 Recent Labs: Laboratory Last Values WBC 5.6 Th/cmm (4.8-10.8) 03/23/17 18:00 RBC 4.76 Mil/cmm (3.80-5.80) 03/23/17 18:00 Hgb 14.6 gm/dL (12-16) 03/23/17 18:00 Hct 43.0 % (41.0-60) 03/23/17 18:00 MCV 90.4 fl (80-99) 03/23/17 18:00 MCH 30.7 pg (27.0-31.0) 03/23/17 18:00 MCHC Differential 33.9 pg (28.0-36.0) 03/23/17 18:00 RDW 12.7 % (11.5-20.0) 03/23/17 18:00 Plt Count 162 Th/cmm (150-400) 03/23/17 18:00 MPV 8.4 fl 03/23/17 18:00 Neutrophils % 73.7 % (40.0-80.0) 03/23/17 18:00 Lymphocytes % 17.4 % (20.0-50.0) L 03/23/17 18:00 Monocytes % 6.8 % (2.0-10.0) 03/23/17 18:00 Eosinophils % 1.8 % (0.0-5.0) 03/23/17 18:00 Basophils % 0.3 % (0.0-2.0) 03/23/17 18:00 Sodium 135 mEq/L (136-145) L 03/23/17 18:00 Potassium 3.9 mEq/L (3.5-5.1) 03/23/17 18:00 Chloride 104 mEq/L (98-107) 03/23/17 18:00 Carbon Dioxide 25.7 mEq/L (21.0-31.0) 03/23/17 18:00 Anion Gap 9.2 (7.0-16.0) 03/23/17 18:00 BUN 22 mg/dL (7-25) 03/23/17 18:00 Creatinine 0.9 mg/dL (0.7-1.3) 03/23/17 18:00 Est GFR ( Amer) > 60.0 ml/min (>90) 03/23/17 18:00 Est GFR (Non-Af Amer) > 60.0 ml/min 03/23/17 18:00 BUN/Creatinine Ratio 24.4 03/23/17 18:00 Glucose 102 mg/dL (70-105) 03/23/17 18:00 POC Glucose 118 MG/DL (70 - 105) H 04/05/17 16:29 Calcium 9.3 mg/dL (8.6-10.3) 03/23/17 18:00 Magnesium 2.1 mg/dL (1.9-2.7) 03/23/17 18:00 Total Bilirubin 0.8 mg/dL (0.3-1.0) 03/23/17 18:00 AST 13 U/L (13-39) 03/23/17 18:00 ALT 5 U/L (7-52) L 03/23/17 18:00 Alkaline Phosphatase 65 U/L (34-104) 03/23/17 18:00 Total Protein 6.6 gm/dL (6.0-8.3) 03/23/17 18:00 Albumin 4.1 gm/dL (4.2-5.5) L 03/23/17 18:00 Globulin 2.5 gm/dL 03/23/17 18:00 Albumin/Globulin Ratio 1.6 (1.0-1.8) 03/23/17 18:00 Urine Source CLEAN C 03/23/17 18:20 Urine Color YELLOW 03/23/17 18:20 Urine Clarity CLEAR (CLEAR) 03/23/17 18:20 Urine pH 5.5 (4.6 - 8.0) 03/23/17 18:20 Ur Specific [place] >= 1.030 (1.005-1.030) 03/23/17 18:20 Urine Protein NEGATIVE mg/dL (NEGATIVE) 03/23/17 18:20 Urine Glucose (UA) NEGATIVE mg/dL (NEGATIVE) 03/23/17 18:20 Urine Ketones NEGATIVE mg/dL (NEGATIVE) 03/23/17 18:20 Urine Blood TRACE (NEGATIVE) 03/23/17 18:20 Urine Nitrate NEGATIVE (NEGATIVE) 03/23/17 18:20 Urine Bilirubin NEGATIVE (NEGATIVE) 03/23/17 18:20 Urine Urobilinogen 1.0 E.U./dL (0.2 - 1.0) 03/23/17 18:20 Ur Leukocyte Esterase NEGATIVE (NEGATIVE) 03/23/17 18:20 Urine RBC 2-5 /hpf (0-5) H 03/23/17 18:20 Urine WBC 0-2 /hpf (0-5) 03/23/17 18:20 Ur Epithelial Cells FEW /lpf (FEW) 03/23/17 18:20 Urine Bacteria OCCASIONAL /hpf (NONE SEEN) 03/23/17 18:20 - Physical Exam Vitals and I&O: Vital Signs Temp 98.2 F 04/05/17 14:00 Pulse 78 04/05/17 14:00 Resp 20 04/05/17 14:00 BP 114/75 04/05/17 14:00 Pulse Ox 97 04/05/17 14:00 Intake & Output 04/05/17 04/05/17 04/06/17 06:59 18:59 06:59 Intake Total 120 2400 Balance 120 2400 Intake: Oral 120 2400 Other: # Voids 3 4 # Bowel Movements 0 Active Medications: Current Medications Acetaminophen (Tylenol) 650 mg PO Q4HR PRN PRN Reason: Pain Stop: 05/22/17 22:48 Al Hydrox/Mg Hydrox/Simethicone (Maalox) 30 ml PO Q6H PRN PRN Reason: Dyspepsia Stop: 05/23/17 01:14 Aripiprazole (Abilify) 7.5 mg PO DAILY [facility] PRN Reason: Protocol Stop: 06/02/17 11:50 Last Admin: 04/05/17 08:42 Dose: 7.5 mg Cholecalciferol (Vitamin D3) 3,000 iu PO DAILY [facility] Stop: 05/23/17 08:59 Last Admin: 04/05/17 08:43 Dose: 3,000 iu Docusate Sodium (Colace) 100 mg PO BID [facility] Stop: 05/23/17 08:59 Last Admin: 04/05/17 16:26 Dose: 100 mg Donepezil HCl (Aricept) 10 mg PO HS [facility] Stop: 05/23/17 20:59 Last Admin: 04/04/17 20:39 Dose: 10 mg Escitalopram Oxalate (Lexapro) 20 mg PO DAILY [facility] Stop: 05/27/17 08:59 Last Admin: 04/05/17 08:41 Dose: 20 mg Lorazepam (Ativan) 0.5 mg PO Q6H PRN PRN Reason: Anxiety/Agitation Stop: 05/26/17 10:42 Magnesium Hydroxide (Milk Of Magnesia) 30 ml PO DAILY PRN PRN Reason: Constipation Stop: 05/22/17 22:48 Memantine (Namenda) 10 mg PO BID [facility] Stop: 05/23/17 08:59 Last Admin: 04/05/17 16:26 Dose: 10 mg Thiamine HCl (Vitamin B1) 100 mg PO DAILY [facility] Stop: 05/23/17 08:59 Last Admin: 04/05/17 08:41 Dose: 100 mg Timolol Maleate (Timoptic 0.5% Ophth Soln) 1 drop EACH EYE BID [facility] Stop: 05/23/17 08:59 Last Admin: 04/05/17 16:27 Dose: 1 drop Zolpidem Tartrate (Ambien) 5 mg PO HS PRN PRN Reason: Insomnia Stop: 05/23/17 01:14 Last Admin: 03/27/17 21:23 Dose: 5 mg General: Alert HEENT: Atraumatic, PERRLA, EOMI Neck: Supple, JVD Cardiovascular: Regular rate, Normal S1, Normal S2 Lungs: Clear to auscultation Abdomen: Bowel sounds, Soft Assessment/Plan - Assessment Assessment: 1. Dementia. 2. History of traumatic brain injury. 3. Diabetes mellitus type 2. 4. Anemia. 5. Glaucoma. - Plan Plan: cont current treatment Nutritional Asmnt/Malnutr-PDOC - Dietary Evaluation Malnutrition Findings (Please click <Entered> for more info): Nutritional Asmnt/Malnutrition Start: 03/28/17 12: 36 Text: Status: Complete Freq: Document 03/28/17 12:36 DIANA (Rec: 03/28/17 12:53 DIANA [email or web address]) Nutritional Asmnt/Malnutrition Patient General Information Nutritional Screening Moderate Risk Diagnosis psychosis, agitation Pertinent Medical Hx/Surgical Hx DM, traumatic brain injury, dementia, anemia, glaucoma Subjective Information Pt seen lying on bed in his room. Spoke to nurse, pt did not eat breakfast this morning . Visited again during lunch time, pt was eating burgers brought by his brother. Per note, PO intake 100%. YUNIOR Sun reported pt POC 90-100 WNL, considering regular diet. Current Diet Order/ Nutrition Support [facility] with HS snack Pertinent Medications Vit D3, Vit B1 Pertinent Labs 03/23 Na 135L, ALT 5 L, Alb 4. 1L, Glu 102 POC 92-101 Nutritional Hx/Data Height 1.65 m Height (Calculated Centimeters) 165.1 Current Weight (lbs) 75.296 kg Weight (Calculated Kilograms) 75.3 Weight (Calculated Grams) 88975.3 [place] Body Weight 136 % [place] Body Weight 122 Body Mass Index (BMI) 27.6 Weight Status Overweight GI Symptoms GI Symptoms None Last BM 03/27 Difficult in: None Food Allergies No Usual diet at home not able to obtain Skin Integrity/Comment: intact Current %PO Fair (50-74%) Estimated Nutritional Goals BEE in Kcals: Using Current wt Calories/Kcals/Kg 25-30 Kcals Calculated 1606-7459 Protein: Using Current wt Protein g/k.8-1 Protein Calculated 60-75 Fluid: ml 9984-8289 Nutritional Problem No current Nutrition Prob Problem N/A Malnutrition Alert Protein-Calorie Malnutrition N/A Is there a minimum of two criteria No selected? Query Text:Check all the applicable criteria. A minimum of two criteria are recommended for diagnosis of either severe or non-severe malnutrition. Intervention/Recommendation Comments 1. Recommended regular diet d/ t pt has normal glucose level. YUNIOR Sun will notify when MD is here this afternoon. 2. monitor wt weekly, glucose, skin integrity 3. F/U as moderate risk in 3-5 days, 03/31-04/02 Expected Outcomes/Goals Expected Outcomes/Goals 1. PO intake continue to meet 100% of nutritional needs 2. wt stability, skin to remain intact, glucose WNL
--- NOTE | 2017-04-06 07:57 | Progress Notes ---
DATE: 04/06/2017 SUBJECTIVE: The patient seen, chart reviewed, discussed with staff. The patient remains depressed, isolative, still labile. The patient originally came to the hospital, noted to be upset, angry, wanted to kill himself, highly irritable, suicidal. He was transferred due to suicidal ideations. The patient remains impulsive, unpredictable, still withdrawn, melancholic and sullen, guarded; however, about any SI. Noting these thoughts are dissipating. ASSESSMENT: The patient remains symptomatic, still depressed, withdrawn, but any SI is dissipating. PLAN: We will continue to monitor. Medications were reviewed. We will continue Abilify and Aricept and Lexapro. [facility]# [id number]
[2017-04-06] MEDS: Multivitamin w/ Minerals Tab PO SCH (08:54)
--- NOTE | 2017-04-06 10:19 | General Progress Note ---
Subjective - Review of Systems Service Date: 04/06/17 Subjective: resting comfortably no distress Objective - Results Result Diagrams: 03/23/17 18:00 03/23/17 18:00 Recent Labs: Laboratory Last Values WBC 5.6 Th/cmm (4.8-10.8) 03/23/17 18:00 RBC 4.76 Mil/cmm (3.80-5.80) 03/23/17 18:00 Hgb 14.6 gm/dL (12-16) 03/23/17 18:00 Hct 43.0 % (41.0-60) 03/23/17 18:00 MCV 90.4 fl (80-99) 03/23/17 18:00 MCH 30.7 pg (27.0-31.0) 03/23/17 18:00 MCHC Differential 33.9 pg (28.0-36.0) 03/23/17 18:00 RDW 12.7 % (11.5-20.0) 03/23/17 18:00 Plt Count 162 Th/cmm (150-400) 03/23/17 18:00 MPV 8.4 fl 03/23/17 18:00 Neutrophils % 73.7 % (40.0-80.0) 03/23/17 18:00 Lymphocytes % 17.4 % (20.0-50.0) L 03/23/17 18:00 Monocytes % 6.8 % (2.0-10.0) 03/23/17 18:00 Eosinophils % 1.8 % (0.0-5.0) 03/23/17 18:00 Basophils % 0.3 % (0.0-2.0) 03/23/17 18:00 Sodium 135 mEq/L (136-145) L 03/23/17 18:00 Potassium 3.9 mEq/L (3.5-5.1) 03/23/17 18:00 Chloride 104 mEq/L (98-107) 03/23/17 18:00 Carbon Dioxide 25.7 mEq/L (21.0-31.0) 03/23/17 18:00 Anion Gap 9.2 (7.0-16.0) 03/23/17 18:00 BUN 22 mg/dL (7-25) 03/23/17 18:00 Creatinine 0.9 mg/dL (0.7-1.3) 03/23/17 18:00 Est GFR ( Amer) > 60.0 ml/min (>90) 03/23/17 18:00 Est GFR (Non-Af Amer) > 60.0 ml/min 03/23/17 18:00 BUN/Creatinine Ratio 24.4 03/23/17 18:00 Glucose 102 mg/dL (70-105) 03/23/17 18:00 POC Glucose 93 MG/DL (70 - 105) 04/06/17 06:27 Calcium 9.3 mg/dL (8.6-10.3) 03/23/17 18:00 Magnesium 2.1 mg/dL (1.9-2.7) 03/23/17 18:00 Total Bilirubin 0.8 mg/dL (0.3-1.0) 03/23/17 18:00 AST 13 U/L (13-39) 03/23/17 18:00 ALT 5 U/L (7-52) L 03/23/17 18:00 Alkaline Phosphatase 65 U/L (34-104) 03/23/17 18:00 Total Protein 6.6 gm/dL (6.0-8.3) 03/23/17 18:00 Albumin 4.1 gm/dL (4.2-5.5) L 03/23/17 18:00 Globulin 2.5 gm/dL 03/23/17 18:00 Albumin/Globulin Ratio 1.6 (1.0-1.8) 03/23/17 18:00 Urine Source CLEAN C 03/23/17 18:20 Urine Color YELLOW 03/23/17 18:20 Urine Clarity CLEAR (CLEAR) 03/23/17 18:20 Urine pH 5.5 (4.6 - 8.0) 03/23/17 18:20 Ur Specific [place] >= 1.030 (1.005-1.030) 03/23/17 18:20 Urine Protein NEGATIVE mg/dL (NEGATIVE) 03/23/17 18:20 Urine Glucose (UA) NEGATIVE mg/dL (NEGATIVE) 03/23/17 18:20 Urine Ketones NEGATIVE mg/dL (NEGATIVE) 03/23/17 18:20 Urine Blood TRACE (NEGATIVE) 03/23/17 18:20 Urine Nitrate NEGATIVE (NEGATIVE) 03/23/17 18:20 Urine Bilirubin NEGATIVE (NEGATIVE) 03/23/17 18:20 Urine Urobilinogen 1.0 E.U./dL (0.2 - 1.0) 03/23/17 18:20 Ur Leukocyte Esterase NEGATIVE (NEGATIVE) 03/23/17 18:20 Urine RBC 2-5 /hpf (0-5) H 03/23/17 18:20 Urine WBC 0-2 /hpf (0-5) 03/23/17 18:20 Ur Epithelial Cells FEW /lpf (FEW) 03/23/17 18:20 Urine Bacteria OCCASIONAL /hpf (NONE SEEN) 03/23/17 18:20 - Physical Exam Vitals and I&O: Vital Signs Temp 97.1 F 04/06/17 06:33 Pulse 89 04/06/17 06:33 Resp 20 04/06/17 06:33 BP 140/79 04/06/17 06:33 Pulse Ox 97 04/06/17 06:33 Intake & Output 04/05/17 04/06/17 04/06/17 18:59 06:59 18:59 Intake Total 2400 120 Balance 2400 120 Intake: Oral 2400 120 Other: # Voids 4 3 # Bowel Movements 0 Active Medications: Current Medications Acetaminophen (Tylenol) 650 mg PO Q4HR PRN PRN Reason: Pain Stop: 05/22/17 22:48 Al Hydrox/Mg Hydrox/Simethicone (Maalox) 30 ml PO Q6H PRN PRN Reason: Dyspepsia Stop: 05/23/17 01:14 Aripiprazole (Abilify) 7.5 mg PO DAILY [facility] PRN Reason: Protocol Stop: 06/02/17 11:50 Last Admin: 04/06/17 08:53 Dose: 7.5 mg Cholecalciferol (Vitamin D3) 3,000 iu PO DAILY [facility] Stop: 05/23/17 08:59 Last Admin: 04/06/17 08:53 Dose: 3,000 iu Docusate Sodium (Colace) 100 mg PO BID [facility] Stop: 05/23/17 08:59 Last Admin: 04/06/17 08:54 Dose: 100 mg Donepezil HCl (Aricept) 10 mg PO HS [facility] Stop: 05/23/17 20:59 Last Admin: 04/05/17 21:09 Dose: 10 mg Escitalopram Oxalate (Lexapro) 20 mg PO DAILY [facility] Stop: 05/27/17 08:59 Last Admin: 04/06/17 08:54 Dose: 20 mg Lorazepam (Ativan) 0.5 mg PO Q6H PRN PRN Reason: Anxiety/Agitation Stop: 05/26/17 10:42 Magnesium Hydroxide (Milk Of Magnesia) 30 ml PO DAILY [facility] PRN Reason: Constipation Stop: 05/22/17 22:48 Memantine (Namenda) 10 mg PO BID [facility] Stop: 05/23/17 08:59 Last Admin: 04/06/17 08:54 Dose: 10 mg Thiamine HCl (Vitamin B1) 100 mg PO DAILY [facility] Stop: 05/23/17 08:59 Last Admin: 04/06/17 08:53 Dose: 100 mg Timolol Maleate (Timoptic 0.5% Ophth Soln) 1 drop EACH EYE BID [facility] Stop: 05/23/17 08:59 Last Admin: 04/06/17 08:58 Dose: 1 drop Zolpidem Tartrate (Ambien) 5 mg PO HS PRN PRN Reason: Insomnia Stop: 05/23/17 01:14 Last Admin: 03/27/17 21:23 Dose: 5 mg General: Alert HEENT: Atraumatic, PERRLA, EOMI Neck: Supple, JVD Cardiovascular: Regular rate, Normal S1, Normal S2 Lungs: Clear to auscultation Abdomen: Bowel sounds, Soft Assessment/Plan - Assessment Assessment: 1. Dementia. 2. History of traumatic brain injury. 3. Diabetes mellitus type 2. 4. Anemia. 5. Glaucoma. - Plan Plan: cont current treatment Nutritional Asmnt/Malnutr-PDOC - Dietary Evaluation Malnutrition Findings (Please click <Entered> for more info): Nutritional Asmnt/Malnutrition Start: 03/28/17 12: 36 Text: Status: Complete Freq: Document 03/28/17 12:36 DIANA (Rec: 03/28/17 12:53 DIANA [email or web address]) Nutritional Asmnt/Malnutrition Patient General Information Nutritional Screening Moderate Risk Diagnosis psychosis, agitation Pertinent Medical Hx/Surgical Hx DM, traumatic brain injury, dementia, anemia, glaucoma Subjective Information Pt seen lying on bed in his room. Spoke to nurse, pt did not eat breakfast this morning . Visited again during lunch time, pt was eating burgers brought by his brother. Per note, PO intake 100%. YUNIOR Sun reported pt POC 90-100 WNL, considering regular diet. Current Diet Order/ Nutrition Support CCHO with HS snack Pertinent Medications Vit D3, Vit B1 Pertinent Labs 03/23 Na 135L, ALT 5 L, Alb 4. 1L, Glu 102 POC 92-101 Nutritional Hx/Data Height 1.65 m Height (Calculated Centimeters) 165.1 Current Weight (lbs) 75.296 kg Weight (Calculated Kilograms) 75.3 Weight (Calculated Grams) 27553.3 [place] Body Weight 136 % [place] Body Weight 122 Body Mass Index (BMI) 27.6 Weight Status Overweight GI Symptoms GI Symptoms None Last BM 03/27 Difficult in: None Food Allergies No Usual diet at home not able to obtain Skin Integrity/Comment: intact Current %PO Fair (50-74%) Estimated Nutritional Goals BEE in Kcals: Using Current wt Calories/Kcals/Kg 25-30 Kcals Calculated 0505-8857 Protein: Using Current wt Protein g/k.8-1 Protein Calculated 60-75 Fluid: ml [id number] Nutritional Problem No current Nutrition Prob Problem N/A Malnutrition Alert Protein-Calorie Malnutrition N/A Is there a minimum of two criteria No selected? Query Text:Check all the applicable criteria. A minimum of two criteria are recommended for diagnosis of either severe or non-severe malnutrition. Intervention/Recommendation Comments 1. Recommended regular diet d/ t pt has normal glucose level. YUNIOR Sun will notify when MD is here this afternoon. 2. monitor wt weekly, glucose, skin integrity 3. F/U as moderate risk in 3-5 days, 03/31-04/02 Expected Outcomes/Goals Expected Outcomes/Goals 1. PO intake continue to meet 100% of nutritional needs 2. wt stability, skin to remain intact, glucose WNL
[2017-04-07] MEDS: Multivitamin w/ Minerals Tab PO SCH (08:19)
--- NOTE | 2017-04-07 16:13 | General Progress Note ---
Subjective - Review of Systems Service Date: 04/07/17 Subjective: resting comfortably no distress Objective - Results Result Diagrams: 03/23/17 18:00 03/23/17 18:00 Recent Labs: Laboratory Last Values WBC 5.6 Th/cmm (4.8-10.8) 03/23/17 18:00 RBC 4.76 Mil/cmm (3.80-5.80) 03/23/17 18:00 Hgb 14.6 gm/dL (12-16) 03/23/17 18:00 Hct 43.0 % (41.0-60) 03/23/17 18:00 MCV 90.4 fl (80-99) 03/23/17 18:00 MCH 30.7 pg (27.0-31.0) 03/23/17 18:00 MCHC Differential 33.9 pg (28.0-36.0) 03/23/17 18:00 RDW 12.7 % (11.5-20.0) 03/23/17 18:00 Plt Count 162 Th/cmm (150-400) 03/23/17 18:00 MPV 8.4 fl 03/23/17 18:00 Neutrophils % 73.7 % (40.0-80.0) 03/23/17 18:00 Lymphocytes % 17.4 % (20.0-50.0) L 03/23/17 18:00 Monocytes % 6.8 % (2.0-10.0) 03/23/17 18:00 Eosinophils % 1.8 % (0.0-5.0) 03/23/17 18:00 Basophils % 0.3 % (0.0-2.0) 03/23/17 18:00 Sodium 135 mEq/L (136-145) L 03/23/17 18:00 Potassium 3.9 mEq/L (3.5-5.1) 03/23/17 18:00 Chloride 104 mEq/L (98-107) 03/23/17 18:00 Carbon Dioxide 25.7 mEq/L (21.0-31.0) 03/23/17 18:00 Anion Gap 9.2 (7.0-16.0) 03/23/17 18:00 BUN 22 mg/dL (7-25) 03/23/17 18:00 Creatinine 0.9 mg/dL (0.7-1.3) 03/23/17 18:00 Est GFR ( Amer) > 60.0 ml/min (>90) 03/23/17 18:00 Est GFR (Non-Af Amer) > 60.0 ml/min 03/23/17 18:00 BUN/Creatinine Ratio 24.4 03/23/17 18:00 Glucose 102 mg/dL (70-105) 03/23/17 18:00 POC Glucose 93 MG/DL (70 - 105) 04/07/17 11:37 Calcium 9.3 mg/dL (8.6-10.3) 03/23/17 18:00 Magnesium 2.1 mg/dL (1.9-2.7) 03/23/17 18:00 Total Bilirubin 0.8 mg/dL (0.3-1.0) 03/23/17 18:00 AST 13 U/L (13-39) 03/23/17 18:00 ALT 5 U/L (7-52) L 03/23/17 18:00 Alkaline Phosphatase 65 U/L (34-104) 03/23/17 18:00 Total Protein 6.6 gm/dL (6.0-8.3) 03/23/17 18:00 Albumin 4.1 gm/dL (4.2-5.5) L 03/23/17 18:00 Globulin 2.5 gm/dL 03/23/17 18:00 Albumin/Globulin Ratio 1.6 (1.0-1.8) 03/23/17 18:00 Urine Source CLEAN C 03/23/17 18:20 Urine Color YELLOW 03/23/17 18:20 Urine Clarity CLEAR (CLEAR) 03/23/17 18:20 Urine pH 5.5 (4.6 - 8.0) 03/23/17 18:20 Ur Specific [place] >= 1.030 (1.005-1.030) 03/23/17 18:20 Urine Protein NEGATIVE mg/dL (NEGATIVE) 03/23/17 18:20 Urine Glucose (UA) NEGATIVE mg/dL (NEGATIVE) 03/23/17 18:20 Urine Ketones NEGATIVE mg/dL (NEGATIVE) 03/23/17 18:20 Urine Blood TRACE (NEGATIVE) 03/23/17 18:20 Urine Nitrate NEGATIVE (NEGATIVE) 03/23/17 18:20 Urine Bilirubin NEGATIVE (NEGATIVE) 03/23/17 18:20 Urine Urobilinogen 1.0 E.U./dL (0.2 - 1.0) 03/23/17 18:20 Ur Leukocyte Esterase NEGATIVE (NEGATIVE) 03/23/17 18:20 Urine RBC 2-5 /hpf (0-5) H 03/23/17 18:20 Urine WBC 0-2 /hpf (0-5) 03/23/17 18:20 Ur Epithelial Cells FEW /lpf (FEW) 03/23/17 18:20 Urine Bacteria OCCASIONAL /hpf (NONE SEEN) 03/23/17 18:20 - Physical Exam Vitals and I&O: Vital Signs Temp 98.1 F 04/07/17 16:10 Pulse 66 04/07/17 16:10 Resp 20 04/07/17 16:10 BP 125/77 04/07/17 16:10 Pulse Ox 96 04/07/17 16:10 Intake & Output 04/06/17 04/07/17 04/07/17 18:59 06:59 18:59 Intake Total 1100 Balance 1100 Intake: Oral 1100 Other: # Voids 4 # Bowel Movements 1 Active Medications: Current Medications Acetaminophen (Tylenol) 650 mg PO Q4HR PRN PRN Reason: Pain Stop: 05/22/17 22:48 Al Hydrox/Mg Hydrox/Simethicone (Maalox) 30 ml PO Q6H PRN PRN Reason: Dyspepsia Stop: 05/23/17 01:14 Aripiprazole (Abilify) 7.5 mg PO DAILY [facility] PRN Reason: Protocol Stop: 06/02/17 11:50 Last Admin: 04/07/17 08:18 Dose: 7.5 mg Cholecalciferol (Vitamin D3) 3,000 iu PO DAILY [facility] Stop: 05/23/17 08:59 Last Admin: 04/07/17 08:17 Dose: 3,000 iu Docusate Sodium (Colace) 100 mg PO BID [facility] Stop: 05/23/17 08:59 Last Admin: 04/07/17 08:19 Dose: 100 mg Donepezil HCl (Aricept) 10 mg PO HS [facility] Stop: 05/23/17 20:59 Last Admin: 04/06/17 21:48 Dose: 10 mg Escitalopram Oxalate (Lexapro) 20 mg PO DAILY [facility] Stop: 05/27/17 08:59 Last Admin: 04/07/17 08:19 Dose: 20 mg Lorazepam (Ativan) 0.5 mg PO Q6H PRN PRN Reason: Anxiety/Agitation Stop: 05/26/17 10:42 Magnesium Hydroxide (Milk Of Magnesia) 30 ml PO DAILY PRN PRN Reason: Constipation Stop: 05/22/17 22:48 Memantine (Namenda) 10 mg PO BID [facility] Stop: 05/23/17 08:59 Last Admin: 04/07/17 08:19 Dose: 10 mg Thiamine HCl (Vitamin B1) 100 mg PO DAILY [facility] Stop: 05/23/17 08:59 Last Admin: 04/07/17 08:19 Dose: 100 mg Timolol Maleate (Timoptic 0.5% Ophth Soln) 1 drop EACH EYE BID [facility] Stop: 05/23/17 08:59 Last Admin: 04/07/17 10:14 Dose: 1 drop General: Alert HEENT: Atraumatic, PERRLA, EOMI Neck: Supple, JVD Cardiovascular: Regular rate, Normal S1, Normal S2 Lungs: Clear to auscultation Abdomen: Bowel sounds, Soft Assessment/Plan - Assessment Assessment: 1. Dementia. 2. History of traumatic brain injury. 3. Diabetes mellitus type 2. 4. Anemia. 5. Glaucoma. - Plan Plan: cont current treatment Nutritional Asmnt/Malnutr-PDOC - Dietary Evaluation Malnutrition Findings (Please click <Entered> for more info): Nutritional Asmnt/Malnutrition Start: 03/28/17 12: 36 Text: Status: Complete Freq: Document 03/28/17 12:36 LCHENG (Rec: 03/28/17 12:53 LCHENG [email or web address]) Nutritional Asmnt/Malnutrition Patient General Information Nutritional Screening Moderate Risk Diagnosis psychosis, agitation Pertinent Medical Hx/Surgical Hx DM, traumatic brain injury, dementia, anemia, glaucoma Subjective Information Pt seen lying on bed in his room. Spoke to nurse, pt did not eat breakfast this morning . Visited again during lunch time, pt was eating burgers brought by his brother. Per note, PO intake 100%. YUINOR Sun reported pt POC 90-100 WNL, considering regular diet. Current Diet Order/ [facility] Pertinent Medications Vit D3, Vit B1 Pertinent Labs 03/23 Na 135L, ALT 5 L, Alb 4. 1L, Glu 102 POC 92-101 Nutritional Hx/Data Height 1.65 m Height (Calculated Centimeters) 165.1 Current Weight (lbs) 75.296 kg Weight (Calculated Kilograms) 75.3 Weight (Calculated Grams) 22798.3 [place] Body Weight 136 % [place] Body Weight 122 Body Mass Index (BMI) 27.6 Weight Status Overweight GI Symptoms GI Symptoms None Last BM 03/27 Difficult in: None Food Allergies No Usual diet at home not able to obtain Skin Integrity/Comment: intact Current %PO Fair (50-74%) Estimated Nutritional Goals BEE in Kcals: Using Current wt Calories/Kcals/Kg 25-30 Kcals Calculated Protein: Using Current wt Protein g/k.8-1 Protein Calculated 60-75 Fluid: ml Nutritional Problem No current Nutrition Prob Problem N/A Malnutrition Alert Protein-Calorie Malnutrition N/A Is there a minimum of two criteria No selected? Query Text:Check all the applicable criteria. A minimum of two criteria are recommended for diagnosis of either severe or non-severe malnutrition. Intervention/Recommendation Comments 1. Recommended regular diet d/ t pt has normal glucose level. YUNIOR Sun will notify when MD is here this afternoon. 2. monitor wt weekly, glucose, skin integrity 3. F/U as moderate risk in 3-5 days, 03/31-04/02 Expected Outcomes/Goals Expected Outcomes/Goals 1. PO intake continue to meet 100% of nutritional needs 2. wt stability, skin to remain intact, glucose WNL
[2017-04-08] MEDS: Multivitamin w/ Minerals Tab PO SCH (08:12)
--- NOTE | 2017-04-08 13:00 | Progress Notes ---
DATE: 04/07/2017 SUBJECTIVE: The patient was seen and evaluated. The patient's chart reviewed. This is an issue of psychiatric followup, now covering for Dr. Shah. Overnight nursing staff reported that the patient is very guarded, minimizing, disengaged. Today on [id number] evaluation, the patient is withdrawn, easily irritable. He came initially after he was noted upset and wanted to kill himself. He is very guarded and minimizing in regard to the emotions leading up to the hospitalization. MENTAL STATUS EXAMINATION: Continues to be very withdrawn, unpredictable, melancholic and still very extremely guarded. ASSESSMENT AND PLAN: The patient continues to be ____, very distraught, anxious, still depressed and guarded. In regard to his Abilify, in the meantime we will continue with Abilify and Aricept as in the past. The patient had good efficacy on the medication without any side effects. [facility]# [id number]
--- NOTE | 2017-04-08 19:50 | General Progress Note ---
Subjective - Review of Systems Service Date: 04/08/17 Subjective: resting comfortably no distress Objective - Results Result Diagrams: 03/23/17 18:00 03/23/17 18:00 Recent Labs: Laboratory Last Values WBC 5.6 Th/cmm (4.8-10.8) 03/23/17 18:00 RBC 4.76 Mil/cmm (3.80-5.80) 03/23/17 18:00 Hgb 14.6 gm/dL (12-16) 03/23/17 18:00 Hct 43.0 % (41.0-60) 03/23/17 18:00 MCV 90.4 fl (80-99) 03/23/17 18:00 MCH 30.7 pg (27.0-31.0) 03/23/17 18:00 MCHC Differential 33.9 pg (28.0-36.0) 03/23/17 18:00 RDW 12.7 % (11.5-20.0) 03/23/17 18:00 Plt Count 162 Th/cmm (150-400) 03/23/17 18:00 MPV 8.4 fl 03/23/17 18:00 Neutrophils % 73.7 % (40.0-80.0) 03/23/17 18:00 Lymphocytes % 17.4 % (20.0-50.0) L 03/23/17 18:00 Monocytes % 6.8 % (2.0-10.0) 03/23/17 18:00 Eosinophils % 1.8 % (0.0-5.0) 03/23/17 18:00 Basophils % 0.3 % (0.0-2.0) 03/23/17 18:00 Sodium 135 mEq/L (136-145) L 03/23/17 18:00 Potassium 3.9 mEq/L (3.5-5.1) 03/23/17 18:00 Chloride 104 mEq/L (98-107) 03/23/17 18:00 Carbon Dioxide 25.7 mEq/L (21.0-31.0) 03/23/17 18:00 Anion Gap 9.2 (7.0-16.0) 03/23/17 18:00 BUN 22 mg/dL (7-25) 03/23/17 18:00 Creatinine 0.9 mg/dL (0.7-1.3) 03/23/17 18:00 Est GFR ( Amer) > 60.0 ml/min (>90) 03/23/17 18:00 Est GFR (Non-Af Amer) > 60.0 ml/min 03/23/17 18:00 BUN/Creatinine Ratio 24.4 03/23/17 18:00 Glucose 102 mg/dL (70-105) 03/23/17 18:00 POC Glucose 92 MG/DL (70 - 105) 04/08/17 05:48 Calcium 9.3 mg/dL (8.6-10.3) 03/23/17 18:00 Magnesium 2.1 mg/dL (1.9-2.7) 03/23/17 18:00 Total Bilirubin 0.8 mg/dL (0.3-1.0) 03/23/17 18:00 AST 13 U/L (13-39) 03/23/17 18:00 ALT 5 U/L (7-52) L 03/23/17 18:00 Alkaline Phosphatase 65 U/L (34-104) 03/23/17 18:00 Total Protein 6.6 gm/dL (6.0-8.3) 03/23/17 18:00 Albumin 4.1 gm/dL (4.2-5.5) L 03/23/17 18:00 Globulin 2.5 gm/dL 03/23/17 18:00 Albumin/Globulin Ratio 1.6 (1.0-1.8) 03/23/17 18:00 Urine Source CLEAN C 03/23/17 18:20 Urine Color YELLOW 03/23/17 18:20 Urine Clarity CLEAR (CLEAR) 03/23/17 18:20 Urine pH 5.5 (4.6 - 8.0) 03/23/17 18:20 Ur Specific [place] >= 1.030 (1.005-1.030) 03/23/17 18:20 Urine Protein NEGATIVE mg/dL (NEGATIVE) 03/23/17 18:20 Urine Glucose (UA) NEGATIVE mg/dL (NEGATIVE) 03/23/17 18:20 Urine Ketones NEGATIVE mg/dL (NEGATIVE) 03/23/17 18:20 Urine Blood TRACE (NEGATIVE) 03/23/17 18:20 Urine Nitrate NEGATIVE (NEGATIVE) 03/23/17 18:20 Urine Bilirubin NEGATIVE (NEGATIVE) 03/23/17 18:20 Urine Urobilinogen 1.0 E.U./dL (0.2 - 1.0) 03/23/17 18:20 Ur Leukocyte Esterase NEGATIVE (NEGATIVE) 03/23/17 18:20 Urine RBC 2-5 /hpf (0-5) H 03/23/17 18:20 Urine WBC 0-2 /hpf (0-5) 03/23/17 18:20 Ur Epithelial Cells FEW /lpf (FEW) 03/23/17 18:20 Urine Bacteria OCCASIONAL /hpf (NONE SEEN) 03/23/17 18:20 - Physical Exam Vitals and I&O: Vital Signs Temp 98.2 F 04/08/17 15:38 Pulse 74 04/08/17 15:38 Resp 18 04/08/17 15:38 BP 108/76 04/08/17 15:38 Pulse Ox 97 04/08/17 15:38 Intake & Output 04/08/17 04/08/17 04/09/17 06:59 18:59 06:59 Intake Total 480 1200 Balance 480 1200 Intake: Oral 480 1200 Other: # Voids 2 4 # Bowel Movements 1 Stool Characteristics Soft Formed Active Medications: Current Medications Acetaminophen (Tylenol) 650 mg PO Q4HR PRN PRN Reason: Pain Stop: 05/22/17 22:48 Al Hydrox/Mg Hydrox/Simethicone (Maalox) 30 ml PO Q6H PRN PRN Reason: Dyspepsia Stop: 05/23/17 01:14 Aripiprazole (Abilify) 7.5 mg PO DAILY [facility] PRN Reason: Protocol Stop: 06/02/17 11:50 Last Admin: 04/08/17 08:12 Dose: 7.5 mg Cholecalciferol (Vitamin D3) 3,000 iu PO DAILY [facility] Stop: 05/23/17 08:59 Last Admin: 04/08/17 08:12 Dose: 3,000 iu Docusate Sodium (Colace) 100 mg PO BID [facility] Stop: 05/23/17 08:59 Last Admin: 04/08/17 16:28 Dose: 100 mg Donepezil HCl (Aricept) 10 mg PO HS [facility] Stop: 05/23/17 20:59 Last Admin: 04/07/17 20:29 Dose: 10 mg Escitalopram Oxalate (Lexapro) 20 mg PO DAILY [facility] Stop: 05/27/17 08:59 Last Admin: 04/08/17 08:12 Dose: 20 mg Lorazepam (Ativan) 0.5 mg PO Q6H PRN PRN Reason: Anxiety/Agitation Stop: 05/26/17 10:42 Magnesium Hydroxide (Milk Of Magnesia) 30 ml PO DAILY [facility] PRN Reason: Constipation Stop: 05/22/17 22:48 Memantine (Namenda) 10 mg PO BID [facility] Stop: 05/23/17 08:59 Last Admin: 04/08/17 16:28 Dose: 10 mg Thiamine HCl (Vitamin B1) 100 mg PO DAILY [facility] Stop: 05/23/17 08:59 Last Admin: 04/08/17 08:12 Dose: 100 mg Timolol Maleate (Timoptic 0.5% Ophth Soln) 1 drop EACH EYE BID [facility] Stop: 05/23/17 08:59 Last Admin: 04/08/17 16:29 Dose: 1 drop General: Alert HEENT: Atraumatic, PERRLA, EOMI Neck: Supple, JVD Cardiovascular: Regular rate, Normal S1, Normal S2 Lungs: Clear to auscultation Abdomen: Bowel sounds, Soft Assessment/Plan - Assessment Assessment: 1. Dementia. 2. History of traumatic brain injury. 3. Diabetes mellitus type 2. 4. Anemia. 5. Glaucoma. - Plan Plan: cont current treatment Nutritional Asmnt/Malnutr-PDOC - Dietary Evaluation Malnutrition Findings (Please click <Entered> for more info): Nutritional Asmnt/Malnutrition Start: 03/28/17 12: 36 Text: Status: Complete Freq: Document 03/28/17 12:36 LCHENG (Rec: 03/28/17 12:53 LCHENG [email or web address]) Nutritional Asmnt/Malnutrition Patient General Information Nutritional Screening Moderate Risk Diagnosis psychosis, agitation Pertinent Medical Hx/Surgical Hx DM, traumatic brain injury, dementia, anemia, glaucoma Subjective Information Pt seen lying on bed in his room. Spoke to nurse, pt did not eat breakfast this morning . Visited again during lunch time, pt was eating burgers brought by his brother. Per note, PO intake 100%. YUNIOR Sun reported pt POC 90-100 WNL, considering regular diet. Current Diet Order/ Nutrition Support [facility] with HS snack Pertinent Medications Vit D3, Vit B1 Pertinent Labs 03/23 Na 135L, ALT 5 L, Alb 4. 1L, Glu 102 POC 92-101 Nutritional Hx/Data Height 1.65 m Height (Calculated Centimeters) 165.1 Current Weight (lbs) 75.296 kg Weight (Calculated Kilograms) 75.3 Weight (Calculated Grams) 25342.3 [place] Body Weight 136 % [place] Body Weight 122 Body Mass Index (BMI) 27.6 Weight Status Overweight GI Symptoms GI Symptoms None Last BM 03/27 Difficult in: None Food Allergies No Usual diet at home not able to obtain Skin Integrity/Comment: intact Current %PO Fair (50-74%) Estimated Nutritional Goals BEE in Kcals: Using Current wt Calories/Kcals/Kg 25-30 Kcals Calculated Protein: Using Current wt Protein g/k.8-1 Protein Calculated 60-75 Fluid: ml Nutritional Problem No current Nutrition Prob Problem N/A Malnutrition Alert Protein-Calorie Malnutrition N/A Is there a minimum of two criteria No selected? Query Text:Check all the applicable criteria. A minimum of two criteria are recommended for diagnosis of either severe or non-severe malnutrition. Intervention/Recommendation Comments 1. Recommended regular diet d/ t pt has normal glucose level. RN Corinne will notify when MD is here this afternoon. 2. monitor wt weekly, glucose, skin integrity 3. F/U as moderate risk in 3-5 days, 03/31-04/02 Expected Outcomes/Goals Expected Outcomes/Goals 1. PO intake continue to meet 100% of nutritional needs 2. wt stability, skin to remain intact, glucose WNL
--- NOTE | 2017-04-09 06:36 | Progress Notes ---
DATE: 04/08/2017 The patient was seen and evaluated. The patient's chart reviewed. Overnight, nursing staff reported that the patient has been withdrawn, isolative. Today on [id number] evaluation, the patient presents very guarded, minimizing with extremely poor historian, distraught, no side effects of the medications noted by the patient. MENTAL STATUS EXAMINATION: Distraught, overwhelmed, very unpredictable, withdrawn, melancholic and sullen, extremely guarded. Poor insight, judgment and impulse control. ASSESSMENT AND PLAN: The patient is a 66-year-old male who still presents very melancholic disengaged, sullen, unable to formulate a safe plan. We will continue with the current medication regimen. Medication reaching steady state which include Abilify, Aricept and Lexapro to target the patient's severe melancholic state. JOB# [id number]
[2017-04-09] MEDS: Multivitamin w/ Minerals Tab PO SCH (08:46)
--- NOTE | 2017-04-09 19:46 | Discharge Summary ---
DATE OF DISCHARGE: 04/09/2017 IDENTIFYING INFORMATION: The patient is a 66-year-old male. CHIEF COMPLAINT: "I wanted to harm myself." HISTORY OF PRESENT ILLNESS: The patient was seen by me at [facility]. He was upset, angry. He was suicidal. He said he would find a way to kill himself. He is being easily agitated, irritable. The patient has multiple prior admissions to this facility with history of prior suicide attempt. The patient also is demented has been on Aricept and Namenda. He is on Depakote and Lexapro 20 mg a day, Namenda 10 mg twice a day. COURSE IN THE HOSPITAL: The patient was given the Lexapro because of severe depression, I added Abilify started on 2 mg a day, increased to 5 mg a day. The patient was continued on Aricept 10 mg at bedtime. The patient was continued on Namenda 10 mg twice a day, multivitamin, thiamine. The patient progressively got better. I did increase Abilify 7.5 mg a day and he get much better, was sleeping well, eating well, interacting well with the patient. No suicidal ideation, no homicidal ideation, no paranoia, so felt he was ready to go to a lesser level of care. FINAL DIAGNOSIS: Major depression, recurrent, severe with no psychosis. MEDICAL DIAGNOSIS: As per medical doctor. The patient will be going back to [place], will follow up with Dr. Morse and me. EXPECTED OUTCOME: Stable if the patient complies with the above. [facility]# [id number]
== END 2017-04-09 13:45 | disposition home or self-care (01) | DRG 885 ==
LOC: ER 17:39 → GERO 20:00
PROVIDERS: ADMIT Psychiatry & Neurology Psychiatry; ATTEND Psychiatry & Neurology Psychiatry
DX: F33.2 Major depressive disorder, recurrent severe without psychotic features (principal); F03.91 Unspecified dementia, unspecified severity, with behavioral disturbance; R45.851 Suicidal ideations; F29 Unspecified psychosis not due to a substance or known physiological condition; E11.9 Type 2 diabetes mellitus without complications; D64.9 Anemia, unspecified; H40.9 Unspecified glaucoma; M19.011 Primary osteoarthritis, right shoulder; Z87.820 Personal history of traumatic brain injury; Z88.6 Allergy status to analgesic agent
CPT/HCPCS: 36415-UA; 80053-TC; 81001-TC; 82948-90; 83735-TC; 85025-TC; 90899; 93005; G0410; Z7610

== ENCOUNTER 2018-12-19 20:08 | Inpatient (IN) | payer MEDICARE, MEDICAID ==
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
[2018-12-19 20:56] LABS: URINE SOURCE CLEAN C
[2018-12-19 20:58] LABS: URINE BILIRUBIN NEGATIVE (NEGATIVE); URINE BLOOD TRACE (NEGATIVE); URINE GLUCOSE (UA) NEGATIVE (NEGATIVE); URINE KETONE NEGATIVE (NEGATIVE); URINE LEUKOCYTE ESTERASE NEGATIVE (NEGATIVE); URINE MICROSCOPIC INDICATED? YES; URINE NITRATE NEGATIVE (NEGATIVE); URINE PROTEIN NEGATIVE (NEGATIVE); URINE UROBILINOGEN 0.2 E.U./dL (0.2 - 1.0)
[2018-12-19 20:59] LABS: % BASOPHILS 0.5 % (0.0-2.0); % EOSINOPHILS 2.4 % (0.0-5.0); % LYMPHOCYTES 23.7 % (20.0-50.0); % MONOCYTES 8.4 % (2.0-10.0); EOSINOPHILE ABSOLUTE 0.1 Th/cmm (0.1-0.4); HEMATOCRIT 39.7 % (41.0-60); HEMOGLOBIN 13.4 gm/dL (12-16); LYMPHOCYTE ABSOLUTE 1.3 Th/cmm (1.5-3.0); MEAN CELL VOLUME 87.5 fl (80-99); MEAN CORPUSCULAR HEMOGLOBIN 29.5 pg (27.0-31.0); MEAN CORPUSCULAR HGB CONC 33.8 pg (28.0-36.0); MONOCYTE ABSOLUTE 0.4 Th/cmm (0.3-1.0); NEUTROPHILE ABSOLUTE 3.5 Th/cmm (1.8-8.0); PLATELET COUNT 187 Th/cmm (150-400); RED BLOOD COUNT 4.54 Mil/cmm (3.80-5.80); RED CELL DISTRIBUTION WIDTH 13.6 % (11.5-20.0); WHITE BLOOD COUNT 5.3 Th/cmm (4.8-10.8)
[2018-12-19 21:04] LABS: ALB/GLOB RATIO 1.6 (1.0-1.8); ALKALINE PHOSPHATASE 86 U/L (34-104); ANION GAP 11.1 (7.0-16.0); BILIRUBIN,TOTAL 0.8 mg/dL (0.3-1.0); BUN - UREA NITROGEN 21 mg/dL (7-25); CALCIUM SERUM 9.2 mg/dL (8.6-10.3); CHLORIDE 104 mEq/L (98-107); CHOLESTEROL 166 mg/dL (<200); GFR AFRICAN-AMERICAN > 60.0 ml/min (>90); GFR NON AFRICAN-AMERICAN > 60.0 ml/min; GLUCOSE 112 mg/dL (70-105); HDL -HIGH DENSITY LIPOPROTEIN 31 mg/dL (23-92); POTASSIUM SERUM 4.1 mEq/L (3.5-5.1); SGOT 13 U/L (13-39); SGPT/ALT 10 U/L (7-52); SODIUM SERUM 138 mEq/L (136-145); TOTAL PROTEIN,SERUM 6.5 gm/dL (6.0-8.3); TRIGLYCERIDES 227 mg/dL (<150)
[2018-12-19 21:38] LABS: URINE CLARITY CLEAR (CLEAR); URINE COLOR COLORLESS
[2018-12-19 21:39] LABS: URINE RBC NONE SEEN /hpf (0-5); URINE WBC 0-2 /hpf (0-5)
[2018-12-19 21:40] LABS: URINE BACTERIA NONE SEEN /hpf (NONE SEEN); URINE EPITHELIAL CELLS NONE SEEN /lpf (FEW)
[2018-12-19 22:46] VITALS: BP 144/77
[2018-12-20 05:43] LABS: CHOLESTEROL 168 mg/dL (<200); HDL -HIGH DENSITY LIPOPROTEIN 34 mg/dL (23-92); TRIGLYCERIDES 115 mg/dL (<150)
[2018-12-20] MEDS ORDERED: [UNRECOGNIZED DRUG - OTHER] PO SCH (09:00)
--- NOTE | 2018-12-20 13:11 | Psychiatric Evaluation ---
DATE OF SERVICE: 12/19/2018 IDENTIFYING INFORMATION: The patient is a 68-year-old male. CHIEF COMPLAINT: The patient reported they had asked him to come here to have examination. HISTORY OF PRESENT ILLNESS: The patient was sent from [facility] because the patient was trying to strike at staff at [facility]. He has been my pt for a while there. The patient with a history of depression, paranoia, and dementia with a history of prior attempt to harm himself. He has been on Aricept 10 mg at bedtime, Namenda 10 mg twice a day. The patient when I talked to him, he denies that he will harm himself or anyone. He has very poor insight about his behavior. PAST PSYCHIATRIC HISTORY: Multiple prior admissions to this facility because of depression, paranoia with history of prior suicide attempt. MEDICAL HISTORY: Deferred to the medical doctor. ALLERGIES: THE PATIENT IS ALLERGIC TO ASPIRIN. FAMILY AND SOCIAL HISTORY: The patient apparently has 1 son that killed himself. The patient has a supportive family. However, he is unable to tell me more details about his history and I do not have his records here. MENTAL STATUS EXAMINATION: The patient is appropriately dressed and groomed. He was in bed, internally preoccupied, unable to participate in a meaningful conversation or make safe plan for self-care, unpredictable, impulsive. He was striking at staff, hard to redirect demented, confused. He knew that this is 12/2018, but he does not know why he is here. He thinks he is here to do a physical exam. He is unpredictable, impulsive. He is unable to tell me how is his sleep and his appetite. Does not know the President of [facility] and he said he does not care to know. His insight and judgment is impaired. His long-term memory is good for age. Recent memory is poor. Does not remember details that led to admission. Insight about his illness is poor. He does not realize his problems. Judgment is poor with him striking at staff. IMPRESSION: Bipolar disorder with psychosis; dementia. MEDICAL DIAGNOSIS: As per medical doctor. PLAN: The patient will be restarted on Abilify. We will do group therapy, milieu therapy, and individual therapy. ESTIMATED LENGTH OF STAY: 3-7 days. DISCHARGE CRITERIA: Feeling better, no longer aggressive. After discharge, outpatient treatment. [facility]# [id number] MTDPromise
--- NOTE | 2018-12-20 22:34 | History & Physical ---
ADMIT DATE: 12/19/2018 HISTORY OF PRESENT ILLNESS: The patient is a 68-year-old male with long history of dementia, hyperlipidemia, degenerative joint disease, admitted to [facility] under Dr. Shah's service for evaluation and treatment. The patient is not coherent. The patient has been agitated, confused. No fever, no chills, no nausea, no vomiting. PAST MEDICAL HISTORY: Significant for hyperlipidemia, degenerative joint disease, dementia, glaucoma. PAST SURGICAL HISTORY: No recent surgery. ALLERGIES: ASPIRIN. SOCIAL HISTORY: No smoking, no alcohol, no drug. FAMILY HISTORY: Noncontributory. MEDICATIONS: Follow admission reconciliation. REVIEW OF SYSTEMS: RENAL SYSTEM: No history of chronic renal disorder. CARDIOVASCULAR SYSTEM: No coronary artery disease. ENDOCRINE SYSTEM: No diabetes or thyroid problem. GASTROINTESTINAL SYSTEM: No upper or lower GI bleed. NEUROLOGICAL SYSTEM: No seizure disorder. SKELETOMUSCULAR SYSTEM: She has degenerative joint disease. HEMATOLOGIC SYSTEM: No bleeding tendencies. RESPIRATORY SYSTEM: No asthma. GENITOURINARY SYSTEM: No dysuria or hematuria. PHYSICAL EXAMINATION: GENERAL: He is awake, not coherent. VITAL SIGNS: Temperature 98.1, heart rate 69, blood pressure 120/78. HEENT: Normocephalic. Pupils reactive to light and accommodation. Sclerae clear. NECK: Supple. Negative for lymphadenopathy, JVD or bruit. CHEST: Entry of air bilaterally normal. No rhonchi or wheezing. HEART: S1, S2 normal. No gallop rhythm. ABDOMEN: Soft, bowel sounds positive. EXTREMITIES: No edema. NEUROLOGICAL: He is awake, not coherent. No focal muscle deficits. Cranial nerves 2-12 grossly intact. LABORATORY DATA: White blood cells 5.3, hemoglobin 13.4, hematocrit 39.7, platelet is 187. Sodium 130, potassium 4.0, BUN 21, creatinine 1.0. ASSESSMENT: 1. Hyperlipidemia. 2. Degenerative joint disease. 3. Dementia. 4. Psychosis. PLAN: The patient in the hospital under Dr. Shah's service. Medical problem addressed during this hospitalization is psychosis. Medical problems addressed at discharge, hyperlipidemia, degenerative joint disease. The patient is medically stable for activity. Thank you, Dr. Shah, for asking me to see your patient. The patient is a full code. JOB# [id number]
[2018-12-21 08:10] LABS: A1C 4.9 % (4.8-5.6)
--- NOTE | 2018-12-21 20:34 | Internal Medicine Prog Note ---
Internal Medicine Subjective - Subjective Service Date: 12/21/18 Patient seen and examined:: without staff (HE IS CONFUSED) Patient is:: awake, in bed, confused Per staff patient has:: no adverse event Internal Medicine Objective - Results Result Diagrams: 12/19/18 20:35 12/19/18 20:35 Recent Labs: Laboratory Last Values WBC 5.3 Th/cmm (4.8-10.8) 12/19/18 20:35 RBC 4.54 Mil/cmm (3.80-5.80) 12/19/18 20:35 Hgb 13.4 gm/dL (12-16) 12/19/18 20:35 Hct 39.7 % (41.0-60) L 12/19/18 20:35 MCV 87.5 fl (80-99) 12/19/18 20:35 MCH 29.5 pg (27.0-31.0) 12/19/18 20:35 MCHC Differential 33.8 pg (28.0-36.0) 12/19/18 20:35 RDW 13.6 % (11.5-20.0) 12/19/18 20:35 Plt Count 187 Th/cmm (150-400) 12/19/18 20:35 MPV 8.3 fl 12/19/18 20:35 Neutrophils % 65.0 % (40.0-80.0) 12/19/18 20:35 Lymphocytes % 23.7 % (20.0-50.0) 12/19/18 20:35 Monocytes % 8.4 % (2.0-10.0) 12/19/18 20:35 Eosinophils % 2.4 % (0.0-5.0) 12/19/18 20:35 Basophils % 0.5 % (0.0-2.0) 12/19/18 20:35 Sodium 138 mEq/L (136-145) 12/19/18 20:35 Potassium 4.1 mEq/L (3.5-5.1) 12/19/18 20:35 Chloride 104 mEq/L (98-107) 12/19/18 20:35 Carbon Dioxide 27.0 mEq/L (21.0-31.0) 12/19/18 20:35 Anion Gap 11.1 (7.0-16.0) 12/19/18 20:35 BUN 21 mg/dL (7-25) 12/19/18 20:35 Creatinine 1.0 mg/dL (0.7-1.3) 12/19/18 20:35 Est GFR ( Amer) > 60.0 ml/min (>90) 12/19/18 20:35 Est GFR (Non-Af Amer) > 60.0 ml/min 12/19/18 20:35 BUN/Creatinine Ratio 21.0 12/19/18 20:35 Glucose 112 mg/dL (70-105) H 12/19/18 20:35 Calcium 9.2 mg/dL (8.6-10.3) 12/19/18 20:35 Total Bilirubin 0.8 mg/dL (0.3-1.0) 12/19/18 20:35 AST 13 U/L (13-39) 12/19/18 20:35 ALT 10 U/L (7-52) 12/19/18 20:35 Alkaline Phosphatase 86 U/L (34-104) 12/19/18 20:35 Total Protein 6.5 gm/dL (6.0-8.3) 12/19/18 20:35 Albumin 4.0 gm/dL (4.2-5.5) L 12/19/18 20:35 Globulin 2.5 gm/dL 12/19/18 20:35 Albumin/Globulin Ratio 1.6 (1.0-1.8) 12/19/18 20:35 Triglycerides 115 mg/dL (<150) 12/20/18 05:15 Cholesterol 168 mg/dL (<200) 12/20/18 05:15 LDL Cholesterol Direct 127 mg/dL (75-193) 12/20/18 05:15 HDL Cholesterol 34 mg/dL (23-92) 12/20/18 05:15 TSH 1.47 uIU/ml (0.34-5.60) 12/19/18 20:35 Urine Source CLEAN C 12/19/18 20:35 Urine Color COLORLESS 12/19/18 20:35 Urine Clarity CLEAR (CLEAR) 12/19/18 20:35 Urine pH 5.0 (4.6 - 8.0) 12/19/18 20:35 Ur Specific [place] 1.015 (1.005-1.030) 12/19/18 20:35 Urine Protein NEGATIVE mg/dL (NEGATIVE) 12/19/18 20:35 Urine Glucose (UA) NEGATIVE mg/dL (NEGATIVE) 12/19/18 20:35 Urine Ketones NEGATIVE mg/dL (NEGATIVE) 12/19/18 20:35 Urine Blood TRACE (NEGATIVE) 12/19/18 20:35 Urine Nitrate NEGATIVE (NEGATIVE) 12/19/18 20:35 Urine Bilirubin NEGATIVE (NEGATIVE) 12/19/18 20:35 Urine Urobilinogen 0.2 E.U./dL (0.2 - 1.0) 12/19/18 20:35 Ur Leukocyte Esterase NEGATIVE (NEGATIVE) 12/19/18 20:35 Urine RBC NONE SEEN /hpf (0-5) 12/19/18 20:35 Urine WBC 0-2 /hpf (0-5) 12/19/18 20:35 Ur Epithelial Cells NONE SEEN /lpf (FEW) 12/19/18 20:35 Urine Bacteria NONE SEEN /hpf (NONE SEEN) 12/19/18 20:35 RPR NONREACTIVE (NONREACTIVE) 12/19/18 20:35 - Physical Exam Vitals and I&O: Vital Signs Temp 97.0 F 12/21/18 14:00 Pulse 93 12/21/18 14:00 Resp 19 12/21/18 19:56 BP 119/51 12/21/18 14:00 Pulse Ox 97 12/21/18 14:00 Intake & Output 12/21/18 12/21/18 12/22/18 06:59 18:59 06:59 Intake Total 240 880 Output Total 1 Balance 239 880 Intake: Oral 240 640 Other 240 Output: Urine 1 Other: # Voids 3 # Bowel Movements 1 Active Medications: Current Medications Acetaminophen (Tylenol) 650 mg PO Q4HR PRN PRN Reason: PAIN Stop: 02/17/19 22:57 Aripiprazole (Abilify) 5 mg PO DAILY [facility]; Protocol Stop: 02/19/19 08:59 Last Admin: 12/21/18 10:00 Dose: Not Given Cholecalciferol (Vitamin D3) 3,000 iu PO DAILY [facility] Stop: 02/18/19 08:59 Last Admin: 12/21/18 08:42 Dose: 3,000 iu Docusate Sodium (Colace) 100 mg PO BID [facility] Stop: 02/18/19 08:59 Last Admin: 12/21/18 17:14 Dose: 100 mg Donepezil HCl (Aricept) 10 mg PO HS [facility] Stop: 02/18/19 20:59 Last Admin: 12/20/18 20:43 Dose: 10 mg Lorazepam (Ativan) 0.5 mg PO Q4HR PRN; Protocol PRN Reason: Anxiety Stop: 01/18/19 22:51 Memantine (Namenda) 10 mg PO BID [facility] Stop: 02/18/19 08:59 Last Admin: 12/21/18 17:14 Dose: 10 mg Timolol Maleate (Timoptic 0.5% Ophth Soln) 1 drop EACH EYE BID [facility] Stop: 02/18/19 08:59 Last Admin: 12/21/18 17:14 Dose: 1 drop Zolpidem Tartrate (Ambien) 5 mg PO HS PRN PRN Reason: Insomnia Stop: 02/17/19 22:54 Last Admin: 12/20/18 20:43 Dose: 5 mg General: demented HEENT: NC/AT, PERRLA, EOMI, anicteric sclerae, throat clear Neck: Supple, No JVD, No thyromegaly, +2 carotid pulse wo bruit, No LAD Lungs: CTAB Cardiovascular: RRR, Normal S1, Normal S2, without murmur Abdomen: soft, non-tender, non-distended Extremities: clear Neurological: no change Internal Medicine Assmt/Plan - Assessment Assessment: 1.HYPERLIPIDEMIA. 2DJD. 3.DEMENTIA. 4.PSYCHOSIS - Plan Plan: CONTINUE ON CURRENT MEDICATION AND DIET
--- NOTE | 2018-12-21 21:08 | Progress Notes ---
DATE: 12/21/2018 Dr. Jose covering for Dr. Shah. SUBJECTIVE: Chart was reviewed and the patient interviewed. Also discussed the patient's condition with the staff and reviewed records and labs. The patient is still easily irritable and is still a poor historian and still needs close monitoring. The patient also still has tendency to strike out at staff and peers. He also is still easily agitated and easily irritable. He needs to be monitored closely. Otherwise, the patient is compliant with taking his medications with no side effects of medications. ASSESSMENT: The patient is still agitated and is still psychotic and needs close monitoring. TREATMENT PLAN: Continue adjusting psychotropic medications and work on behavioral modification and follow up closely. [facility]# [id number]
--- NOTE | 2018-12-22 10:25 | Progress Notes ---
DATE: SUBJECTIVE: Chart was reviewed and the patient interviewed. Also discussed the patient's condition with the staff and reviewed records and labs. The patient is still in a depressed mood. The patient also is still seems to be suspicious and paranoid and forgetful and still needs lots of redirections. The patient also is still having episodes of irritability, but less than before. ASSESSMENT: The patient is still anxious and is still depressed and needs close monitoring. TREATMENT PLAN: Continue to monitor his behavior and condition closely. Also, continue adjusting psychotropic medications and work on behavioral modification. [facility]# [id number]
--- NOTE | 2018-12-22 19:57 | Internal Medicine Prog Note ---
Internal Medicine Subjective - Subjective Service Date: 12/22/18 Patient seen and examined:: without staff (HE IS STILL CONFUSED) Patient is:: awake, in bed, confused Per staff patient has:: no adverse event Internal Medicine Objective - Results Result Diagrams: 12/19/18 20:35 12/19/18 20:35 Recent Labs: Laboratory Last Values WBC 5.3 Th/cmm (4.8-10.8) 12/19/18 20:35 RBC 4.54 Mil/cmm (3.80-5.80) 12/19/18 20:35 Hgb 13.4 gm/dL (12-16) 12/19/18 20:35 Hct 39.7 % (41.0-60) L 12/19/18 20:35 MCV 87.5 fl (80-99) 12/19/18 20:35 MCH 29.5 pg (27.0-31.0) 12/19/18 20:35 MCHC Differential 33.8 pg (28.0-36.0) 12/19/18 20:35 RDW 13.6 % (11.5-20.0) 12/19/18 20:35 Plt Count 187 Th/cmm (150-400) 12/19/18 20:35 MPV 8.3 fl 12/19/18 20:35 Neutrophils % 65.0 % (40.0-80.0) 12/19/18 20:35 Lymphocytes % 23.7 % (20.0-50.0) 12/19/18 20:35 Monocytes % 8.4 % (2.0-10.0) 12/19/18 20:35 Eosinophils % 2.4 % (0.0-5.0) 12/19/18 20:35 Basophils % 0.5 % (0.0-2.0) 12/19/18 20:35 Sodium 138 mEq/L (136-145) 12/19/18 20:35 Potassium 4.1 mEq/L (3.5-5.1) 12/19/18 20:35 Chloride 104 mEq/L (98-107) 12/19/18 20:35 Carbon Dioxide 27.0 mEq/L (21.0-31.0) 12/19/18 20:35 Anion Gap 11.1 (7.0-16.0) 12/19/18 20:35 BUN 21 mg/dL (7-25) 12/19/18 20:35 Creatinine 1.0 mg/dL (0.7-1.3) 12/19/18 20:35 Est GFR ( Amer) > 60.0 ml/min (>90) 12/19/18 20:35 Est GFR (Non-Af Amer) > 60.0 ml/min 12/19/18 20:35 BUN/Creatinine Ratio 21.0 12/19/18 20:35 Glucose 112 mg/dL (70-105) H 12/19/18 20:35 Calcium 9.2 mg/dL (8.6-10.3) 12/19/18 20:35 Total Bilirubin 0.8 mg/dL (0.3-1.0) 12/19/18 20:35 AST 13 U/L (13-39) 12/19/18 20:35 ALT 10 U/L (7-52) 12/19/18 20:35 Alkaline Phosphatase 86 U/L (34-104) 12/19/18 20:35 Total Protein 6.5 gm/dL (6.0-8.3) 12/19/18 20:35 Albumin 4.0 gm/dL (4.2-5.5) L 12/19/18 20:35 Globulin 2.5 gm/dL 12/19/18 20:35 Albumin/Globulin Ratio 1.6 (1.0-1.8) 12/19/18 20:35 Triglycerides 115 mg/dL (<150) 12/20/18 05:15 Cholesterol 168 mg/dL (<200) 12/20/18 05:15 LDL Cholesterol Direct 127 mg/dL (75-193) 12/20/18 05:15 HDL Cholesterol 34 mg/dL (23-92) 12/20/18 05:15 TSH 1.47 uIU/ml (0.34-5.60) 12/19/18 20:35 Urine Source CLEAN C 12/19/18 20:35 Urine Color COLORLESS 12/19/18 20:35 Urine Clarity CLEAR (CLEAR) 12/19/18 20:35 Urine pH 5.0 (4.6 - 8.0) 12/19/18 20:35 Ur Specific [place] 1.015 (1.005-1.030) 12/19/18 20:35 Urine Protein NEGATIVE mg/dL (NEGATIVE) 12/19/18 20:35 Urine Glucose (UA) NEGATIVE mg/dL (NEGATIVE) 12/19/18 20:35 Urine Ketones NEGATIVE mg/dL (NEGATIVE) 12/19/18 20:35 Urine Blood TRACE (NEGATIVE) 12/19/18 20:35 Urine Nitrate NEGATIVE (NEGATIVE) 12/19/18 20:35 Urine Bilirubin NEGATIVE (NEGATIVE) 12/19/18 20:35 Urine Urobilinogen 0.2 E.U./dL (0.2 - 1.0) 12/19/18 20:35 Ur Leukocyte Esterase NEGATIVE (NEGATIVE) 12/19/18 20:35 Urine RBC NONE SEEN /hpf (0-5) 12/19/18 20:35 Urine WBC 0-2 /hpf (0-5) 12/19/18 20:35 Ur Epithelial Cells NONE SEEN /lpf (FEW) 12/19/18 20:35 Urine Bacteria NONE SEEN /hpf (NONE SEEN) 12/19/18 20:35 RPR NONREACTIVE (NONREACTIVE) 12/19/18 20:35 - Physical Exam Vitals and I&O: Vital Signs Temp 98 F 12/22/18 14:00 Pulse 90 12/22/18 14:00 Resp 22 12/22/18 14:00 BP 100/70 12/22/18 14:00 Pulse Ox 96 12/22/18 14:00 Intake & Output 12/22/18 12/22/18 12/23/18 06:59 18:59 06:59 Intake Total 120 1200 Balance 120 1200 Intake: Oral 120 1200 Other: # Voids 2 4 # Bowel Movements 1 Active Medications: Current Medications Acetaminophen (Tylenol) 650 mg PO Q4HR PRN PRN Reason: PAIN Stop: 02/17/19 22:57 Aripiprazole (Abilify) 5 mg PO DAILY [facility]; Protocol Stop: 02/19/19 08:59 Last Admin: 12/22/18 09:17 Dose: 5 mg Cholecalciferol (Vitamin D3) 3,000 iu PO DAILY [facility] Stop: 02/18/19 08:59 Last Admin: 12/22/18 09:18 Dose: 3,000 iu Docusate Sodium (Colace) 100 mg PO BID [facility] Stop: 02/18/19 08:59 Last Admin: 12/22/18 17:10 Dose: 100 mg Donepezil HCl (Aricept) 10 mg PO HS [facility] Stop: 02/18/19 20:59 Last Admin: 12/21/18 21:16 Dose: 10 mg Lorazepam (Ativan) 0.5 mg PO Q4HR PRN; Protocol PRN Reason: Anxiety Stop: 01/18/19 22:51 Memantine (Namenda) 10 mg PO BID [facility] Stop: 02/18/19 08:59 Last Admin: 12/22/18 17:10 Dose: 10 mg Timolol Maleate (Timoptic 0.5% Ophth Soln) 1 drop EACH EYE BID [facility] Stop: 02/18/19 08:59 Last Admin: 12/22/18 17:10 Dose: 1 drop Zolpidem Tartrate (Ambien) 5 mg PO HS PRN PRN Reason: Insomnia Stop: 02/17/19 22:54 Last Admin: 12/21/18 21:16 Dose: 5 mg General: demented HEENT: NC/AT, PERRLA, EOMI, anicteric sclerae, throat clear Neck: Supple, No JVD, No thyromegaly, +2 carotid pulse wo bruit, No LAD Lungs: CTAB Cardiovascular: RRR, Normal S1, Normal S2, without murmur Abdomen: soft, non-tender, non-distended Extremities: clear Neurological: no change Internal Medicine Assmt/Plan - Assessment Assessment: 1.HYPERLIPIDEMIA. 2DJD. 3.DEMENTIA. 4.PSYCHOSIS - Plan Plan: CONTINUE ON CURRENT MEDICATION AND DIET
--- NOTE | 2018-12-23 19:50 | Internal Medicine Prog Note ---
Internal Medicine Subjective - Subjective Service Date: 12/23/18 Patient seen and examined:: without staff (HE IS CONFUSED) Patient is:: awake, in bed, confused Per staff patient has:: no adverse event Internal Medicine Objective - Results Result Diagrams: 12/19/18 20:35 12/19/18 20:35 Recent Labs: Laboratory Last Values WBC 5.3 Th/cmm (4.8-10.8) 12/19/18 20:35 RBC 4.54 Mil/cmm (3.80-5.80) 12/19/18 20:35 Hgb 13.4 gm/dL (12-16) 12/19/18 20:35 Hct 39.7 % (41.0-60) L 12/19/18 20:35 MCV 87.5 fl (80-99) 12/19/18 20:35 MCH 29.5 pg (27.0-31.0) 12/19/18 20:35 MCHC Differential 33.8 pg (28.0-36.0) 12/19/18 20:35 RDW 13.6 % (11.5-20.0) 12/19/18 20:35 Plt Count 187 Th/cmm (150-400) 12/19/18 20:35 MPV 8.3 fl 12/19/18 20:35 Neutrophils % 65.0 % (40.0-80.0) 12/19/18 20:35 Lymphocytes % 23.7 % (20.0-50.0) 12/19/18 20:35 Monocytes % 8.4 % (2.0-10.0) 12/19/18 20:35 Eosinophils % 2.4 % (0.0-5.0) 12/19/18 20:35 Basophils % 0.5 % (0.0-2.0) 12/19/18 20:35 Sodium 138 mEq/L (136-145) 12/19/18 20:35 Potassium 4.1 mEq/L (3.5-5.1) 12/19/18 20:35 Chloride 104 mEq/L (98-107) 12/19/18 20:35 Carbon Dioxide 27.0 mEq/L (21.0-31.0) 12/19/18 20:35 Anion Gap 11.1 (7.0-16.0) 12/19/18 20:35 BUN 21 mg/dL (7-25) 12/19/18 20:35 Creatinine 1.0 mg/dL (0.7-1.3) 12/19/18 20:35 Est GFR ( Amer) > 60.0 ml/min (>90) 12/19/18 20:35 Est GFR (Non-Af Amer) > 60.0 ml/min 12/19/18 20:35 BUN/Creatinine Ratio 21.0 12/19/18 20:35 Glucose 112 mg/dL (70-105) H 12/19/18 20:35 Calcium 9.2 mg/dL (8.6-10.3) 12/19/18 20:35 Total Bilirubin 0.8 mg/dL (0.3-1.0) 12/19/18 20:35 AST 13 U/L (13-39) 12/19/18 20:35 ALT 10 U/L (7-52) 12/19/18 20:35 Alkaline Phosphatase 86 U/L (34-104) 12/19/18 20:35 Total Protein 6.5 gm/dL (6.0-8.3) 12/19/18 20:35 Albumin 4.0 gm/dL (4.2-5.5) L 12/19/18 20:35 Globulin 2.5 gm/dL 12/19/18 20:35 Albumin/Globulin Ratio 1.6 (1.0-1.8) 12/19/18 20:35 Triglycerides 115 mg/dL (<150) 12/20/18 05:15 Cholesterol 168 mg/dL (<200) 12/20/18 05:15 LDL Cholesterol Direct 127 mg/dL (75-193) 12/20/18 05:15 HDL Cholesterol 34 mg/dL (23-92) 12/20/18 05:15 TSH 1.47 uIU/ml (0.34-5.60) 12/19/18 20:35 Urine Source CLEAN C 12/19/18 20:35 Urine Color COLORLESS 12/19/18 20:35 Urine Clarity CLEAR (CLEAR) 12/19/18 20:35 Urine pH 5.0 (4.6 - 8.0) 12/19/18 20:35 Ur Specific [place] 1.015 (1.005-1.030) 12/19/18 20:35 Urine Protein NEGATIVE mg/dL (NEGATIVE) 12/19/18 20:35 Urine Glucose (UA) NEGATIVE mg/dL (NEGATIVE) 12/19/18 20:35 Urine Ketones NEGATIVE mg/dL (NEGATIVE) 12/19/18 20:35 Urine Blood TRACE (NEGATIVE) 12/19/18 20:35 Urine Nitrate NEGATIVE (NEGATIVE) 12/19/18 20:35 Urine Bilirubin NEGATIVE (NEGATIVE) 12/19/18 20:35 Urine Urobilinogen 0.2 E.U./dL (0.2 - 1.0) 12/19/18 20:35 Ur Leukocyte Esterase NEGATIVE (NEGATIVE) 12/19/18 20:35 Urine RBC NONE SEEN /hpf (0-5) 12/19/18 20:35 Urine WBC 0-2 /hpf (0-5) 12/19/18 20:35 Ur Epithelial Cells NONE SEEN /lpf (FEW) 12/19/18 20:35 Urine Bacteria NONE SEEN /hpf (NONE SEEN) 12/19/18 20:35 RPR NONREACTIVE (NONREACTIVE) 12/19/18 20:35 - Physical Exam Vitals and I&O: Vital Signs Temp 97.2 F 12/23/18 06:35 Pulse 82 12/23/18 06:35 Resp 20 12/23/18 19:45 BP 113/80 12/23/18 06:35 Pulse Ox 99 12/23/18 06:35 Intake & Output 12/23/18 12/23/18 12/24/18 06:59 18:59 06:59 Intake Total 120 1000 Balance 120 1000 Intake: Oral 120 1000 Other: # Voids 3 4 # Bowel Movements 1 Active Medications: Current Medications Acetaminophen (Tylenol) 650 mg PO Q4HR PRN PRN Reason: PAIN Stop: 02/17/19 22:57 Aripiprazole (Abilify) 5 mg PO DAILY [facility]; Protocol Stop: 02/19/19 08:59 Last Admin: 12/23/18 09:15 Dose: 5 mg Cholecalciferol (Vitamin D3) 3,000 iu PO DAILY [facility] Stop: 02/18/19 08:59 Last Admin: 12/23/18 09:15 Dose: 3,000 iu Docusate Sodium (Colace) 100 mg PO BID [facility] Stop: 02/18/19 08:59 Last Admin: 12/23/18 17:00 Dose: 100 mg Donepezil HCl (Aricept) 10 mg PO HS [facility] Stop: 02/18/19 20:59 Last Admin: 12/22/18 20:22 Dose: 10 mg Lorazepam (Ativan) 0.5 mg PO Q4HR PRN; Protocol PRN Reason: Anxiety Stop: 01/18/19 22:51 Memantine (Namenda) 10 mg PO BID [facility] Stop: 02/18/19 08:59 Last Admin: 12/23/18 17:00 Dose: 10 mg Timolol Maleate (Timoptic 0.5% Ophth Soln) 1 drop EACH EYE BID [facility] Stop: 02/18/19 08:59 Last Admin: 12/23/18 17:00 Dose: 1 drop Zolpidem Tartrate (Ambien) 5 mg PO HS PRN PRN Reason: Insomnia Stop: 02/17/19 22:54 Last Admin: 12/22/18 20:22 Dose: 5 mg General: demented HEENT: NC/AT, PERRLA, EOMI, anicteric sclerae, throat clear Neck: Supple, No JVD, No thyromegaly, +2 carotid pulse wo bruit, No LAD Lungs: CTAB Cardiovascular: RRR, Normal S1, Normal S2, without murmur Abdomen: soft, non-tender, non-distended Extremities: clear Neurological: no change Internal Medicine Assmt/Plan - Assessment Assessment: 1.HYPERLIPIDEMIA. 2DJD. 3.DEMENTIA. 4.PSYCHOSIS - Plan Plan: CONTINUE ON CURRENT MEDICATION AND DIET Nutritional Asmnt/Malnutr-PDOC - Dietary Evaluation Malnutrition Findings (Please click <Entered> for more info): Nutritional Asmnt/Malnutrition Start: 12/23/18 13: 06 Text: Status: Complete Freq: Protocol: Document 12/23/18 13:06 BIRGIT (Rec: 12/23/18 13:14 [email or web address] [id number]) Nutritional Asmnt/Malnutrition Patient General Information Nutritional Screening Moderate Risk Diagnosis Psychosis Pertinent Medical Hx/Surgical Hx DM, CVA/TIA, Arthritis, Status post UTI, Psychosis, Traumatic brain injury, Hypokalemia, Hyperlipidemia, Degenerative joint disease, dementia, glaucoma Subjective Information Pt is a 68-year-old male from extended care facility admitted on 12/19 c/o increased agitation and aggressive behavior. Pt is currently eating an estimated 80% meals x 3 days per Meal/Nutrition Activity Record. HT: 55 WT: 171 LB (77.73 kg) ADJ BW: 68 kg BMI: 28.52 (Overweight) GI: WNL, Flat, Non-Tender BM: 12/23 x 1 I/O: 1320/Not Noted Skin: WNL, Intact Ernst: 22 Diet Order: CCHO 60 gm Estimated Energy Needs: ( Overweight, ADJ BW) 2752-2568 kcals (20-25 kcals/ kg) 55-61 g Pro (0.8-0.9 g/kg) 9916-7429 ml (25-30 ml/kg) Pt is currently eating an estimated 80% meals x 3 days per Meal/Nutrition Activity Record. Dietary is currently providing an estimated 2015 kcals and 93 gm Pro. Per Pt PO intake, this is providing an estimated 1600 kcals and 74 gm Pro, to meet 100% kcal and 100% Pro needs - Adequate. Current Diet Order/ Nutrition Support CCHO 60 gm Pertinent Medications Vitamin D3, Colace Pertinent Labs 12/19: Hgb/Hct 13.4/39.7, Glucose 112, Alb 4.0 Nutritional Hx/Data Height 1.65 m Height (Calculated Centimeters) 165.1 Current Weight (lbs) 77.564 kg Weight (Calculated Kilograms) 77.6 Weight (Calculated Grams) 00840.3 [place] Body Weight 61.5 kg % [place] Body Weight 126 Body Mass Index (BMI) 28.4 Weight Status Overweight GI Symptoms GI Symptoms None Last BM 12/23 x 1 Skin Integrity/Comment: WNL, Intact Ernst: 22 Current %PO Good (75-100%) Estimated Nutritional Goals BEE in Kcals: Adj wt of IBW Calories/Kcals/Kg 20-25 Kcals Calculated 5028-3536 Protein: Adj wt of IBW Protein g/k.8-0.9 Protein Calculated 55-61 Fluid: ml 2695-6680 ml (25-30 ml/kg) Nutritional Problem No current Nutrition Prob Problem N/A Etiology N/A Signs/Symptoms: N/A Malnutrition Related to Morbid Obesity Malnutrition related to morbid obesity No Intervention/Recommendation Comments 1. Continue CCHO 60 gm diet as ordered. Expected Outcomes/Goals Expected Outcomes/Goals 1. PO intake to continue to meet >75% of nutritional needs . 2. Monitor PO intake, wt, nutrition related labs and skin integrity. 3. F/U as low risk in 7 days, 12/30
--- NOTE | 2018-12-24 00:45 | Progress Notes ---
DATE: 12/23/2018 Case was discussed with staff of the patient and reviewed records. The patient is reported to be internally preoccupied. He continues to isolate himself, unpredictable, impulsive, needing redirection. He is compliant with the medication with no side effects, no sedation, no nausea, and no extrapyramidal symptoms. He continues to have episodes of being suspicious and paranoid. He tolerates Abilify. We will continue to work with the patient in group therapy, milieu therapy, and adjust the medication as needed. JOB# [id number]
--- NOTE | 2018-12-24 20:17 | Progress Notes ---
DATE: 12/24/2018 Case was discussed with staff of the patient, reviewed records. The patient continues to isolate himself. He tend to get paranoid. He is demented, confused, unable to make safe plan for self-care. Continues to have poor insight in general. His lab work showed CBC with low hematocrit, the rest within normal range. The rest of the chemistry panel is within normal range. He has a high triglyceride, the rest of the lipid panel within normal range. TSH within normal range. Urinalysis within normal range. RPR nonreactive. We will continue to work with the patient in group therapy, milieu therapy, and adjust the medication as needed. JOB# [id number] MTDPromise
--- NOTE | 2018-12-24 21:48 | Internal Medicine Prog Note ---
Internal Medicine Subjective - Subjective Service Date: 12/24/18 Patient seen and examined:: without staff (HE IS CONFUSED) Patient is:: awake, in bed, confused Per staff patient has:: no adverse event Internal Medicine Objective - Results Result Diagrams: 12/19/18 20:35 12/19/18 20:35 Recent Labs: Laboratory Last Values WBC 5.3 Th/cmm (4.8-10.8) 12/19/18 20:35 RBC 4.54 Mil/cmm (3.80-5.80) 12/19/18 20:35 Hgb 13.4 gm/dL (12-16) 12/19/18 20:35 Hct 39.7 % (41.0-60) L 12/19/18 20:35 MCV 87.5 fl (80-99) 12/19/18 20:35 MCH 29.5 pg (27.0-31.0) 12/19/18 20:35 MCHC Differential 33.8 pg (28.0-36.0) 12/19/18 20:35 RDW 13.6 % (11.5-20.0) 12/19/18 20:35 Plt Count 187 Th/cmm (150-400) 12/19/18 20:35 MPV 8.3 fl 12/19/18 20:35 Neutrophils % 65.0 % (40.0-80.0) 12/19/18 20:35 Lymphocytes % 23.7 % (20.0-50.0) 12/19/18 20:35 Monocytes % 8.4 % (2.0-10.0) 12/19/18 20:35 Eosinophils % 2.4 % (0.0-5.0) 12/19/18 20:35 Basophils % 0.5 % (0.0-2.0) 12/19/18 20:35 Sodium 138 mEq/L (136-145) 12/19/18 20:35 Potassium 4.1 mEq/L (3.5-5.1) 12/19/18 20:35 Chloride 104 mEq/L (98-107) 12/19/18 20:35 Carbon Dioxide 27.0 mEq/L (21.0-31.0) 12/19/18 20:35 Anion Gap 11.1 (7.0-16.0) 12/19/18 20:35 BUN 21 mg/dL (7-25) 12/19/18 20:35 Creatinine 1.0 mg/dL (0.7-1.3) 12/19/18 20:35 Est GFR ( Amer) > 60.0 ml/min (>90) 12/19/18 20:35 Est GFR (Non-Af Amer) > 60.0 ml/min 12/19/18 20:35 BUN/Creatinine Ratio 21.0 12/19/18 20:35 Glucose 112 mg/dL (70-105) H 12/19/18 20:35 Calcium 9.2 mg/dL (8.6-10.3) 12/19/18 20:35 Total Bilirubin 0.8 mg/dL (0.3-1.0) 12/19/18 20:35 AST 13 U/L (13-39) 12/19/18 20:35 ALT 10 U/L (7-52) 12/19/18 20:35 Alkaline Phosphatase 86 U/L (34-104) 12/19/18 20:35 Total Protein 6.5 gm/dL (6.0-8.3) 12/19/18 20:35 Albumin 4.0 gm/dL (4.2-5.5) L 12/19/18 20:35 Globulin 2.5 gm/dL 12/19/18 20:35 Albumin/Globulin Ratio 1.6 (1.0-1.8) 12/19/18 20:35 Triglycerides 115 mg/dL (<150) 12/20/18 05:15 Cholesterol 168 mg/dL (<200) 12/20/18 05:15 LDL Cholesterol Direct 127 mg/dL (75-193) 12/20/18 05:15 HDL Cholesterol 34 mg/dL (23-92) 12/20/18 05:15 TSH 1.47 uIU/ml (0.34-5.60) 12/19/18 20:35 Urine Source CLEAN C 12/19/18 20:35 Urine Color COLORLESS 12/19/18 20:35 Urine Clarity CLEAR (CLEAR) 12/19/18 20:35 Urine pH 5.0 (4.6 - 8.0) 12/19/18 20:35 Ur Specific [place] 1.015 (1.005-1.030) 12/19/18 20:35 Urine Protein NEGATIVE mg/dL (NEGATIVE) 12/19/18 20:35 Urine Glucose (UA) NEGATIVE mg/dL (NEGATIVE) 12/19/18 20:35 Urine Ketones NEGATIVE mg/dL (NEGATIVE) 12/19/18 20:35 Urine Blood TRACE (NEGATIVE) 12/19/18 20:35 Urine Nitrate NEGATIVE (NEGATIVE) 12/19/18 20:35 Urine Bilirubin NEGATIVE (NEGATIVE) 12/19/18 20:35 Urine Urobilinogen 0.2 E.U./dL (0.2 - 1.0) 12/19/18 20:35 Ur Leukocyte Esterase NEGATIVE (NEGATIVE) 12/19/18 20:35 Urine RBC NONE SEEN /hpf (0-5) 12/19/18 20:35 Urine WBC 0-2 /hpf (0-5) 12/19/18 20:35 Ur Epithelial Cells NONE SEEN /lpf (FEW) 12/19/18 20:35 Urine Bacteria NONE SEEN /hpf (NONE SEEN) 12/19/18 20:35 RPR NONREACTIVE (NONREACTIVE) 12/19/18 20:35 - Physical Exam Vitals and I&O: Vital Signs Temp 97.6 F 12/24/18 20:40 Pulse 71 12/24/18 20:40 Resp 20 12/24/18 20:40 BP 117/76 12/24/18 20:40 Pulse Ox 100 12/24/18 20:40 Intake & Output 12/24/18 12/24/18 12/25/18 06:59 18:59 06:59 Intake Total 240 120 Balance 240 120 Intake: Oral 240 120 Other: # Voids 3 3 # Bowel Movements 0 0 Active Medications: Current Medications Acetaminophen (Tylenol) 650 mg PO Q4HR PRN PRN Reason: PAIN Stop: 02/17/19 22:57 Aripiprazole (Abilify) 5 mg PO DAILY [facility]; Protocol Stop: 02/19/19 08:59 Last Admin: 12/24/18 09:31 Dose: 5 mg Cholecalciferol (Vitamin D3) 3,000 iu PO DAILY [facility] Stop: 02/18/19 08:59 Last Admin: 12/24/18 09:30 Dose: 3,000 iu Docusate Sodium (Colace) 100 mg PO BID [facility] Stop: 02/18/19 08:59 Last Admin: 12/24/18 16:39 Dose: 100 mg Donepezil HCl (Aricept) 10 mg PO HS [facility] Stop: 02/18/19 20:59 Last Admin: 12/24/18 20:34 Dose: 10 mg Lorazepam (Ativan) 0.5 mg PO Q4HR PRN; Protocol PRN Reason: Anxiety Stop: 01/18/19 22:51 Memantine (Namenda) 10 mg PO BID [facility] Stop: 02/18/19 08:59 Last Admin: 12/24/18 16:39 Dose: 10 mg Timolol Maleate (Timoptic 0.5% Ophth Soln) 1 drop EACH EYE BID [facility] Stop: 02/18/19 08:59 Last Admin: 12/24/18 16:40 Dose: 1 drop Zolpidem Tartrate (Ambien) 5 mg PO HS PRN PRN Reason: Insomnia Stop: 02/17/19 22:54 Last Admin: 12/24/18 20:35 Dose: 5 mg General: demented HEENT: NC/AT, PERRLA, EOMI, anicteric sclerae, throat clear Neck: Supple, No JVD, No thyromegaly, +2 carotid pulse wo bruit, No LAD Lungs: CTAB Cardiovascular: RRR, Normal S1, Normal S2, without murmur Abdomen: soft, non-tender, non-distended Extremities: clear Neurological: no change Internal Medicine Assmt/Plan - Assessment Assessment: 1.HYPERLIPIDEMIA. 2.DJD. 3.DEMENTIA. 4.PSYCHOSIS - Plan Plan: CONTINUE ON CURRENT MEDICATION AND DIET Nutritional Asmnt/Malnutr-PDOC - Dietary Evaluation Malnutrition Findings (Please click <Entered> for more info): Nutritional Asmnt/Malnutrition Start: 12/23/18 13: 06 Text: Status: Complete Freq: Protocol: Document 12/23/18 13:06 BIRGIT (Rec: 12/23/18 13:14 [id number]) Nutritional Asmnt/Malnutrition Patient General Information Nutritional Screening Moderate Risk Diagnosis Psychosis Pertinent Medical Hx/Surgical Hx DM, CVA/TIA, Arthritis, Status post UTI, Psychosis, Traumatic brain injury, Hypokalemia, Hyperlipidemia, Degenerative joint disease, dementia, glaucoma Subjective Information Pt is a 68-year-old male from extended care facility admitted on 12/19 c/o increased agitation and aggressive behavior. Pt is currently eating an estimated 80% meals x 3 days per Meal/Nutrition Activity Record. HT: 55 WT: 171 LB (77.73 kg) ADJ BW: 68 kg BMI: 28.52 (Overweight) GI: WNL, Flat, Non-Tender BM: 12/23 x 1 I/O: 1320/Not Noted Skin: WNL, Intact Ernst: 22 Diet Order: CCHO 60 gm Estimated Energy Needs: ( Overweight, ADJ BW) 9811-2036 kcals (20-25 kcals/ kg) 55-61 g Pro (0.8-0.9 g/kg) 4311-0010 ml (25-30 ml/kg) Pt is currently eating an estimated 80% meals x 3 days per Meal/Nutrition Activity Record. Dietary is currently providing an estimated 2015 kcals and 93 gm Pro. Per Pt PO intake, this is providing an estimated 1600 kcals and 74 gm Pro, to meet 100% kcal and 100% Pro needs - Adequate. Current Diet Order/ Nutrition Support CCHO 60 gm Pertinent Medications Vitamin D3, Colace Pertinent Labs 12/19: Hgb/Hct 13.4/39.7, Glucose 112, Alb 4.0 Nutritional Hx/Data Height 1.65 m Height (Calculated Centimeters) 165.1 Current Weight (lbs) 77.564 kg Weight (Calculated Kilograms) 77.6 Weight (Calculated Grams) 65442.3 [place] Body Weight 61.5 kg % [place] Body Weight 126 Body Mass Index (BMI) 28.4 Weight Status Overweight GI Symptoms GI Symptoms None Last BM 12/23 x 1 Skin Integrity/Comment: WNL, Intact Ernst: 22 Current %PO Good (75-100%) Estimated Nutritional Goals BEE in Kcals: Adj wt of IBW Calories/Kcals/Kg 20-25 Kcals Calculated 4784-6877 Protein: Adj wt of IBW Protein g/k.8-0.9 Protein Calculated 55-61 Fluid: ml 4617-9645 ml (25-30 ml/kg) Nutritional Problem No current Nutrition Prob Problem N/A Etiology N/A Signs/Symptoms: N/A Malnutrition Related to Morbid Obesity Malnutrition related to morbid obesity No Intervention/Recommendation Comments 1. Continue CCHO 60 gm diet as ordered. Expected Outcomes/Goals Expected Outcomes/Goals 1. PO intake to continue to meet >75% of nutritional needs . 2. Monitor PO intake, wt, nutrition related labs and skin integrity. 3. F/U as low risk in 7 days, 12/30
--- NOTE | 2018-12-25 17:20 | Progress Notes ---
DATE: 12/25/2018 Case was discussed with staff of the patient, reviewed records. The patient continues to isolate himself. Continues to be unpredictable, impulsive. He is demented, confused, unable to make safe plan for self-care. He is able, however, to smile, sleeping better, eating better, continues to have episodes of agitation, irritability, but in general, he started to show progress. No side effects with the medication, no sedation, no nausea, no extrapyramidal symptoms. We will continue to work with the patient in group therapy, milieu therapy, and adjust the medication as needed. JOB# [id number]
--- NOTE | 2018-12-25 20:44 | Internal Medicine Prog Note ---
Internal Medicine Subjective - Subjective Service Date: 12/25/18 Patient seen and examined:: with staff (HE IS DOING BETTER) Patient is:: awake, in bed, confused Per staff patient has:: no adverse event Internal Medicine Objective - Results Result Diagrams: 12/19/18 20:35 12/19/18 20:35 Recent Labs: Laboratory Last Values WBC 5.3 Th/cmm (4.8-10.8) 12/19/18 20:35 RBC 4.54 Mil/cmm (3.80-5.80) 12/19/18 20:35 Hgb 13.4 gm/dL (12-16) 12/19/18 20:35 Hct 39.7 % (41.0-60) L 12/19/18 20:35 MCV 87.5 fl (80-99) 12/19/18 20:35 MCH 29.5 pg (27.0-31.0) 12/19/18 20:35 MCHC Differential 33.8 pg (28.0-36.0) 12/19/18 20:35 RDW 13.6 % (11.5-20.0) 12/19/18 20:35 Plt Count 187 Th/cmm (150-400) 12/19/18 20:35 MPV 8.3 fl 12/19/18 20:35 Neutrophils % 65.0 % (40.0-80.0) 12/19/18 20:35 Lymphocytes % 23.7 % (20.0-50.0) 12/19/18 20:35 Monocytes % 8.4 % (2.0-10.0) 12/19/18 20:35 Eosinophils % 2.4 % (0.0-5.0) 12/19/18 20:35 Basophils % 0.5 % (0.0-2.0) 12/19/18 20:35 Sodium 138 mEq/L (136-145) 12/19/18 20:35 Potassium 4.1 mEq/L (3.5-5.1) 12/19/18 20:35 Chloride 104 mEq/L (98-107) 12/19/18 20:35 Carbon Dioxide 27.0 mEq/L (21.0-31.0) 12/19/18 20:35 Anion Gap 11.1 (7.0-16.0) 12/19/18 20:35 BUN 21 mg/dL (7-25) 12/19/18 20:35 Creatinine 1.0 mg/dL (0.7-1.3) 12/19/18 20:35 Est GFR ( Amer) > 60.0 ml/min (>90) 12/19/18 20:35 Est GFR (Non-Af Amer) > 60.0 ml/min 12/19/18 20:35 BUN/Creatinine Ratio 21.0 12/19/18 20:35 Glucose 112 mg/dL (70-105) H 12/19/18 20:35 Calcium 9.2 mg/dL (8.6-10.3) 12/19/18 20:35 Total Bilirubin 0.8 mg/dL (0.3-1.0) 12/19/18 20:35 AST 13 U/L (13-39) 12/19/18 20:35 ALT 10 U/L (7-52) 12/19/18 20:35 Alkaline Phosphatase 86 U/L (34-104) 12/19/18 20:35 Total Protein 6.5 gm/dL (6.0-8.3) 12/19/18 20:35 Albumin 4.0 gm/dL (4.2-5.5) L 12/19/18 20:35 Globulin 2.5 gm/dL 12/19/18 20:35 Albumin/Globulin Ratio 1.6 (1.0-1.8) 12/19/18 20:35 Triglycerides 115 mg/dL (<150) 12/20/18 05:15 Cholesterol 168 mg/dL (<200) 12/20/18 05:15 LDL Cholesterol Direct 127 mg/dL (75-193) 12/20/18 05:15 HDL Cholesterol 34 mg/dL (23-92) 12/20/18 05:15 TSH 1.47 uIU/ml (0.34-5.60) 12/19/18 20:35 Urine Source CLEAN C 12/19/18 20:35 Urine Color COLORLESS 12/19/18 20:35 Urine Clarity CLEAR (CLEAR) 12/19/18 20:35 Urine pH 5.0 (4.6 - 8.0) 12/19/18 20:35 Ur Specific [place] 1.015 (1.005-1.030) 12/19/18 20:35 Urine Protein NEGATIVE mg/dL (NEGATIVE) 12/19/18 20:35 Urine Glucose (UA) NEGATIVE mg/dL (NEGATIVE) 12/19/18 20:35 Urine Ketones NEGATIVE mg/dL (NEGATIVE) 12/19/18 20:35 Urine Blood TRACE (NEGATIVE) 12/19/18 20:35 Urine Nitrate NEGATIVE (NEGATIVE) 12/19/18 20:35 Urine Bilirubin NEGATIVE (NEGATIVE) 12/19/18 20:35 Urine Urobilinogen 0.2 E.U./dL (0.2 - 1.0) 12/19/18 20:35 Ur Leukocyte Esterase NEGATIVE (NEGATIVE) 12/19/18 20:35 Urine RBC NONE SEEN /hpf (0-5) 12/19/18 20:35 Urine WBC 0-2 /hpf (0-5) 12/19/18 20:35 Ur Epithelial Cells NONE SEEN /lpf (FEW) 12/19/18 20:35 Urine Bacteria NONE SEEN /hpf (NONE SEEN) 12/19/18 20:35 RPR NONREACTIVE (NONREACTIVE) 12/19/18 20:35 - Physical Exam Vitals and I&O: Vital Signs Temp 98.4 F 12/25/18 14:00 Pulse 86 12/25/18 14:00 Resp 20 12/25/18 14:00 BP 136/78 12/25/18 14:00 Pulse Ox 97 12/25/18 14:00 Intake & Output 12/25/18 12/25/18 12/26/18 06:59 18:59 06:59 Intake Total 120 1400 Balance 120 1400 Intake: Oral 120 1400 Other: # Voids 3 4 # Bowel Movements 0 1 Active Medications: Current Medications Acetaminophen (Tylenol) 650 mg PO Q4HR PRN PRN Reason: PAIN Stop: 02/17/19 22:57 Aripiprazole (Abilify) 5 mg PO DAILY [facility]; Protocol Stop: 02/19/19 08:59 Last Admin: 12/25/18 08:48 Dose: 5 mg Cholecalciferol (Vitamin D3) 3,000 iu PO DAILY [facility] Stop: 02/18/19 08:59 Last Admin: 12/25/18 08:48 Dose: 3,000 iu Docusate Sodium (Colace) 100 mg PO BID [facility] Stop: 02/18/19 08:59 Last Admin: 12/25/18 16:24 Dose: 100 mg Donepezil HCl (Aricept) 10 mg PO HS [facility] Stop: 02/18/19 20:59 Last Admin: 12/24/18 20:34 Dose: 10 mg Lorazepam (Ativan) 0.5 mg PO Q4HR PRN; Protocol PRN Reason: Anxiety Stop: 01/18/19 22:51 Memantine (Namenda) 10 mg PO BID [facility] Stop: 02/18/19 08:59 Last Admin: 12/25/18 16:23 Dose: 10 mg Timolol Maleate (Timoptic 0.5% Ophth Soln) 1 drop EACH EYE BID [facility] Stop: 02/18/19 08:59 Last Admin: 12/25/18 16:24 Dose: 1 drop Zolpidem Tartrate (Ambien) 5 mg PO HS PRN PRN Reason: Insomnia Stop: 02/17/19 22:54 Last Admin: 12/24/18 20:35 Dose: 5 mg General: demented HEENT: NC/AT, PERRLA, EOMI, anicteric sclerae, throat clear Neck: Supple, No JVD, No thyromegaly, +2 carotid pulse wo bruit, No LAD Lungs: CTAB Cardiovascular: RRR, Normal S1, Normal S2, without murmur Abdomen: soft, non-tender, non-distended Extremities: clear Neurological: no change Internal Medicine Assmt/Plan - Assessment Assessment: 1.HYPERLIPIDEMIA. 2.DJD. 3.DEMENTIA. 4.PSYCHOSIS - Plan Plan: CONTINUE ON CURRENT MEDICATION AND DIET Nutritional Asmnt/Malnutr-PDOC - Dietary Evaluation Malnutrition Findings (Please click <Entered> for more info): Nutritional Asmnt/Malnutrition Start: 12/23/18 13: 06 Text: Status: Complete Freq: Protocol: Document 12/23/18 13:06 BIRGIT (Rec: 12/23/18 13:14 BIRGIT [email or web address]) Nutritional Asmnt/Malnutrition Patient General Information Nutritional Screening Moderate Risk Diagnosis Psychosis Pertinent Medical Hx/Surgical Hx DM, CVA/TIA, Arthritis, Status post UTI, Psychosis, Traumatic brain injury, Hypokalemia, Hyperlipidemia, Degenerative joint disease, dementia, glaucoma Subjective Information Pt is a 68-year-old male from extended care facility admitted on 12/19 c/o increased agitation and aggressive behavior. Pt is currently eating an estimated 80% meals x 3 days per Meal/Nutrition Activity Record. HT: 55 WT: 171 LB (77.73 kg) ADJ BW: 68 kg BMI: 28.52 (Overweight) GI: WNL, Flat, Non-Tender BM: 12/23 x 1 I/O: 1320/Not Noted Skin: WNL, Intact Ernst: 22 Diet Order: CCHO 60 gm Estimated Energy Needs: ( Overweight, ADJ BW) 8634-1854 kcals (20-25 kcals/ kg) 55-61 g Pro (0.8-0.9 g/kg) 1463-5355 ml (25-30 ml/kg) Pt is currently eating an estimated 80% meals x 3 days per Meal/Nutrition Activity Record. Dietary is currently providing an estimated 2015 kcals and 93 gm Pro. Per Pt PO intake, this is providing an estimated 1600 kcals and 74 gm Pro, to meet 100% kcal and 100% Pro needs - Adequate. Current Diet Order/ Nutrition Support CCHO 60 gm Pertinent Medications Vitamin D3, Colace Pertinent Labs 12/19: Hgb/Hct 13.4/39.7, Glucose 112, Alb 4.0 Nutritional Hx/Data Height 1.65 m Height (Calculated Centimeters) 165.1 Current Weight (lbs) 77.564 kg Weight (Calculated Kilograms) 77.6 Weight (Calculated Grams) 46869.3 [place] Body Weight 61.5 kg % [place] Body Weight 126 Body Mass Index (BMI) 28.4 Weight Status Overweight GI Symptoms GI Symptoms None Last BM 12/23 x 1 Skin Integrity/Comment: WNL, Intact Ernst: 22 Current %PO Good (75-100%) Estimated Nutritional Goals BEE in Kcals: Adj wt of IBW Calories/Kcals/Kg 20-25 Kcals Calculated 1535-6483 Protein: Adj wt of IBW Protein g/k.8-0.9 Protein Calculated 55-61 Fluid: ml 7150-1085 ml (25-30 ml/kg) Nutritional Problem No current Nutrition Prob Problem N/A Etiology N/A Signs/Symptoms: N/A Malnutrition Related to Morbid Obesity Malnutrition related to morbid obesity No Intervention/Recommendation Comments 1. Continue CCHO 60 gm diet as ordered. Expected Outcomes/Goals Expected Outcomes/Goals 1. PO intake to continue to meet >75% of nutritional needs . 2. Monitor PO intake, wt, nutrition related labs and skin integrity. 3. F/U as low risk in 7 days, 12/30
--- NOTE | 2018-12-26 17:26 | Internal Medicine Prog Note ---
Internal Medicine Subjective - Subjective Service Date: 12/26/18 Patient seen and examined:: without staff (HE IS NOT COHERENT) Patient is:: awake, in bed, confused Per staff patient has:: no adverse event Internal Medicine Objective - Results Result Diagrams: 12/19/18 20:35 12/19/18 20:35 Recent Labs: Laboratory Last Values WBC 5.3 Th/cmm (4.8-10.8) 12/19/18 20:35 RBC 4.54 Mil/cmm (3.80-5.80) 12/19/18 20:35 Hgb 13.4 gm/dL (12-16) 12/19/18 20:35 Hct 39.7 % (41.0-60) L 12/19/18 20:35 MCV 87.5 fl (80-99) 12/19/18 20:35 MCH 29.5 pg (27.0-31.0) 12/19/18 20:35 MCHC Differential 33.8 pg (28.0-36.0) 12/19/18 20:35 RDW 13.6 % (11.5-20.0) 12/19/18 20:35 Plt Count 187 Th/cmm (150-400) 12/19/18 20:35 MPV 8.3 fl 12/19/18 20:35 Neutrophils % 65.0 % (40.0-80.0) 12/19/18 20:35 Lymphocytes % 23.7 % (20.0-50.0) 12/19/18 20:35 Monocytes % 8.4 % (2.0-10.0) 12/19/18 20:35 Eosinophils % 2.4 % (0.0-5.0) 12/19/18 20:35 Basophils % 0.5 % (0.0-2.0) 12/19/18 20:35 Sodium 138 mEq/L (136-145) 12/19/18 20:35 Potassium 4.1 mEq/L (3.5-5.1) 12/19/18 20:35 Chloride 104 mEq/L (98-107) 12/19/18 20:35 Carbon Dioxide 27.0 mEq/L (21.0-31.0) 12/19/18 20:35 Anion Gap 11.1 (7.0-16.0) 12/19/18 20:35 BUN 21 mg/dL (7-25) 12/19/18 20:35 Creatinine 1.0 mg/dL (0.7-1.3) 12/19/18 20:35 Est GFR ( Amer) > 60.0 ml/min (>90) 12/19/18 20:35 Est GFR (Non-Af Amer) > 60.0 ml/min 12/19/18 20:35 BUN/Creatinine Ratio 21.0 12/19/18 20:35 Glucose 112 mg/dL (70-105) H 12/19/18 20:35 Calcium 9.2 mg/dL (8.6-10.3) 12/19/18 20:35 Total Bilirubin 0.8 mg/dL (0.3-1.0) 12/19/18 20:35 AST 13 U/L (13-39) 12/19/18 20:35 ALT 10 U/L (7-52) 12/19/18 20:35 Alkaline Phosphatase 86 U/L (34-104) 12/19/18 20:35 Total Protein 6.5 gm/dL (6.0-8.3) 12/19/18 20:35 Albumin 4.0 gm/dL (4.2-5.5) L 12/19/18 20:35 Globulin 2.5 gm/dL 12/19/18 20:35 Albumin/Globulin Ratio 1.6 (1.0-1.8) 12/19/18 20:35 Triglycerides 115 mg/dL (<150) 12/20/18 05:15 Cholesterol 168 mg/dL (<200) 12/20/18 05:15 LDL Cholesterol Direct 127 mg/dL (75-193) 12/20/18 05:15 HDL Cholesterol 34 mg/dL (23-92) 12/20/18 05:15 TSH 1.47 uIU/ml (0.34-5.60) 12/19/18 20:35 Urine Source CLEAN C 12/19/18 20:35 Urine Color COLORLESS 12/19/18 20:35 Urine Clarity CLEAR (CLEAR) 12/19/18 20:35 Urine pH 5.0 (4.6 - 8.0) 12/19/18 20:35 Ur Specific [employer] 1.015 (1.005-1.030) 12/19/18 20:35 Urine Protein NEGATIVE mg/dL (NEGATIVE) 12/19/18 20:35 Urine Glucose (UA) NEGATIVE mg/dL (NEGATIVE) 12/19/18 20:35 Urine Ketones NEGATIVE mg/dL (NEGATIVE) 12/19/18 20:35 Urine Blood TRACE (NEGATIVE) 12/19/18 20:35 Urine Nitrate NEGATIVE (NEGATIVE) 12/19/18 20:35 Urine Bilirubin NEGATIVE (NEGATIVE) 12/19/18 20:35 Urine Urobilinogen 0.2 E.U./dL (0.2 - 1.0) 12/19/18 20:35 Ur Leukocyte Esterase NEGATIVE (NEGATIVE) 12/19/18 20:35 Urine RBC NONE SEEN /hpf (0-5) 12/19/18 20:35 Urine WBC 0-2 /hpf (0-5) 12/19/18 20:35 Ur Epithelial Cells NONE SEEN /lpf (FEW) 12/19/18 20:35 Urine Bacteria NONE SEEN /hpf (NONE SEEN) 12/19/18 20:35 RPR NONREACTIVE (NONREACTIVE) 12/19/18 20:35 - Physical Exam Vitals and I&O: Vital Signs Temp 98.8 F 12/26/18 14:00 Pulse 91 12/26/18 14:00 Resp 20 12/26/18 14:00 BP 127/82 12/26/18 14:00 Pulse Ox 99 12/26/18 14:00 Intake & Output 12/25/18 12/26/18 12/26/18 18:59 06:59 18:59 Intake Total 1400 240 Balance 1400 240 Intake: Oral 1400 240 Other: # Voids 4 1 # Bowel Movements 1 0 Active Medications: Current Medications Acetaminophen (Tylenol) 650 mg PO Q4HR PRN PRN Reason: PAIN Stop: 02/17/19 22:57 Last Admin: 12/26/18 14:32 Dose: 650 mg Aripiprazole (Abilify) 5 mg PO DAILY [facility]; Protocol Stop: 02/19/19 08:59 Last Admin: 12/26/18 09:47 Dose: 5 mg Cholecalciferol (Vitamin D3) 3,000 iu PO DAILY [facility] Stop: 02/18/19 08:59 Last Admin: 12/26/18 09:47 Dose: 3,000 iu Docusate Sodium (Colace) 100 mg PO BID [facility] Stop: 02/18/19 08:59 Last Admin: 12/26/18 09:47 Dose: 100 mg Donepezil HCl (Aricept) 10 mg PO HS [facility] Stop: 02/18/19 20:59 Last Admin: 12/25/18 21:20 Dose: 10 mg Lorazepam (Ativan) 0.5 mg PO Q4HR PRN; Protocol PRN Reason: Anxiety Stop: 01/18/19 22:51 Last Admin: 12/26/18 09:47 Dose: 0.5 mg Memantine (Namenda) 10 mg PO BID [facility] Stop: 02/18/19 08:59 Last Admin: 12/26/18 09:47 Dose: 10 mg Timolol Maleate (Timoptic 0.5% Oph Soln) 1 drop EACH EYE BID [facility] Stop: 02/18/19 08:59 Last Admin: 12/26/18 09:47 Dose: 1 drop Zolpidem Tartrate (Ambien) 5 mg PO HS PRN PRN Reason: Insomnia Stop: 02/17/19 22:54 Last Admin: 12/25/18 21:20 Dose: 5 mg General: demented HEENT: NC/AT, PERRLA, EOMI, anicteric sclerae, throat clear Neck: Supple, No JVD, No thyromegaly, +2 carotid pulse wo bruit, No LAD Lungs: CTAB Cardiovascular: RRR, Normal S1, Normal S2, without murmur Abdomen: soft, non-tender, non-distended Extremities: clear Neurological: no change Internal Medicine Assmt/Plan - Assessment Assessment: 1.HYPERLIPIDEMIA. 2.DJD. 3.DEMENTIA. 4.PSYCHOSIS - Plan Plan: CONTINUE ON CURRENT MEDICATION AND DIET Nutritional Asmnt/Malnutr-PDOC - Dietary Evaluation Malnutrition Findings (Please click <Entered> for more info): Nutritional Asmnt/Malnutrition Start: 12/23/18 13: 06 Text: Status: Complete Freq: Protocol: Document 12/23/18 13:06 BIRGIT (Rec: 12/23/18 13:14 [id number]) Nutritional Asmnt/Malnutrition Patient General Information Nutritional Screening Moderate Risk Diagnosis Psychosis Pertinent Medical Hx/Surgical Hx DM, CVA/TIA, Arthritis, Status post UTI, Psychosis, Traumatic brain injury, Hypokalemia, Hyperlipidemia, Degenerative joint disease, dementia, glaucoma Subjective Information Pt is a 68-year-old male from extended care facility admitted on 12/19 c/o increased agitation and aggressive behavior. Pt is currently eating an estimated 80% meals x 3 days per Meal/Nutrition Activity Record. HT: 55 WT: 171 LB (77.73 kg) ADJ BW: 68 kg BMI: 28.52 (Overweight) GI: WNL, Flat, Non-Tender BM: 12/23 x 1 I/O: 1320/Not Noted Skin: WNL, Intact Ernst: 22 Diet Order: CCHO 60 gm Estimated Energy Needs: ( Overweight, ADJ BW) 3775-6914 kcals (20-25 kcals/ kg) 55-61 g Pro (0.8-0.9 g/kg) 1171-4946 ml (25-30 ml/kg) Pt is currently eating an estimated 80% meals x 3 days per Meal/Nutrition Activity Record. Dietary is currently providing an estimated 2015 kcals and 93 gm Pro. Per Pt PO intake, this is providing an estimated 1600 kcals and 74 gm Pro, to meet 100% kcal and 100% Pro needs - Adequate. Current Diet Order/ Nutrition Support CCHO 60 gm Pertinent Medications Vitamin D3, Colace Pertinent Labs 12/19: Hgb/Hct 13.4/39.7, Glucose 112, Alb 4.0 Nutritional Hx/Data Height 1.65 m Height (Calculated Centimeters) 165.1 Current Weight (lbs) 77.564 kg Weight (Calculated Kilograms) 77.6 Weight (Calculated Grams) 68664.3 [place] Body Weight 61.5 kg % [place] Body Weight 126 Body Mass Index (BMI) 28.4 Weight Status Overweight GI Symptoms GI Symptoms None Last BM 12/23 x 1 Skin Integrity/Comment: WNL, Intact Ernst: 22 Current %PO Good (75-100%) Estimated Nutritional Goals BEE in Kcals: Adj wt of IBW Calories/Kcals/Kg 20-25 Kcals Calculated 6895-3030 Protein: Adj wt of IBW Protein g/k.8-0.9 Protein Calculated 55-61 Fluid: ml 5631-8717 ml (25-30 ml/kg) Nutritional Problem No current Nutrition Prob Problem N/A Etiology N/A Signs/Symptoms: N/A Malnutrition Related to Morbid Obesity Malnutrition related to morbid obesity No Intervention/Recommendation Comments 1. Continue CCHO 60 gm diet as ordered. Expected Outcomes/Goals Expected Outcomes/Goals 1. PO intake to continue to meet >75% of nutritional needs . 2. Monitor PO intake, wt, nutrition related labs and skin integrity. 3. F/U as low risk in 7 days, 12/30
--- NOTE | 2018-12-26 23:14 | Progress Notes ---
DATE: 12/26/2018 SUBJECTIVE: Case was discussed with staff of the patient, reviewed records. The patient continues to be unpredictable, impulsive, needing redirection. He continues to have poor insight. At times, paranoid, irritated anxious, sleeping better, eating better. No side effects with the medication, no sedation, no nausea, no extrapyramidal symptoms. PLAN: I will continue outpatient group therapy, milieu therapy, adjust medication as needed. [facility]# [id number]
--- NOTE | 2018-12-27 18:02 | Internal Medicine Prog Note ---
Internal Medicine Subjective - Subjective Service Date: 12/27/18 Patient seen and examined:: without staff (HE IS BETTER) Patient is:: awake, in bed, confused Per staff patient has:: no adverse event Internal Medicine Objective - Results Result Diagrams: 12/19/18 20:35 12/19/18 20:35 Recent Labs: Laboratory Last Values WBC 5.3 Th/cmm (4.8-10.8) 12/19/18 20:35 RBC 4.54 Mil/cmm (3.80-5.80) 12/19/18 20:35 Hgb 13.4 gm/dL (12-16) 12/19/18 20:35 Hct 39.7 % (41.0-60) L 12/19/18 20:35 MCV 87.5 fl (80-99) 12/19/18 20:35 MCH 29.5 pg (27.0-31.0) 12/19/18 20:35 MCHC Differential 33.8 pg (28.0-36.0) 12/19/18 20:35 RDW 13.6 % (11.5-20.0) 12/19/18 20:35 Plt Count 187 Th/cmm (150-400) 12/19/18 20:35 MPV 8.3 fl 12/19/18 20:35 Neutrophils % 65.0 % (40.0-80.0) 12/19/18 20:35 Lymphocytes % 23.7 % (20.0-50.0) 12/19/18 20:35 Monocytes % 8.4 % (2.0-10.0) 12/19/18 20:35 Eosinophils % 2.4 % (0.0-5.0) 12/19/18 20:35 Basophils % 0.5 % (0.0-2.0) 12/19/18 20:35 Sodium 138 mEq/L (136-145) 12/19/18 20:35 Potassium 4.1 mEq/L (3.5-5.1) 12/19/18 20:35 Chloride 104 mEq/L (98-107) 12/19/18 20:35 Carbon Dioxide 27.0 mEq/L (21.0-31.0) 12/19/18 20:35 Anion Gap 11.1 (7.0-16.0) 12/19/18 20:35 BUN 21 mg/dL (7-25) 12/19/18 20:35 Creatinine 1.0 mg/dL (0.7-1.3) 12/19/18 20:35 Est GFR ( Amer) > 60.0 ml/min (>90) 12/19/18 20:35 Est GFR (Non-Af Amer) > 60.0 ml/min 12/19/18 20:35 BUN/Creatinine Ratio 21.0 12/19/18 20:35 Glucose 112 mg/dL (70-105) H 12/19/18 20:35 Calcium 9.2 mg/dL (8.6-10.3) 12/19/18 20:35 Total Bilirubin 0.8 mg/dL (0.3-1.0) 12/19/18 20:35 AST 13 U/L (13-39) 12/19/18 20:35 ALT 10 U/L (7-52) 12/19/18 20:35 Alkaline Phosphatase 86 U/L (34-104) 12/19/18 20:35 Total Protein 6.5 gm/dL (6.0-8.3) 12/19/18 20:35 Albumin 4.0 gm/dL (4.2-5.5) L 12/19/18 20:35 Globulin 2.5 gm/dL 12/19/18 20:35 Albumin/Globulin Ratio 1.6 (1.0-1.8) 12/19/18 20:35 Triglycerides 115 mg/dL (<150) 12/20/18 05:15 Cholesterol 168 mg/dL (<200) 12/20/18 05:15 LDL Cholesterol Direct 127 mg/dL (75-193) 12/20/18 05:15 HDL Cholesterol 34 mg/dL (23-92) 12/20/18 05:15 TSH 1.47 uIU/ml (0.34-5.60) 12/19/18 20:35 Urine Source CLEAN C 12/19/18 20:35 Urine Color COLORLESS 12/19/18 20:35 Urine Clarity CLEAR (CLEAR) 12/19/18 20:35 Urine pH 5.0 (4.6 - 8.0) 12/19/18 20:35 Ur Specific [place] 1.015 (1.005-1.030) 12/19/18 20:35 Urine Protein NEGATIVE mg/dL (NEGATIVE) 12/19/18 20:35 Urine Glucose (UA) NEGATIVE mg/dL (NEGATIVE) 12/19/18 20:35 Urine Ketones NEGATIVE mg/dL (NEGATIVE) 12/19/18 20:35 Urine Blood TRACE (NEGATIVE) 12/19/18 20:35 Urine Nitrate NEGATIVE (NEGATIVE) 12/19/18 20:35 Urine Bilirubin NEGATIVE (NEGATIVE) 12/19/18 20:35 Urine Urobilinogen 0.2 E.U./dL (0.2 - 1.0) 12/19/18 20:35 Ur Leukocyte Esterase NEGATIVE (NEGATIVE) 12/19/18 20:35 Urine RBC NONE SEEN /hpf (0-5) 12/19/18 20:35 Urine WBC 0-2 /hpf (0-5) 12/19/18 20:35 Ur Epithelial Cells NONE SEEN /lpf (FEW) 12/19/18 20:35 Urine Bacteria NONE SEEN /hpf (NONE SEEN) 12/19/18 20:35 RPR NONREACTIVE (NONREACTIVE) 12/19/18 20:35 - Physical Exam Vitals and I&O: Vital Signs Temp 97.7 F 12/27/18 14:00 Pulse 82 12/27/18 14:00 Resp 20 12/27/18 14:00 BP 120/76 12/27/18 14:00 Pulse Ox 98 12/27/18 14:00 Intake & Output 12/26/18 12/27/18 12/27/18 18:59 06:59 18:59 Intake Total 1600 120 Balance 1600 120 Intake: Oral 1600 120 Other: # Voids 4 3 # Bowel Movements 1 Active Medications: Current Medications Acetaminophen (Tylenol) 650 mg PO Q4HR PRN PRN Reason: PAIN Stop: 02/17/19 22:57 Last Admin: 12/26/18 14:32 Dose: 650 mg Aripiprazole (Abilify) 7.5 mg PO DAILY [facility]; Protocol Stop: 02/26/19 08:59 Cholecalciferol (Vitamin D3) 3,000 iu PO DAILY [facility] Stop: 02/18/19 08:59 Last Admin: 12/27/18 08:30 Dose: 3,000 iu Docusate Sodium (Colace) 100 mg PO BID [facility] Stop: 02/18/19 08:59 Last Admin: 12/27/18 17:00 Dose: 100 mg Donepezil HCl (Aricept) 10 mg PO HS [facility] Stop: 02/18/19 20:59 Last Admin: 12/26/18 21:11 Dose: 10 mg Lorazepam (Ativan) 0.5 mg PO Q4HR PRN; Protocol PRN Reason: Anxiety Stop: 02/25/19 12:27 Memantine (Namenda) 10 mg PO BID [facility] Stop: 02/18/19 08:59 Last Admin: 12/27/18 17:00 Dose: 10 mg Timolol Maleate (Timoptic 0.5% Ophth Soln) 1 drop EACH EYE BID [facility] Stop: 02/18/19 08:59 Last Admin: 12/27/18 17:00 Dose: 1 drop Zolpidem Tartrate (Ambien) 5 mg PO HS PRN PRN Reason: Insomnia Stop: 02/25/19 12:29 General: demented HEENT: NC/AT, PERRLA, EOMI, anicteric sclerae, throat clear Neck: Supple, No JVD, No thyromegaly, +2 carotid pulse wo bruit, No LAD Lungs: CTAB Cardiovascular: RRR, Normal S1, Normal S2, without murmur Abdomen: soft, non-tender, non-distended Extremities: clear Neurological: no change Internal Medicine Assmt/Plan - Assessment Assessment: 1.HYPERLIPIDEMIA. 2.DJD. 3.DEMENTIA. 4.PSYCHOSIS - Plan Plan: CONTINUE ON CURRENT MEDICATION AND DIET Nutritional Asmnt/Malnutr-PDOC - Dietary Evaluation Malnutrition Findings (Please click <Entered> for more info): Nutritional Asmnt/Malnutrition Start: 12/23/18 13: 06 Text: Status: Complete Freq: Protocol: Document 12/23/18 13:06 BIRGIT (Rec: 12/23/18 13:14 BIRGIT [email or web address]) Nutritional Asmnt/Malnutrition Patient General Information Nutritional Screening Moderate Risk Diagnosis Psychosis Pertinent Medical Hx/Surgical Hx DM, CVA/TIA, Arthritis, Status post UTI, Psychosis, Traumatic brain injury, Hypokalemia, Hyperlipidemia, Degenerative joint disease, dementia, glaucoma Subjective Information Pt is a 68-year-old male from extended care facility admitted on 12/19 c/o increased agitation and aggressive behavior. Pt is currently eating an estimated 80% meals x 3 days per Meal/Nutrition Activity Record. HT: 55 WT: 171 LB (77.73 kg) ADJ BW: 68 kg BMI: 28.52 (Overweight) GI: WNL, Flat, Non-Tender BM: 12/23 x 1 I/O: 1320/Not Noted Skin: WNL, Intact Ernst: 22 Diet Order: CCHO 60 gm Estimated Energy Needs: ( Overweight, ADJ BW) 5523-9727 kcals (20-25 kcals/ kg) 55-61 g Pro (0.8-0.9 g/kg) 3102-2703 ml (25-30 ml/kg) Pt is currently eating an estimated 80% meals x 3 days per Meal/Nutrition Activity Record. Dietary is currently providing an estimated 2015 kcals and 93 gm Pro. Per Pt PO intake, this is providing an estimated 1600 kcals and 74 gm Pro, to meet 100% kcal and 100% Pro needs - Adequate. Current Diet Order/ Nutrition Support CCHO 60 gm Pertinent Medications Vitamin D3, Colace Pertinent Labs 12/19: Hgb/Hct 13.4/39.7, Glucose 112, Alb 4.0 Nutritional Hx/Data Height 1.65 m Height (Calculated Centimeters) 165.1 Current Weight (lbs) 77.564 kg Weight (Calculated Kilograms) 77.6 Weight (Calculated Grams) 86227.3 [place] Body Weight 61.5 kg % [place] Body Weight 126 Body Mass Index (BMI) 28.4 Weight Status Overweight GI Symptoms GI Symptoms None Last BM 12/23 x 1 Skin Integrity/Comment: WNL, Intact Ernst: 22 Current %PO Good (75-100%) Estimated Nutritional Goals BEE in Kcals: Adj wt of IBW Calories/Kcals/Kg 20-25 Kcals Calculated 1562-5526 Protein: Adj wt of IBW Protein g/k.8-0.9 Protein Calculated 55-61 Fluid: ml 4802-9093 ml (25-30 ml/kg) Nutritional Problem No current Nutrition Prob Problem N/A Etiology N/A Signs/Symptoms: N/A Malnutrition Related to Morbid Obesity Malnutrition related to morbid obesity No Intervention/Recommendation Comments 1. Continue CCHO 60 gm diet as ordered. Expected Outcomes/Goals Expected Outcomes/Goals 1. PO intake to continue to meet >75% of nutritional needs . 2. Monitor PO intake, wt, nutrition related labs and skin integrity. 3. F/U as low risk in 7 days, 12/30
--- NOTE | 2018-12-28 00:55 | Progress Notes ---
DATE: 12/27/2018 Case was discussed with staff of the patient, reviewed records. The patient is starting to get out of the room. He is not talking much, internally preoccupied. Continues to have poor insight, unpredictable, impulsive, sometimes restless, pacing the unit. He is sleeping better, eating better. I will be increasing his Abilify to 7.5 mg daily to help improve his paranoia, no side effects with the medication, no sedation, no nausea, no extrapyramidal symptoms. We will continue to work with the patient in group therapy, milieu therapy, and adjust the medication as needed. JOB# [id number]
--- NOTE | 2018-12-28 15:19 | General Progress Note ---
Subjective - Review of Systems Service Date: 12/28/18 Subjective: resting comfortably no distress Objective - Results Result Diagrams: 12/19/18 20:35 12/19/18 20:35 Recent Labs: Laboratory Last Values WBC 5.3 Th/cmm (4.8-10.8) 12/19/18 20:35 RBC 4.54 Mil/cmm (3.80-5.80) 12/19/18 20:35 Hgb 13.4 gm/dL (12-16) 12/19/18 20:35 Hct 39.7 % (41.0-60) L 12/19/18 20:35 MCV 87.5 fl (80-99) 12/19/18 20:35 MCH 29.5 pg (27.0-31.0) 12/19/18 20:35 MCHC Differential 33.8 pg (28.0-36.0) 12/19/18 20:35 RDW 13.6 % (11.5-20.0) 12/19/18 20:35 Plt Count 187 Th/cmm (150-400) 12/19/18 20:35 MPV 8.3 fl 12/19/18 20:35 Neutrophils % 65.0 % (40.0-80.0) 12/19/18 20:35 Lymphocytes % 23.7 % (20.0-50.0) 12/19/18 20:35 Monocytes % 8.4 % (2.0-10.0) 12/19/18 20:35 Eosinophils % 2.4 % (0.0-5.0) 12/19/18 20:35 Basophils % 0.5 % (0.0-2.0) 12/19/18 20:35 Sodium 138 mEq/L (136-145) 12/19/18 20:35 Potassium 4.1 mEq/L (3.5-5.1) 12/19/18 20:35 Chloride 104 mEq/L (98-107) 12/19/18 20:35 Carbon Dioxide 27.0 mEq/L (21.0-31.0) 12/19/18 20:35 Anion Gap 11.1 (7.0-16.0) 12/19/18 20:35 BUN 21 mg/dL (7-25) 12/19/18 20:35 Creatinine 1.0 mg/dL (0.7-1.3) 12/19/18 20:35 Est GFR ( Amer) > 60.0 ml/min (>90) 12/19/18 20:35 Est GFR (Non-Af Amer) > 60.0 ml/min 12/19/18 20:35 BUN/Creatinine Ratio 21.0 12/19/18 20:35 Glucose 112 mg/dL (70-105) H 12/19/18 20:35 Calcium 9.2 mg/dL (8.6-10.3) 12/19/18 20:35 Total Bilirubin 0.8 mg/dL (0.3-1.0) 12/19/18 20:35 AST 13 U/L (13-39) 12/19/18 20:35 ALT 10 U/L (7-52) 12/19/18 20:35 Alkaline Phosphatase 86 U/L (34-104) 12/19/18 20:35 Total Protein 6.5 gm/dL (6.0-8.3) 12/19/18 20:35 Albumin 4.0 gm/dL (4.2-5.5) L 12/19/18 20:35 Globulin 2.5 gm/dL 12/19/18 20:35 Albumin/Globulin Ratio 1.6 (1.0-1.8) 12/19/18 20:35 Triglycerides 115 mg/dL (<150) 12/20/18 05:15 Cholesterol 168 mg/dL (<200) 12/20/18 05:15 LDL Cholesterol Direct 127 mg/dL (75-193) 12/20/18 05:15 HDL Cholesterol 34 mg/dL (23-92) 12/20/18 05:15 TSH 1.47 uIU/ml (0.34-5.60) 12/19/18 20:35 Urine Source CLEAN C 12/19/18 20:35 Urine Color COLORLESS 12/19/18 20:35 Urine Clarity CLEAR (CLEAR) 12/19/18 20:35 Urine pH 5.0 (4.6 - 8.0) 12/19/18 20:35 Ur Specific [place] 1.015 (1.005-1.030) 12/19/18 20:35 Urine Protein NEGATIVE mg/dL (NEGATIVE) 12/19/18 20:35 Urine Glucose (UA) NEGATIVE mg/dL (NEGATIVE) 12/19/18 20:35 Urine Ketones NEGATIVE mg/dL (NEGATIVE) 12/19/18 20:35 Urine Blood TRACE (NEGATIVE) 12/19/18 20:35 Urine Nitrate NEGATIVE (NEGATIVE) 12/19/18 20:35 Urine Bilirubin NEGATIVE (NEGATIVE) 12/19/18 20:35 Urine Urobilinogen 0.2 E.U./dL (0.2 - 1.0) 12/19/18 20:35 Ur Leukocyte Esterase NEGATIVE (NEGATIVE) 12/19/18 20:35 Urine RBC NONE SEEN /hpf (0-5) 12/19/18 20:35 Urine WBC 0-2 /hpf (0-5) 12/19/18 20:35 Ur Epithelial Cells NONE SEEN /lpf (FEW) 12/19/18 20:35 Urine Bacteria NONE SEEN /hpf (NONE SEEN) 12/19/18 20:35 RPR NONREACTIVE (NONREACTIVE) 12/19/18 20:35 - Physical Exam Vitals and I&O: Vital Signs Temp 97.8 F 12/28/18 15:11 Pulse 91 12/28/18 15:11 Resp 18 12/28/18 15:11 BP 137/82 12/28/18 15:11 Pulse Ox 98 12/28/18 15:11 Intake & Output 12/27/18 12/28/18 12/28/18 18:59 06:59 18:59 Intake Total 900 1200 Balance 900 1200 Intake: Oral 900 1200 Other: # Voids 3 2 # Bowel Movements 1 Active Medications: Current Medications Acetaminophen (Tylenol) 650 mg PO Q4HR PRN PRN Reason: PAIN Stop: 02/17/19 22:57 Last Admin: 12/26/18 14:32 Dose: 650 mg Aripiprazole (Abilify) 7.5 mg PO DAILY [facility]; Protocol Stop: 02/26/19 08:59 Last Admin: 12/28/18 08:45 Dose: 7.5 mg Cholecalciferol (Vitamin D3) 3,000 iu PO DAILY [facility] Stop: 02/18/19 08:59 Last Admin: 12/28/18 08:45 Dose: 3,000 iu Docusate Sodium (Colace) 100 mg PO BID [facility] Stop: 02/18/19 08:59 Last Admin: 12/28/18 08:45 Dose: 100 mg Donepezil HCl (Aricept) 10 mg PO HS [facility] Stop: 02/18/19 20:59 Last Admin: 12/27/18 20:54 Dose: 10 mg Lorazepam (Ativan) 0.5 mg PO Q4HR PRN; Protocol PRN Reason: Anxiety Stop: 02/25/19 12:27 Memantine (Namenda) 10 mg PO BID [facility] Stop: 02/18/19 08:59 Last Admin: 12/28/18 08:45 Dose: 10 mg Timolol Maleate (Timoptic 0.5% Ophth Soln) 1 drop EACH EYE BID [facility] Stop: 02/18/19 08:59 Last Admin: 12/28/18 08:45 Dose: 1 drop Zolpidem Tartrate (Ambien) 5 mg PO HS PRN PRN Reason: Insomnia Stop: 02/25/19 12:29 Last Admin: 12/27/18 20:52 Dose: 5 mg General: No acute distress HEENT: PERRLA Neck: Supple, JVD Cardiovascular: Regular rate, Normal S1, Normal S2 Lungs: Clear to auscultation Abdomen: Bowel sounds, Soft Assessment/Plan - Assessment Assessment: 1.HYPERLIPIDEMIA. 2.DJD. 3.DEMENTIA. 4.PSYCHOSIS - Plan Plan: continue current treatment Nutritional Asmnt/Malnutr-PDOC - Dietary Evaluation Malnutrition Findings (Please click <Entered> for more info): Nutritional Asmnt/Malnutrition Start: 12/23/18 13: 06 Text: Status: Complete Freq: Protocol: Document 12/23/18 13:06 BIRGIT (Rec: 12/23/18 13:14 BIRGIT [email or web address]) Nutritional Asmnt/Malnutrition Patient General Information Nutritional Screening Moderate Risk Diagnosis Psychosis Pertinent Medical Hx/Surgical Hx DM, CVA/TIA, Arthritis, Status post UTI, Psychosis, Traumatic brain injury, Hypokalemia, Hyperlipidemia, Degenerative joint disease, dementia, glaucoma Subjective Information Pt is a 68-year-old male from extended care facility admitted on 12/19 c/o increased agitation and aggressive behavior. Pt is currently eating an estimated 80% meals x 3 days per Meal/Nutrition Activity Record. HT: 55 WT: 171 LB (77.73 kg) ADJ BW: 68 kg BMI: 28.52 (Overweight) GI: WNL, Flat, Non-Tender BM: 12/23 x 1 I/O: 1320/Not Noted Skin: WNL, Intact Ernst: 22 Diet Order: CCHO 60 gm Estimated Energy Needs: ( Overweight, ADJ BW) 4973-6511 kcals (20-25 kcals/ kg) 55-61 g Pro (0.8-0.9 g/kg) 1817-2285 ml (25-30 ml/kg) Pt is currently eating an estimated 80% meals x 3 days per Meal/Nutrition Activity Record. Dietary is currently providing an estimated 2015 kcals and 93 gm Pro. Per Pt PO intake, this is providing an estimated 1600 kcals and 74 gm Pro, to meet 100% kcal and 100% Pro needs - Adequate. Current Diet Order/ Nutrition Support CCHO 60 gm Pertinent Medications Vitamin D3, Colace Pertinent Labs 12/19: Hgb/Hct 13.4/39.7, Glucose 112, Alb 4.0 Nutritional Hx/Data Height 1.65 m Height (Calculated Centimeters) 165.1 Current Weight (lbs) 77.564 kg Weight (Calculated Kilograms) 77.6 Weight (Calculated Grams) 66190.3 Kiel Body Weight 61.5 kg % Kiel Body Weight 126 Body Mass Index (BMI) 28.4 Weight Status Overweight GI Symptoms GI Symptoms None Last BM 12/23 x 1 Skin Integrity/Comment: WNL, Intact Ernst: 22 Current %PO Good (75-100%) Estimated Nutritional Goals BEE in Kcals: Adj wt of IBW Calories/Kcals/Kg 20-25 Kcals Calculated 1703-7337 Protein: Adj wt of IBW Protein g/k.8-0.9 Protein Calculated 55-61 Fluid: ml 2907-6878 ml (25-30 ml/kg) Nutritional Problem No current Nutrition Prob Problem N/A Etiology N/A Signs/Symptoms: N/A Malnutrition Related to Morbid Obesity Malnutrition related to morbid obesity No Intervention/Recommendation Comments 1. Continue CCHO 60 gm diet as ordered. Expected Outcomes/Goals Expected Outcomes/Goals 1. PO intake to continue to meet >75% of nutritional needs . 2. Monitor PO intake, wt, nutrition related labs and skin integrity. 3. F/U as low risk in 7 days, 12/30
--- NOTE | 2018-12-28 16:17 | Progress Notes ---
DATE: 12/28/2018 SUBJECTIVE: Case was discussed with staff of the patient, reviewed records. The patient is reported by the staff to be sexually inappropriate, touching female patients, continues to have poor insight, continues to need redirection, and looking somewhat disheveled. I did increase Abilify dose yesterday, so I will give it more time to work. No side effects of the medication, no sedation, no nausea, no extrapyramidal symptoms. We will continue outpatient group therapy, milieu therapy, and adjust medication as needed. JOB# [id number]
--- NOTE | 2018-12-29 12:38 | Progress Notes ---
DATE: 12/29/2018 Case was discussed with staff of the patient, reviewed records. The patient tolerated increase in Abilify. He is more animated. He is sleeping better, eating better. No side effects with the medication, no sedation, no nausea, no extrapyramidal symptoms, working on discharge plans. We will continue the patient in group therapy, milieu therapy, adjust the medication as needed. [facility]# [id number]
--- NOTE | 2018-12-29 21:15 | General Progress Note ---
Subjective - Review of Systems Service Date: 12/29/18 Subjective: resting comfortably no distress Objective - Results Result Diagrams: 12/19/18 20:35 12/19/18 20:35 Recent Labs: Laboratory Last Values WBC 5.3 Th/cmm (4.8-10.8) 12/19/18 20:35 RBC 4.54 Mil/cmm (3.80-5.80) 12/19/18 20:35 Hgb 13.4 gm/dL (12-16) 12/19/18 20:35 Hct 39.7 % (41.0-60) L 12/19/18 20:35 MCV 87.5 fl (80-99) 12/19/18 20:35 MCH 29.5 pg (27.0-31.0) 12/19/18 20:35 MCHC Differential 33.8 pg (28.0-36.0) 12/19/18 20:35 RDW 13.6 % (11.5-20.0) 12/19/18 20:35 Plt Count 187 Th/cmm (150-400) 12/19/18 20:35 MPV 8.3 fl 12/19/18 20:35 Neutrophils % 65.0 % (40.0-80.0) 12/19/18 20:35 Lymphocytes % 23.7 % (20.0-50.0) 12/19/18 20:35 Monocytes % 8.4 % (2.0-10.0) 12/19/18 20:35 Eosinophils % 2.4 % (0.0-5.0) 12/19/18 20:35 Basophils % 0.5 % (0.0-2.0) 12/19/18 20:35 Sodium 138 mEq/L (136-145) 12/19/18 20:35 Potassium 4.1 mEq/L (3.5-5.1) 12/19/18 20:35 Chloride 104 mEq/L (98-107) 12/19/18 20:35 Carbon Dioxide 27.0 mEq/L (21.0-31.0) 12/19/18 20:35 Anion Gap 11.1 (7.0-16.0) 12/19/18 20:35 BUN 21 mg/dL (7-25) 12/19/18 20:35 Creatinine 1.0 mg/dL (0.7-1.3) 12/19/18 20:35 Est GFR ( Amer) > 60.0 ml/min (>90) 12/19/18 20:35 Est GFR (Non-Af Amer) > 60.0 ml/min 12/19/18 20:35 BUN/Creatinine Ratio 21.0 12/19/18 20:35 Glucose 112 mg/dL (70-105) H 12/19/18 20:35 Calcium 9.2 mg/dL (8.6-10.3) 12/19/18 20:35 Total Bilirubin 0.8 mg/dL (0.3-1.0) 12/19/18 20:35 AST 13 U/L (13-39) 12/19/18 20:35 ALT 10 U/L (7-52) 12/19/18 20:35 Alkaline Phosphatase 86 U/L (34-104) 12/19/18 20:35 Total Protein 6.5 gm/dL (6.0-8.3) 12/19/18 20:35 Albumin 4.0 gm/dL (4.2-5.5) L 12/19/18 20:35 Globulin 2.5 gm/dL 12/19/18 20:35 Albumin/Globulin Ratio 1.6 (1.0-1.8) 12/19/18 20:35 Triglycerides 115 mg/dL (<150) 12/20/18 05:15 Cholesterol 168 mg/dL (<200) 12/20/18 05:15 LDL Cholesterol Direct 127 mg/dL (75-193) 12/20/18 05:15 HDL Cholesterol 34 mg/dL (23-92) 12/20/18 05:15 TSH 1.47 uIU/ml (0.34-5.60) 12/19/18 20:35 Urine Source CLEAN C 12/19/18 20:35 Urine Color COLORLESS 12/19/18 20:35 Urine Clarity CLEAR (CLEAR) 12/19/18 20:35 Urine pH 5.0 (4.6 - 8.0) 12/19/18 20:35 Ur Specific [place] 1.015 (1.005-1.030) 12/19/18 20:35 Urine Protein NEGATIVE mg/dL (NEGATIVE) 12/19/18 20:35 Urine Glucose (UA) NEGATIVE mg/dL (NEGATIVE) 12/19/18 20:35 Urine Ketones NEGATIVE mg/dL (NEGATIVE) 12/19/18 20:35 Urine Blood TRACE (NEGATIVE) 12/19/18 20:35 Urine Nitrate NEGATIVE (NEGATIVE) 12/19/18 20:35 Urine Bilirubin NEGATIVE (NEGATIVE) 12/19/18 20:35 Urine Urobilinogen 0.2 E.U./dL (0.2 - 1.0) 12/19/18 20:35 Ur Leukocyte Esterase NEGATIVE (NEGATIVE) 12/19/18 20:35 Urine RBC NONE SEEN /hpf (0-5) 12/19/18 20:35 Urine WBC 0-2 /hpf (0-5) 12/19/18 20:35 Ur Epithelial Cells NONE SEEN /lpf (FEW) 12/19/18 20:35 Urine Bacteria NONE SEEN /hpf (NONE SEEN) 12/19/18 20:35 RPR NONREACTIVE (NONREACTIVE) 12/19/18 20:35 - Physical Exam Vitals and I&O: Vital Signs Temp 97.7 F 12/29/18 14:22 Pulse 76 12/29/18 14:22 Resp 20 12/29/18 20:00 BP 120/72 12/29/18 14:22 Pulse Ox 97 12/29/18 14:22 Intake & Output 12/29/18 12/29/18 12/30/18 06:59 18:59 06:59 Intake Total 1200 Balance 1200 Intake: Oral 1200 Other: # Voids 4 # Bowel Movements 1 Active Medications: Current Medications Acetaminophen (Tylenol) 650 mg PO Q4HR PRN PRN Reason: PAIN Stop: 02/17/19 22:57 Last Admin: 12/26/18 14:32 Dose: 650 mg Aripiprazole (Abilify) 7.5 mg PO DAILY [facility]; Protocol Stop: 02/26/19 08:59 Last Admin: 12/29/18 08:24 Dose: 7.5 mg Cholecalciferol (Vitamin D3) 3,000 iu PO DAILY [place] Stop: 02/18/19 08:59 Last Admin: 12/29/18 08:25 Dose: 3,000 iu Docusate Sodium (Colace) 100 mg PO BID [place] Stop: 02/18/19 08:59 Last Admin: 12/29/18 16:30 Dose: 100 mg Donepezil HCl (Aricept) 10 mg PO HS [place] Stop: 02/18/19 20:59 Last Admin: 12/29/18 21:06 Dose: 10 mg Lorazepam (Ativan) 0.5 mg PO Q4HR PRN; Protocol PRN Reason: Anxiety Stop: 02/25/19 12:27 Memantine (Namenda) 10 mg PO BID [place] Stop: 02/18/19 08:59 Last Admin: 12/29/18 16:30 Dose: 10 mg Timolol Maleate (Timoptic 0.5% Ophth Soln) 1 drop EACH EYE BID [place] Stop: 02/18/19 08:59 Last Admin: 12/29/18 16:30 Dose: 1 drop Zolpidem Tartrate (Ambien) 5 mg PO HS PRN PRN Reason: Insomnia Stop: 02/25/19 12:29 Last Admin: 12/29/18 21:06 Dose: 5 mg General: No acute distress HEENT: PERRLA Neck: Supple, JVD Cardiovascular: Regular rate, Normal S1, Normal S2 Lungs: Clear to auscultation Abdomen: Bowel sounds, Soft Assessment/Plan - Assessment Assessment: 1.HYPERLIPIDEMIA. 2.DJD. 3.DEMENTIA. 4.PSYCHOSIS - Plan Plan: continue current treatment Nutritional Asmnt/Malnutr-PDOC - Dietary Evaluation Malnutrition Findings (Please click <Entered> for more info): Nutritional Asmnt/Malnutrition Start: 12/23/18 13: 06 Text: Status: Complete Freq: Protocol: Document 12/23/18 13:06 BIRGIT (Rec: 12/23/18 13:14 [id number]) Nutritional Asmnt/Malnutrition Patient General Information Nutritional Screening Moderate Risk Diagnosis Psychosis Pertinent Medical Hx/Surgical Hx DM, CVA/TIA, Arthritis, Status post UTI, Psychosis, Traumatic brain injury, Hypokalemia, Hyperlipidemia, Degenerative joint disease, dementia, glaucoma Subjective Information Pt is a 68-year-old male from extended care facility admitted on 12/19 c/o increased agitation and aggressive behavior. Pt is currently eating an estimated 80% meals x 3 days per Meal/Nutrition Activity Record. HT: 55 WT: 171 LB (77.73 kg) ADJ BW: 68 kg BMI: 28.52 (Overweight) GI: WNL, Flat, Non-Tender BM: 12/23 x 1 I/O: 1320/Not Noted Skin: WNL, Intact Ernst: 22 Diet Order: CCHO 60 gm Estimated Energy Needs: ( Overweight, ADJ BW) 7944-0352 kcals (20-25 kcals/ kg) 55-61 g Pro (0.8-0.9 g/kg) 3138-3819 ml (25-30 ml/kg) Pt is currently eating an estimated 80% meals x 3 days per Meal/Nutrition Activity Record. Dietary is currently providing an estimated 2015 kcals and 93 gm Pro. Per Pt PO intake, this is providing an estimated 1600 kcals and 74 gm Pro, to meet 100% kcal and 100% Pro needs - Adequate. Current Diet Order/ Nutrition Support CCHO 60 gm Pertinent Medications Vitamin D3, Colace Pertinent Labs 12/19: Hgb/Hct 13.4/39.7, Glucose 112, Alb 4.0 Nutritional Hx/Data Height 1.65 m Height (Calculated Centimeters) 165.1 Current Weight (lbs) 77.564 kg Weight (Calculated Kilograms) 77.6 Weight (Calculated Grams) 33298.3 [place] Body Weight 61.5 kg % [place] Body Weight 126 Body Mass Index (BMI) 28.4 Weight Status Overweight GI Symptoms GI Symptoms None Last BM 12/23 x 1 Skin Integrity/Comment: WNL, Intact Ernst: 22 Current %PO Good (75-100%) Estimated Nutritional Goals BEE in Kcals: Adj wt of IBW Calories/Kcals/Kg 20-25 Kcals Calculated 8638-5827 Protein: Adj wt of IBW Protein g/k.8-0.9 Protein Calculated 55-61 Fluid: ml 0994-9953 ml (25-30 ml/kg) Nutritional Problem No current Nutrition Prob Problem N/A Etiology N/A Signs/Symptoms: N/A Malnutrition Related to Morbid Obesity Malnutrition related to morbid obesity No Intervention/Recommendation Comments 1. Continue CCHO 60 gm diet as ordered. Expected Outcomes/Goals Expected Outcomes/Goals 1. PO intake to continue to meet >75% of nutritional needs . 2. Monitor PO intake, wt, nutrition related labs and skin integrity. 3. F/U as low risk in 7 days, 12/30
--- NOTE | 2018-12-30 20:59 | Internal Medicine Prog Note ---
Internal Medicine Subjective - Subjective Service Date: 12/30/18 Patient seen and examined:: without staff (HE IS CONFUSED) Patient is:: awake, in bed, confused Per staff patient has:: no adverse event Internal Medicine Objective - Results Result Diagrams: 12/19/18 20:35 12/19/18 20:35 Recent Labs: Laboratory Last Values WBC 5.3 Th/cmm (4.8-10.8) 12/19/18 20:35 RBC 4.54 Mil/cmm (3.80-5.80) 12/19/18 20:35 Hgb 13.4 gm/dL (12-16) 12/19/18 20:35 Hct 39.7 % (41.0-60) L 12/19/18 20:35 MCV 87.5 fl (80-99) 12/19/18 20:35 MCH 29.5 pg (27.0-31.0) 12/19/18 20:35 MCHC Differential 33.8 pg (28.0-36.0) 12/19/18 20:35 RDW 13.6 % (11.5-20.0) 12/19/18 20:35 Plt Count 187 Th/cmm (150-400) 12/19/18 20:35 MPV 8.3 fl 12/19/18 20:35 Neutrophils % 65.0 % (40.0-80.0) 12/19/18 20:35 Lymphocytes % 23.7 % (20.0-50.0) 12/19/18 20:35 Monocytes % 8.4 % (2.0-10.0) 12/19/18 20:35 Eosinophils % 2.4 % (0.0-5.0) 12/19/18 20:35 Basophils % 0.5 % (0.0-2.0) 12/19/18 20:35 Sodium 138 mEq/L (136-145) 12/19/18 20:35 Potassium 4.1 mEq/L (3.5-5.1) 12/19/18 20:35 Chloride 104 mEq/L (98-107) 12/19/18 20:35 Carbon Dioxide 27.0 mEq/L (21.0-31.0) 12/19/18 20:35 Anion Gap 11.1 (7.0-16.0) 12/19/18 20:35 BUN 21 mg/dL (7-25) 12/19/18 20:35 Creatinine 1.0 mg/dL (0.7-1.3) 12/19/18 20:35 Est GFR ( Amer) > 60.0 ml/min (>90) 12/19/18 20:35 Est GFR (Non-Af Amer) > 60.0 ml/min 12/19/18 20:35 BUN/Creatinine Ratio 21.0 12/19/18 20:35 Glucose 112 mg/dL (70-105) H 12/19/18 20:35 Calcium 9.2 mg/dL (8.6-10.3) 12/19/18 20:35 Total Bilirubin 0.8 mg/dL (0.3-1.0) 12/19/18 20:35 AST 13 U/L (13-39) 12/19/18 20:35 ALT 10 U/L (7-52) 12/19/18 20:35 Alkaline Phosphatase 86 U/L (34-104) 12/19/18 20:35 Total Protein 6.5 gm/dL (6.0-8.3) 12/19/18 20:35 Albumin 4.0 gm/dL (4.2-5.5) L 12/19/18 20:35 Globulin 2.5 gm/dL 12/19/18 20:35 Albumin/Globulin Ratio 1.6 (1.0-1.8) 12/19/18 20:35 Triglycerides 115 mg/dL (<150) 12/20/18 05:15 Cholesterol 168 mg/dL (<200) 12/20/18 05:15 LDL Cholesterol Direct 127 mg/dL (75-193) 12/20/18 05:15 HDL Cholesterol 34 mg/dL (23-92) 12/20/18 05:15 TSH 1.47 uIU/ml (0.34-5.60) 12/19/18 20:35 Urine Source CLEAN C 12/19/18 20:35 Urine Color COLORLESS 12/19/18 20:35 Urine Clarity CLEAR (CLEAR) 12/19/18 20:35 Urine pH 5.0 (4.6 - 8.0) 12/19/18 20:35 Ur Specific [place] 1.015 (1.005-1.030) 12/19/18 20:35 Urine Protein NEGATIVE mg/dL (NEGATIVE) 12/19/18 20:35 Urine Glucose (UA) NEGATIVE mg/dL (NEGATIVE) 12/19/18 20:35 Urine Ketones NEGATIVE mg/dL (NEGATIVE) 12/19/18 20:35 Urine Blood TRACE (NEGATIVE) 12/19/18 20:35 Urine Nitrate NEGATIVE (NEGATIVE) 12/19/18 20:35 Urine Bilirubin NEGATIVE (NEGATIVE) 12/19/18 20:35 Urine Urobilinogen 0.2 E.U./dL (0.2 - 1.0) 12/19/18 20:35 Ur Leukocyte Esterase NEGATIVE (NEGATIVE) 12/19/18 20:35 Urine RBC NONE SEEN /hpf (0-5) 12/19/18 20:35 Urine WBC 0-2 /hpf (0-5) 12/19/18 20:35 Ur Epithelial Cells NONE SEEN /lpf (FEW) 12/19/18 20:35 Urine Bacteria NONE SEEN /hpf (NONE SEEN) 12/19/18 20:35 RPR NONREACTIVE (NONREACTIVE) 12/19/18 20:35 - Physical Exam Vitals and I&O: Vital Signs Temp 98 F 12/30/18 20:46 Pulse 76 12/30/18 20:46 Resp 20 12/30/18 20:46 BP 125/70 12/30/18 20:46 Pulse Ox 100 12/30/18 20:46 Intake & Output 12/30/18 12/30/18 12/31/18 06:59 18:59 06:59 Intake Total 120 1000 240 Balance 120 1000 240 Intake: Oral 120 1000 240 Other: # Voids 3 4 1 # Bowel Movements 0 1 Active Medications: Current Medications Acetaminophen (Tylenol) 650 mg PO Q4HR PRN PRN Reason: PAIN Stop: 02/17/19 22:57 Last Admin: 12/30/18 17:50 Dose: 650 mg Aripiprazole (Abilify) 7.5 mg PO DAILY [facility]; Protocol Stop: 02/26/19 08:59 Last Admin: 12/30/18 09:13 Dose: 7.5 mg Cholecalciferol (Vitamin D3) 3,000 iu PO DAILY [place] Stop: 02/18/19 08:59 Last Admin: 12/30/18 09:13 Dose: 3,000 iu Docusate Sodium (Colace) 100 mg PO BID [place] Stop: 02/18/19 08:59 Last Admin: 12/30/18 17:42 Dose: 100 mg Donepezil HCl (Aricept) 10 mg PO HS [place] Stop: 02/18/19 20:59 Last Admin: 12/29/18 21:06 Dose: 10 mg Lorazepam (Ativan) 0.5 mg PO Q4HR PRN; Protocol PRN Reason: Anxiety Stop: 02/25/19 12:27 Memantine (Namenda) 10 mg PO BID [place] Stop: 02/18/19 08:59 Last Admin: 12/30/18 17:42 Dose: 10 mg Timolol Maleate (Timoptic 0.5% Ophth Soln) 1 drop EACH EYE BID [facility] Stop: 02/18/19 08:59 Last Admin: 12/30/18 17:42 Dose: 1 drop Zolpidem Tartrate (Ambien) 5 mg PO HS PRN PRN Reason: Insomnia Stop: 02/25/19 12:29 Last Admin: 12/29/18 21:06 Dose: 5 mg General: demented HEENT: NC/AT, PERRLA, EOMI, anicteric sclerae, throat clear Neck: Supple, No JVD, No thyromegaly, +2 carotid pulse wo bruit, No LAD Lungs: CTAB Cardiovascular: RRR, Normal S1, Normal S2, without murmur Abdomen: soft, non-tender, non-distended Extremities: clear Neurological: no change Internal Medicine Assmt/Plan - Assessment Assessment: 1.HYPERLIPIDEMIA. 2.DJD. 3.DEMENTIA. 4.PSYCHOSIS - Plan Plan: CONTINUE ON CURRENT MEDICATION AND DIET Nutritional Asmnt/Malnutr-PDOC - Dietary Evaluation Malnutrition Findings (Please click <Entered> for more info): Nutritional Asmnt/Malnutrition Start: 12/23/18 13: 06 Text: Status: Complete Freq: Protocol: Document 12/23/18 13:06 BIRGIT (Rec: 12/23/18 13:14 BIRGIT [id number]) Nutritional Asmnt/Malnutrition Patient General Information Nutritional Screening Moderate Risk Diagnosis Psychosis Pertinent Medical Hx/Surgical Hx DM, CVA/TIA, Arthritis, Status post UTI, Psychosis, Traumatic brain injury, Hypokalemia, Hyperlipidemia, Degenerative joint disease, dementia, glaucoma Subjective Information Pt is a 68-year-old male from extended care facility admitted on 12/19 c/o increased agitation and aggressive behavior. Pt is currently eating an estimated 80% meals x 3 days per Meal/Nutrition Activity Record. HT: 55 WT: 171 LB (77.73 kg) ADJ BW: 68 kg BMI: 28.52 (Overweight) GI: WNL, Flat, Non-Tender BM: 12/23 x 1 I/O: 1320/Not Noted Skin: WNL, Intact Ernst: 22 Diet Order: CCHO 60 gm Estimated Energy Needs: ( Overweight, ADJ BW) 7465-1849 kcals (20-25 kcals/ kg) 55-61 g Pro (0.8-0.9 g/kg) 8384-0604 ml (25-30 ml/kg) Pt is currently eating an estimated 80% meals x 3 days per Meal/Nutrition Activity Record. Dietary is currently providing an estimated 2015 kcals and 93 gm Pro. Per Pt PO intake, this is providing an estimated 1600 kcals and 74 gm Pro, to meet 100% kcal and 100% Pro needs - Adequate. Current Diet Order/ Nutrition Support CCHO 60 gm Pertinent Medications Vitamin D3, Colace Pertinent Labs 12/19: Hgb/Hct 13.4/39.7, Glucose 112, Alb 4.0 Nutritional Hx/Data Height 1.65 m Height (Calculated Centimeters) 165.1 Current Weight (lbs) 77.564 kg Weight (Calculated Kilograms) 77.6 Weight (Calculated Grams) 57828.3 [place] Body Weight 61.5 kg % [place] Body Weight 126 Body Mass Index (BMI) 28.4 Weight Status Overweight GI Symptoms GI Symptoms None Last BM 12/23 x 1 Skin Integrity/Comment: WNL, Intact Ernst: 22 Current %PO Good (75-100%) Estimated Nutritional Goals BEE in Kcals: Adj wt of IBW Calories/Kcals/Kg 20-25 Kcals Calculated 8276-1597 Protein: Adj wt of IBW Protein g/k.8-0.9 Protein Calculated 55-61 Fluid: ml 3924-3907 ml (25-30 ml/kg) Nutritional Problem No current Nutrition Prob Problem N/A Etiology N/A Signs/Symptoms: N/A Malnutrition Related to Morbid Obesity Malnutrition related to morbid obesity No Intervention/Recommendation Comments 1. Continue CCHO 60 gm diet as ordered. Expected Outcomes/Goals Expected Outcomes/Goals 1. PO intake to continue to meet >75% of nutritional needs . 2. Monitor PO intake, wt, nutrition related labs and skin integrity. 3. F/U as low risk in 7 days, 12/30
--- NOTE | 2018-12-30 23:10 | Progress Notes ---
DATE: 12/30/2018 SUBJECTIVE: Case was discussed with staff of the patient, reviewed treatment plans and goals. The patient continues to be paranoid at times. Continues to be sexually inappropriate at times. Continues to have poor insight, unable to make safe plan for self-care. Working on adjusting his medication. He tolerated increase in Abilify with no sedation, no nausea, and no extrapyramidal symptoms. His lab work showed low hematocrit, the rest within normal range. His blood sugar is 112. He has a high triglyceride. Urinalysis is within normal range. RPR is nonreactive. We will continue to work with the patient in group therapy, milieu therapy, and adjust the medications as needed. [facility]# [id number]
--- NOTE | 2018-12-31 13:23 | Discharge Summary ---
DATE OF DISCHARGE: 12/31/2018 IDENTIFYING INFORMATION: The patient is a 68-year-old male. HISTORY OF PRESENT ILLNESS: The patient was not sure why he is here, said he was asked to come in to be examined. The patient apparently has been acting out with a history of depression, paranoia, dementia, and inappropriate sexual behavior. He has a prior attempt to harm himself, has been on Aricept 10 mg at bedtime and Namenda 10 mg twice a day. The patient denies that he will harm anyone or herself. He was a poor historian. Has no clue about his behavior. He has multiple prior admissions to this facility because of depression, paranoia with history of prior suicide attempt. COURSE IN THE HOSPITAL: The patient was started back on his medication, which is Aricept, Namenda and I added Abilify, increased the dose 7.5 mg daily. The patient also was kept on timolol eyedrops and docusate, cholecalciferol, patient progressively got better. He is sleeping well, eating well. He was no longer acting inappropriate. He did not acting anyway dangerous, so we felt he could be discharged to a lesser level of care. FINAL DIAGNOSES: Bipolar disorder, depressed, dementia. MEDICAL DIAGNOSES: As per medical doctor. The patient will be going back to [place]. The patient will follow up with the psychiatrist, primary care physician and therapist. EXPECTED OUTCOME: Stable if the patient complies with the above. [facility]# [id number]
== END 2018-12-31 16:15 | DRG 885 ==
LOC: ER 20:08 → GERO 21:45
PROVIDERS: ADMIT Psychiatry & Neurology Psychiatry; ATTEND Psychiatry & Neurology Psychiatry
DX: F31.9 Bipolar disorder, unspecified (principal); F03.90 Unspecified dementia, unspecified severity, without behavioral disturbance, psychotic disturbance, mood disturbance, and anxiety; E78.5 Hyperlipidemia, unspecified; M19.90 Unspecified osteoarthritis, unspecified site; F29 Unspecified psychosis not due to a substance or known physiological condition; E11.9 Type 2 diabetes mellitus without complications; H40.9 Unspecified glaucoma; F41.9 Anxiety disorder, unspecified; Z86.73 Personal history of transient ischemic attack (TIA), and cerebral infarction without residual deficits
CPT/HCPCS: 36415-UA; 80053-TC; 80061-TC; 81001-TC; 83036-90; 84443-TC; 85025-TC; 86592-TC; 93005; G0410; Z7610